=== PATIENT | male | born 1975 ===

== ENCOUNTER 2020-06-08 10:22 | Outpatient (REF) | payer BC, MEDICARE, MEDICAID, SELFPAY ==
[2020-06-08 11:29] LABS: MANUAL DIFF FLAG NO
[2020-06-08 11:38] LABS: Basophils Percent Auto 0.9 % (0-2); Eosinophils Absolute Auto 0.2 X10*3/uL (0.0-0.4); Eosinophils Percent Auto 3.5 % (0-4); Hematocrit 40.2 % (42-52); Hemoglobin 13.2 g/dl (14.0-18.0); Lymphocytes Absolute Auto 2.2 X10*3/uL (1.2-4.9); Lymphocytes Percent Auto 52.2 % (20-40); Mean Corpuscular HGB Conc 32.8 g/dl (31.0-36.0); Mean Corpuscular Hemoglobin 26.3 pg (27.0-33.0); Mean Corpuscular Volume 80.2 fL (80-98); Mean Platelet Volume 11.4 fL (9.4-12.4); Monocytes Absolute Auto 0.4 X10*3/uL (0.1-1.2); Monocytes Percent Auto 9.2 % (2-11); Neutrophils Absolute Auto 1.5 X10*3/uL (2.0-8.3); Neutrophils Percent Auto 34.2 % (45-73); Platelet Count 213 X10*3/uL (160-400); Red Blood Count 5.01 X10*6/uL (4.60-5.80); Red Cell Distribution Width 14.6 % (11.0-16.0); White Blood Count 4.3 X10*3/uL (4.8-10.8)
[2020-06-08 12:01] LABS: Alanine Aminotransferase 18 U/L (0-40); Albumin Level 4.4 g/dL (3.5-5.0); Alkaline Phosphatase 53 U/L (39-117); Anion Gap 12 (12-20); Aspartate Amino Transferase 18 U/L (5-37); Bilirubin Total 0.6 mg/dL (0.0-1.0); Blood Urea Nitrogen 15 mg/dL (9-16); Carbon Dioxide 30 mmol/L (22-29); Chloride 103 mmol/L (96-108); Cholesterol 184 mg/dL; Estimated Glomerular Filt Rate > 60; Glucose Fasting 74 mg/dL (60-99); HDL Cholesterol 61 mg/dL; LDL Cholesterol Calculated 109 mg/dl; Potassium 3.7 mmol/l (3.3-5.1); Sodium 141 mmol/L (135-145); Total Protein 7.7 g/dL (6.5-8.0); Triglycerides 72 mg/dL
[2020-06-08 12:24] LABS: Prostate Specific Antigen Scr 0.41 ng/mL (<0.05-4.0); TSH reflex Free T4 0.43 mIU/mL (0.32-4.0)
[2020-06-08 12:32] LABS: Creatinine Urine 290.07 mg/dL; Microalbum/Creatinine Ratio Ur 4.4 ug/mg cr
== END 2020-06-08 10:23 | disposition home or self-care (01) ==
LOC: HO.LAB 10:22
PROVIDERS: PCP Internal Medicine; Visit Provider Physician Assistant
DX: I10 Essential (primary) hypertension (principal); Z12.5 Encounter for screening for malignant neoplasm of prostate
CPT/HCPCS: 36415; 80053; 80061; 82043; 84153; 84443; 85025

== ENCOUNTER 2020-06-21 17:22 | Outpatient (REF) | payer BC, MEDICAID, SELFPAY | END 2020-06-21 17:23 | disposition home or self-care (01) | LOC: HO.LAB 17:22 | PROVIDERS: PCP Internal Medicine; Visit Provider Internal Medicine | DX: Z20.828 Contact with and (suspected) exposure to other viral communicable diseases (principal) | CPT/HCPCS: U0003 ==

== ENCOUNTER 2020-07-08 14:31 | Outpatient (REF) | payer BC, MEDICAID, SELFPAY | END 2020-07-08 14:32 | disposition home or self-care (01) | LOC: HO.LAB 14:31 | PROVIDERS: PCP Internal Medicine; Visit Provider Internal Medicine | DX: Z20.828 Contact with and (suspected) exposure to other viral communicable diseases (principal) | CPT/HCPCS: C9803; U0003 ==

== ENCOUNTER 2020-08-27 11:34 | Outpatient (REF) | payer BC, MEDICARE, MEDICAID, SELFPAY ==
[2020-08-27 13:34] LABS: MANUAL DIFF FLAG NO
[2020-08-27 13:48] LABS: Basophils Absolute Auto 0.1 X10*3/uL (0.0-0.2); Basophils Percent Auto 1.3 % (0-2); Eosinophils Absolute Auto 0.1 X10*3/uL (0.0-0.4); Eosinophils Percent Auto 3.6 % (0-4); Hematocrit 40.1 % (42-52); Hemoglobin 13.3 g/dl (14.0-18.0); Immature Retic Fraction 3.8 % (2.3-13.4); Lymphocytes Absolute Auto 2.1 X10*3/uL (1.2-4.9); Lymphocytes Percent Auto 54.6 % (20-40); Mean Corpuscular HGB Conc 33.2 g/dl (31.0-36.0); Mean Corpuscular Hemoglobin 26.8 pg (27.0-33.0); Mean Corpuscular Volume 80.7 fL (80-98); Mean Platelet Volume 12.3 fL (9.4-12.4); Monocytes Absolute Auto 0.4 X10*3/uL (0.1-1.2); Monocytes Percent Auto 9.9 % (2-11); Neutrophils Absolute Auto 1.2 X10*3/uL (2.0-8.3); Neutrophils Percent Auto 30.6 % (45-73); Platelet Count 197 X10*3/uL (160-400); Red Blood Count 4.97 X10*6/uL (4.60-5.80); Red Cell Distribution Width 14.5 % (11.0-16.0); Retic HGB Equivalent 31.5 pg (30.0-35.0); Reticulocyte Percent 0.9 % (0.5-1.8); Reticulocytes Absolute 0.042 X10*6/uL (0.026-0.095); White Blood Count 3.9 X10*3/uL (4.8-10.8)
[2020-08-27 14:07] LABS: Iron 147 mcg/dL (45-160); Percent Iron Saturation 50 % (15-50); Total Iron Binding Capacity 295 mcg/dL (228-428); Unsaturated Iron Binding 148 ug/dL
[2020-08-27 14:30] LABS: Ferritin 20 ng/mL (20-250)
[2020-08-27 14:44] LABS: Folate 18.6 ng/mL (> or = 4.0); Vitamin B12 972 pg/mL (200-900)
== END 2020-08-27 11:35 | disposition home or self-care (01) ==
LOC: HO.LAB 11:34
PROVIDERS: PCP Internal Medicine; Visit Provider Internal Medicine
DX: D64.9 Anemia, unspecified (principal)
CPT/HCPCS: 36415; 82607; 82728; 82746; 83540; 85025; 85045

== ENCOUNTER 2020-09-03 08:35 | Outpatient (REF) | payer BC, MEDICARE, MEDICAID, SELFPAY ==
--- NOTE | ~2020-09-03 | US_ITS ---
EXAMINATION: US ABDOMEN COMPLETE CLINICAL INFORMATION: Right upper quadrant pain. COMPARISON: Previous abdominal ultrasound August [address] of the abdomen and pelvis March 2019 TECHNIQUE: Real-time imaging of the abdominal viscera. FINDINGS: PANCREAS: Normal. ABDOMINAL AORTA: The proximal, mid, and distal segments are normal in caliber. INFERIOR VENA CAVA: Visualized portions are normal. LIVER: Normal. The liver is normal in size. The liver contour is normal. Parenchymal echogenicity is normal. No focal hepatic lesion. There is no intrahepatic biliary duct dilatation seen. GALLBLADDER: There are several small echogenic densities adjacent to the gallbladder wall. These do not move or shadow and probably represent small gallbladder wall polyps. The largest measures 3 mm. This is similar to August 2017 exam. COMMON BILE DUCT: Normal in caliber measuring 0.2 cm in diameter. RIGHT KIDNEY: There is a 1.1 x 1.1 x 1.3 cm cyst. No hydronephrosis. No renal calculi. The kidney measures 9.5 cm in maximum dimension. LEFT KIDNEY: There is a 1.8 x 1.5 x 1.6 cm cyst. No hydronephrosis. No renal calculi. The kidney measures 11.3 cm in maximum dimension. SPLEEN: Normal. The spleen measures 7.9 cm in maximum dimension. FREE FLUID: None. US/US abdomen complete IMPRESSION: Small gallbladder wall polyps. Small bilateral renal cysts.
== END 2020-09-03 08:36 | disposition home or self-care (01) ==
LOC: HO.HMGCX 08:35
PROVIDERS: PCP Internal Medicine; Visit Provider Internal Medicine
DX: R10.11 Right upper quadrant pain (principal)
CPT/HCPCS: 76700

== ENCOUNTER 2021-01-11 11:15 | Outpatient (REF) | payer BC, MEDICARE, MEDICAID, SELFPAY ==
[2021-01-11 12:02] LABS: Hematocrit 40.8 % (42-52); Hemoglobin 13.5 g/dl (14.0-18.0); Mean Corpuscular HGB Conc 33.1 g/dl (31.0-36.0); Mean Corpuscular Hemoglobin 26.4 pg (27.0-33.0); Mean Corpuscular Volume 79.7 fL (80-98); Mean Platelet Volume 11.1 fL (9.4-12.4); Platelet Count 180 X10*3/uL (160-400); Red Blood Count 5.12 X10*6/uL (4.60-5.80); Red Cell Distribution Width 14.3 % (11.0-16.0); White Blood Count 5.1 X10*3/uL (4.8-10.8)
[2021-01-11 12:37] LABS: Alanine Aminotransferase 18 U/L (0-40); Albumin Level 4.5 g/dL (3.5-5.0); Alkaline Phosphatase 59 U/L (39-117); Anion Gap 11 (12-20); Aspartate Amino Transferase 18 U/L (5-37); Bilirubin Total 0.7 mg/dL (0.0-1.0); Blood Urea Nitrogen 18 mg/dL (9-16); Calcium 9.5 mg/dL (8.4-10.2); Carbon Dioxide 30 mmol/L (22-29); Chloride 102 mmol/L (96-108); Cholesterol 171 mg/dL; Estimated Glomerular Filt Rate > 60; Glucose Fasting 84 mg/dL (60-99); HDL Cholesterol 61 mg/dL; LDL Cholesterol Calculated 96 mg/dl; Potassium 3.4 mmol/L (3.3-5.1); Prostate Specific Antigen Scr 0.36 ng/mL (<0.05-4.0); Sodium 140 mmol/L (135-145); TSH reflex Free T4 0.46 uIU/mL (0.32-4.0); Total Protein 7.7 g/dL (6.5-8.0); Triglycerides 71 mg/dL
== END 2021-01-11 11:16 | disposition home or self-care (01) ==
LOC: HO.LAB 11:15
PROVIDERS: PCP Internal Medicine; Visit Provider Physician Assistant
DX: Z12.5 Encounter for screening for malignant neoplasm of prostate (principal); I10 Essential (primary) hypertension
CPT/HCPCS: 36415; 80053; 80061; 84153; 84443; 85027

== ENCOUNTER 2021-01-19 18:00 | Outpatient (REF) | payer BC, MEDICARE, MEDICAID, SELFPAY ==
--- NOTE | ~2021-01-19 | MR_ITS ---
EXAMINATION: MR THORACIC SPINE WITHOUT CONTRAST MR LUMBAR SPINE WITHOUT CONTRAST CLINICAL INFORMATION: Scoliosis COMPARISON: Most recent thoracic and lumbar spine CT dated 12/25/2014. TECHNIQUE: Multisequence MR images of the thoracic and lumbar spine were obtained on a high-field strength scanner without contrast. FINDINGS: THORACIC SPINE: Prominent rotational dextroscoliosis of the thoracic spine is redemonstrated and appears centered at the T7 vertebral body. Alignment appears similar when compared to the CT dated 12/25/2014. There is artifact related to extensive posterior stabilization hardware extending from T4 inferiorly beyond the imaged field of view. Evaluation significantly limits the adjacent osseous structures. No evidence of acute fracture, however, if there is clinical concern, CT examination would better evaluate osseous structures. Simple bilateral renal cysts. Findings are not clinically significant and no follow-up imaging is recommended. Otherwise, the visualized paraspinal soft tissues are unremarkable. No significant disc bulge or neural foraminal stenosis within the upper thoracic spine. Evaluation for disc bulges and stenosis throughout the remaining thoracic spine is severely limited due to hardware artifact. LUMBAR SPINE: Levocurvature of the lumbar spine is redemonstrated centered at the L3 vertebral body. Prominent artifact from posterior stabilization hardware noted throughout the visualized lower thoracic spine extending to L3. Artifact limits the evaluation of the adjacent osseous structures. No evidence of acute fracture or subluxation. No loss of vertebral body height. No loss of intervertebral disc height. The paraspinal soft tissues are unremarkable. L1-L2: No significant disc bulge. No central canal or neural foraminal stenosis. L2-L3: No significant disc bulge. No central canal or neural foraminal stenosis. L3-L4: No significant disc bulge. No central canal or neural foraminal stenosis. L4-L5: No significant disc bulge. Bilateral facet arthropathy. No central canal or neural foraminal stenosis. L5-S1: No significant disc bulge. Bilateral facet arthropathy. No central canal or neural foraminal stenosis. MR/MR thoracic spine wo con IMPRESSION: 1. Prominent dextroscoliosis of the thoracic spine and associated levoscoliosis of the lumbar spine, unchanged in alignment when compared to the CT from 2015. Associated posterior stabilization hardware is redemonstrated with artifact significantly limiting evaluation of the adjacent osseous structures. 2. No definite evidence of acute osseous abnormality or hardware complication, however, if there is clinical concern, CT scan could help further evaluate for bony and hardware detail. 3. No significant disc bulge within the lower lumbar spine. Bilateral facet arthropathy at L4-L5 and L5-S1 without significant central canal or neural foraminal stenosis. Evaluation of the upper lumbar spine as well as the majority of the thoracic spine for disc bulges and stenosis is severely limited secondary to hardware artifact.
--- NOTE | ~2021-01-19 | MR_ITS ---
EXAMINATION: MR CERVICAL SPINE WITHOUT CONTRAST CLINICAL INFORMATION: Scoliosis. COMPARISON: Most recent cervical spine CT dated 04/29/2013 TECHNIQUE: MRI of the cervical spine was obtained using routine sequences without contrast. FINDINGS: VERTEBRAL BODIES AND PARASPINAL SOFT TISSUES: Straightening of the normal cervical lordosis, which may be positional or related to muscular spasm. No acute fracture or subluxation. No loss of vertebral body height. Loss of intervertebral disc height with disc desiccation at C5-C6 and C6-C7 where there are small endplate osteophytes. No marrow edema to suggest acute osseous injury. No abnormal signal within the visualized cord. The visualized paraspinal soft tissues are unremarkable. CERVICOMEDULLARY JUNCTION AND VISUALIZED POSTERIOR FOSSA: Unremarkable. SPINAL LEVELS: C2-C3: Small posterior central disc protrusion which partially effaces the ventral thecal sac. No significant neural foraminal stenosis. C3-C4: Shallow disc bulge which partially effaces the ventral thecal sac with left-sided uncinate spurring and mild left neural foraminal stenosis. C4-C5: Shallow broad-based disc bulge and posterior central disc protrusion which completely effaces the ventral thecal sac. Bilateral uncinate spurring with mild bilateral neural foraminal stenosis. C5-C6: Broad-based bulge with a shallow right paracentral disc protrusion which completely effaces the ventral thecal sac and minimally indents the adjacent cord. No significant neural foraminal stenosis. C6-C7: Shallow disc bulge and right-sided paracentral disc protrusion which completely effaces the ventral thecal sac. Bilateral uncinate spurring. No significant neural foraminal stenosis. C7-T1: No significant disc bulge. No central canal or neural foraminal stenosis. MR/MR cervical spine wo con IMPRESSION: 1. Mild degenerative disc disease at C4-C5 with a broad-based disc bulge and posterior central disc protrusion which effaces the ventral thecal sac and in combination with bilateral uncinate spurring causes mild bilateral neural foraminal stenosis. 2. Mild degenerative disc disease at C5-C6 with a broad-based disc bulge and shallow right paracentral disc protrusion which effaces the ventral thecal sac and minimally indents the adjacent cord. No neural foraminal stenosis. 3. Shallow disc bulge at C3-C4 with left-sided uncinate spurring and mild left neural foraminal stenosis. 4. Straightening of the normal cervical lordosis, which may be positional or related to muscular spasm.
== END 2021-01-19 18:01 | disposition home or self-care (01) ==
LOC: HO.MRI 18:00
PROVIDERS: PCP Internal Medicine; Visit Provider Internal Medicine
DX: M41.25 Other idiopathic scoliosis, thoracolumbar region (principal)
CPT/HCPCS: 72141; 72146; 72148

== ENCOUNTER 2021-02-03 09:11 | Emergency (ER) | payer BC, MEDICARE, MEDICAID, SELFPAY ==
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
[2021-02-03 09:13] VITALS: BP 171/126; PULSE 74; RESP 16; O2SAT 100; BMI 19.9
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
[2021-02-03] MEDS: Morphine Sulfate 4 MG/ML CARTRIDGE IVPUSH (09:40)
[2021-02-03 09:41] LABS: MANUAL DIFF FLAG NO
[2021-02-03] MEDS: 0.9 % Sodium Chloride 1,000 ML 999 ML IVCONT (09:41)
[2021-02-03 09:44] LABS: Basophils Absolute Auto 0.1 X10*3/uL (0.0-0.2); Basophils Percent Auto 1.2 % (0-2); Eosinophils Absolute Auto 0.2 X10*3/uL (0.0-0.4); Eosinophils Percent Auto 3.8 % (0-4); Hematocrit 38.2 % (42-52); Hemoglobin 12.8 g/dl (14.0-18.0); Imm Gran Abs Auto 0.01 X10*3/uL (0.00-0.03); Imm Gran Pct Auto 0.2 % (0.0-0.4); Lymphocytes Absolute Auto 2.1 X10*3/uL (1.2-4.9); Lymphocytes Percent Auto 49.1 % (20-40); Mean Corpuscular HGB Conc 33.5 g/dl (31.0-36.0); Mean Corpuscular Hemoglobin 26.9 pg (27.0-33.0); Mean Corpuscular Volume 80.4 fL (80-98); Mean Platelet Volume 11.3 fL (9.4-12.4); Monocytes Absolute Auto 0.4 X10*3/uL (0.1-1.2); Monocytes Percent Auto 9.7 % (2-11); Neutrophils Absolute Auto 1.5 X10*3/uL (2.0-8.3); Platelet Count 181 X10*3/uL (160-400); Red Blood Count 4.75 X10*6/uL (4.60-5.80); Red Cell Distribution Width 14.4 % (11.0-16.0); White Blood Count 4.2 X10*3/uL (4.8-10.8)
[2021-02-03] MEDS: ondansetron HCL 4 MG/2 ML VIAL IVPUSH (09:45)
[2021-02-03 10:00] VITALS: BP 159/103; PULSE 63; RESP 16; O2SAT 100
[2021-02-03 10:12] LABS: Alanine Aminotransferase 12 U/L (0-40); Albumin Level 3.1 g/dL (3.5-5.0); Alkaline Phosphatase 42 U/L (39-117); Aspartate Amino Transferase 11 U/L (5-37); Bilirubin Direct < 0.2 mg/dL (0.0-0.5); Bilirubin Total 0.4 mg/dL (0.0-1.0); Blood Urea Nitrogen 13 mg/dL (9-16); Carbon Dioxide 25 mmol/L (22-29); Estimated Glomerular Filt Rate > 60; Glucose Random 75 mg/dL (60-115); Sodium 143 mmol/L (135-145); Total Protein 5.3 g/dL (6.5-8.0)
[2021-02-03 10:19] LABS: Anion Gap 7 (12-20); Calcium 6.9 mg/dL (8.4-10.2); Chloride 114 mmol/L (96-108); Potassium 2.7 mmol/L (3.3-5.1)
[2021-02-03] MEDS: Potassium Chloride Packet 20 MEQ PACKET 40 MEQ PO (11:51)
[2021-02-03] MEDS: Acetaminophen 325 MG TABLET 650 MG PO (11:52)
[2021-02-03] MEDS: Cyclobenzaprine HCl 10 MG TABLET PO (11:52)
== END 2021-02-03 11:59 | disposition home or self-care (01) ==
PROVIDERS: Emergency Provider Emergency Medicine; PCP Internal Medicine
DX: T14.8XXA Other injury of unspecified body region, initial encounter (principal); E87.6 Hypokalemia; I10 Essential (primary) hypertension; Z79.899 Other long term (current) drug therapy; V89.2XXA Person injured in unspecified motor-vehicle accident, traffic, initial encounter; Y93.9 Activity, unspecified; Y92.410 Unspecified street and highway as the place of occurrence of the external cause; Y99.9 Unspecified external cause status
CPT/HCPCS: 36415; 70450; 71260; 72125; 74177; 80048; 80076; 85025; 96361; 96374; 96375; 99284; J2270; J2405

== ENCOUNTER 2021-04-19 11:30 | Outpatient (REF) | payer BC, MEDICAID, OTHER, SELFPAY ==
[2021-04-19 12:21] LABS: Anion Gap 12 (12-20); Carbon Dioxide 29 mmol/L (22-29); Chloride 103 mmol/L (96-108); Potassium 3.5 mmol/L (3.3-5.1); Sodium 140 mmol/L (135-145)
== END 2021-04-19 11:31 | disposition home or self-care (01) ==
LOC: HO.LAB 11:30
PROVIDERS: Visit Provider Physician Assistant
DX: E87.6 Hypokalemia (principal)
CPT/HCPCS: 36415; 80051

== ENCOUNTER 2021-05-18 09:48 | Outpatient (REF) | payer BC, MEDICAID, SELFPAY ==
--- NOTE | ~2021-05-18 | XR_ITS ---
EXAMINATION: XR SCOLIOSIS CLINICAL INFORMATION: Scoliosis status post spinal fusion. COMPARISON: Scoliosis study 12/08/2014. TECHNIQUE: PA and lateral views of the thoracolumbar spine are obtained. FINDINGS: Redemonstrated postsurgical changes of instrumented spinal fusion. The spinal hardware appears intact, without evidence of migration. There is residual spinal curvature as follows: Left convex cervicothoracic curvature of approximately 33 degrees, previously measuring 35 degrees. Right convex thoracic curvature of approximately 67 degrees, previously measuring 66 degrees. Left convex lumbar curvature of approximately 38 degrees, previously measuring 34 degrees. The lateral view again demonstrates mild straightening of the thoracic kyphosis and lumbar lordosis, similar compared to prior. There is mild iliac crest height discrepancy with the left side higher by approximately 1.5 cm. Risser 5. XR/XR scoliosis survey IMPRESSION: Stable postoperative appearance of the spine. No evidence of hardware complication. Residual spinal curvature is not substantially changed.
== END 2021-05-18 09:49 | disposition home or self-care (01) ==
LOC: HO.XRAY 09:48
PROVIDERS: PCP Internal Medicine; Visit Provider Physician Assistant Surgical
DX: T84.84XA Pain due to internal orthopedic prosthetic devices, implants and grafts, initial encounter (principal); M43.25 Fusion of spine, thoracolumbar region; M41.55 Other secondary scoliosis, thoracolumbar region
CPT/HCPCS: 72082

== ENCOUNTER 2021-06-17 12:56 | Outpatient (REF) | payer BC, MEDICARE, MEDICAID, SELFPAY ==
--- NOTE | ~2021-06-17 | CT_ITS ---
EXAMINATION: CT THORACIC SPINE WITHOUT CONTRAST CT LUMBAR SPINE WITHOUT CONTRAST CLINICAL INFORMATION: Scoliosis. Back pain. COMPARISON: MRI from 12/23/2020 TECHNIQUE: Multidetector helical imaging acquired in the axial plane with generation of reformatted acquisitions. This CT examination was performed using dose optimization techniques as appropriate, variously including the following: *Automated exposure control *Adjustment of mA and/or kV according to patient size (this includes techniques or standardized protocols for targeted exams where dose is matched to indication/reason for exam; i.e. extremities or head) *Use of iterative reconstruction technique DLP: 477, 482 mGy-cm. FINDINGS: There is a severe rightward scoliotic curvature of the thoracic spine with the apex of curvature at the T8 level a compensatory leftward curvature of the lumbar spine with the apex of curvature at the L2-L3 level. Aguirre rods in place with multilevel transpedicular screws spanning from the T4 through the L3 levels. No hardware fracture identified. At the T3 level, the left transpedicular screw courses across the level of the lateral recess and medial aspect of the pedicle, partially encroaching upon the central canal. Multilevel posterior osseous fusion changes are present from the T4 through the L3 levels. There are no compression fractures or subluxations. No periprosthetic lucencies identified. A disc-osteophyte complex is incompletely visualized with endplate sclerosis at the C6-C7 level. Moderate facet degeneration noted on the right side at the T2-T3 level with moderate right foraminal encroachment. No paraspinal soft tissue fluid collections are seen, though assessment is limited given presence of extensive hardware artifacts. The mid to lower lumbosacral canal is widely patent. Very mild annular bulges noted at the L4-L5 and L5-S1 levels. Bulging disc results in [id number] left foraminal encroachment at the L4-L5 level. There are nkpm-mj-iqowpvog degenerative changes and vacuum phenomenon in the sacroiliac joints bilaterally. Moderate amount of stool in the rectosigmoid colon. The paraspinal soft tissues are otherwise unremarkable. There is linear scarring versus atelectasis in the right lung base. No pleural effusions are seen. The visualized mediastinum is grossly unremarkable. CT/CT thoracic spine wo con IMPRESSION: Significant scoliotic curvature of the thoracolumbar spine with Aguirre rods in place. Posterior fusion hardware spanning from the T4 through the L3 levels. Left T3 transpedicular screw partially encroaches upon the central canal and left lateral recess. Multilevel posterolateral bony fusion changes. No hardware fracture visible. No periprosthetic lucencies identified.
--- NOTE | ~2021-06-17 | CT_ITS ---
EXAMINATION: CT THORACIC SPINE WITHOUT CONTRAST CT LUMBAR SPINE WITHOUT CONTRAST CLINICAL INFORMATION: Scoliosis. Back pain. COMPARISON: MRI from 12/23/2020 TECHNIQUE: Multidetector helical imaging acquired in the axial plane with generation of reformatted acquisitions. This CT examination was performed using dose optimization techniques as appropriate, variously including the following: *Automated exposure control *Adjustment of mA and/or kV according to patient size (this includes techniques or standardized protocols for targeted exams where dose is matched to indication/reason for exam; i.e. extremities or head) *Use of iterative reconstruction technique DLP: 477, 482 mGy-cm. FINDINGS: There is a severe rightward scoliotic curvature of the thoracic spine with the apex of curvature at the T8 level a compensatory leftward curvature of the lumbar spine with the apex of curvature at the L2-L3 level. Aguirre rods in place with multilevel transpedicular screws spanning from the T4 through the L3 levels. No hardware fracture identified. At the T3 level, the left transpedicular screw courses across the level of the lateral recess and medial aspect of the pedicle, partially encroaching upon the central canal. Multilevel posterior osseous fusion changes are present from the T4 through the L3 levels. There are no compression fractures or subluxations. No periprosthetic lucencies identified. A disc-osteophyte complex is incompletely visualized with endplate sclerosis at the C6-C7 level. Moderate facet degeneration noted on the right side at the T2-T3 level with moderate right foraminal encroachment. No paraspinal soft tissue fluid collections are seen, though assessment is limited given presence of extensive hardware artifacts. The mid to lower lumbosacral canal is widely patent. Very mild annular bulges noted at the L4-L5 and L5-S1 levels. Bulging disc results in hkoc-tu-htpnqwzn left foraminal encroachment at the L4-L5 level. There are qnfs-lx-jzasohzq degenerative changes and vacuum phenomenon in the sacroiliac joints bilaterally. Moderate amount of stool in the rectosigmoid colon. The paraspinal soft tissues are otherwise unremarkable. There is linear scarring versus atelectasis in the right lung base. No pleural effusions are seen. The visualized mediastinum is grossly unremarkable. CT/CT lumbar spine wo con IMPRESSION: Significant scoliotic curvature of the thoracolumbar spine with Aguirre rods in place. Posterior fusion hardware spanning from the T4 through the L3 levels. Left T3 transpedicular screw partially encroaches upon the central canal and left lateral recess. Multilevel posterolateral bony fusion changes. No hardware fracture visible. No periprosthetic lucencies identified.
== END 2021-06-17 12:57 | disposition home or self-care (01) ==
LOC: HO.CT 12:56
PROVIDERS: Visit Provider Orthopaedic Surgery
DX: T84.84XD Pain due to internal orthopedic prosthetic devices, implants and grafts, subsequent encounter (principal)
CPT/HCPCS: 72128; 72131

== ENCOUNTER 2021-07-25 08:50 | Outpatient (REF) | payer MEDICARE, MEDICAID, SELFPAY ==
[2021-07-25 09:08] LABS: MANUAL DIFF FLAG NO
[2021-07-25 09:24] LABS: Basophils Percent Auto 0.9 % (0-2); Eosinophils Absolute Auto 0.2 X10*3/uL (0.0-0.4); Eosinophils Percent Auto 3.5 % (0-4); Hematocrit 39.2 % (42.0-52.0); Hemoglobin 12.9 g/dl (14.0-18.0); Imm Gran Abs Auto 0.01 X10*3/uL (0.00-0.03); Imm Gran Pct Auto 0.2 % (0.0-0.4); Lymphocytes Absolute Auto 1.9 X10*3/uL (1.2-4.9); Lymphocytes Percent Auto 44.8 % (20-40); Mean Corpuscular HGB Conc 32.9 g/dl (31.0-36.0); Mean Corpuscular Hemoglobin 26.5 pg (27.0-33.0); Mean Corpuscular Volume 80.7 fL (80.0-98.0); Mean Platelet Volume 11.2 fL (9.4-12.4); Monocytes Absolute Auto 0.5 X10*3/uL (0.1-1.2); Monocytes Percent Auto 10.4 % (2-11); Neutrophils Absolute Auto 1.7 x10*3/uL (2.0-8.3); Neutrophils Percent Auto 40.2 % (45-73); Platelet Count 216 X10*3/uL (160-400); Red Blood Count 4.86 X10*6/uL (4.60-5.80); Red Cell Distribution Width 14.3 % (11.0-16.0); White Blood Count 4.3 X10*3/uL (4.8-10.8)
[2021-07-25 09:37] LABS: Estimated Average Glucose 111 mg/dL; Hemoglobin A1c % 5.5 %
[2021-07-25 09:48] LABS: Alanine Aminotransferase 22 U/L (0-40); Albumin Level 4.2 g/dL (3.5-5.0); Alkaline Phosphatase 57 U/L (39-117); Anion Gap 8 (12-20); Aspartate Amino Transferase 17 U/L (5-37); Bilirubin Total 0.6 mg/dL (0.0-1.0); Blood Urea Nitrogen 11 mg/dL (9-16); Calcium 9.5 mg/dL (8.4-10.2); Carbon Dioxide 32 mmol/L (22-29); Chloride 103 mmol/L (96-108); Cholesterol 158 mg/dL; Estimated Glomerular Filt Rate > 60; Glucose Fasting 83 mg/dL (60-99); HDL Cholesterol 39 mg/dL; LDL Cholesterol Calculated 95 mg/dl; Potassium 3.4 mmol/L (3.3-5.1); Sodium 140 mmol/L (135-145); Total Protein 7.3 g/dL (6.5-8.0); Triglycerides 122 mg/dL
== END 2021-07-25 08:51 | disposition home or self-care (01) ==
LOC: HO.LAB 08:50
PROVIDERS: PCP Internal Medicine; Visit Provider Nurse Practitioner Acute Care
DX: I10 Essential (primary) hypertension (principal)
CPT/HCPCS: 36415; 80053; 80061; 83036; 85025

== ENCOUNTER 2021-08-01 11:18 | Outpatient (REF) | payer BC, MEDICAID, SELFPAY ==
[2021-08-01 13:08] LABS: Binax Internal Control QC Valid; Binax Now Covid-19 Ag Positive (Negative)
== END 2021-08-01 11:19 | disposition home or self-care (01) ==
LOC: HO.LAB 11:18
PROVIDERS: Visit Provider Internal Medicine
DX: Z20.822 Contact with and (suspected) exposure to COVID-19 (principal)
CPT/HCPCS: 36415; C9803

== ENCOUNTER 2021-08-09 07:52 | Outpatient (REF) | payer BC, MEDICAID, SELFPAY ==
[2021-08-09 08:37] LABS: Binax Internal Control QC Valid; Binax Now Covid-19 Ag Negative (Negative)
== END 2021-08-09 07:53 | disposition home or self-care (01) ==
LOC: HO.LAB 07:52
PROVIDERS: Visit Provider Internal Medicine
DX: Z20.822 Contact with and (suspected) exposure to COVID-19 (principal)
CPT/HCPCS: C9803

== ENCOUNTER 2021-08-29 08:51 | Outpatient (REF) | payer BC, MEDICARE, SELFPAY ==
[2021-08-29 10:11] LABS: Anion Gap 11 (12-20); Blood Urea Nitrogen 12 mg/dL (9-16); Calcium 9.6 mg/dL (8.4-10.2); Carbon Dioxide 32 mmol/L (22-29); Chloride 102 mmol/L (96-108); Estimated Glomerular Filt Rate > 60; Glucose Random 86 mg/dL (60-115); Potassium 3.7 mmol/L (3.3-5.1); Sodium 141 mmol/L (135-145)
== END 2021-08-29 08:52 | disposition home or self-care (01) ==
LOC: HO.LAB 08:51
PROVIDERS: PCP Internal Medicine; Visit Provider Internal Medicine
DX: E87.6 Hypokalemia (principal)
CPT/HCPCS: 36415; 80048

== ENCOUNTER 2021-10-24 09:09 | Outpatient (REF) | payer BC, MEDICARE, MEDICAID, SELFPAY ==
[2021-10-24 09:33] LABS: MANUAL DIFF FLAG NO
[2021-10-24 10:04] LABS: Basophils Absolute Auto 0.1 X10*3/uL (0.0-0.2); Basophils Percent Auto 1.1 % (0-2); Eosinophils Absolute Auto 0.2 X10*3/uL (0.0-0.4); Eosinophils Percent Auto 2.6 % (0-4); Hematocrit 38.8 % (42.0-52.0); Hemoglobin 12.8 g/dl (14.0-18.0); Imm Gran Abs Auto 0.01 X10*3/uL (0.00-0.03); Imm Gran Pct Auto 0.2 % (0.0-0.4); Mean Corpuscular Hemoglobin 27.1 pg (27.0-33.0); Monocytes Absolute Auto 0.6 X10*3/uL (0.1-1.2); Monocytes Percent Auto 9.8 % (2-11); Neutrophils Absolute Auto 3.3 x10*3/uL (2.0-8.3); Neutrophils Percent Auto 53.3 % (45-73); Platelet Count 216 X10*3/uL (160-400); Red Blood Count 4.73 X10*6/uL (4.60-5.80); White Blood Count 6.2 X10*3/uL (4.8-10.8)
[2021-10-24 10:30] LABS: Alanine Aminotransferase 21 U/L (0-40); Albumin Level 4.4 g/dL (3.5-5.0); Alkaline Phosphatase 56 U/L (39-117); Anion Gap 10 (12-20); Aspartate Amino Transferase 17 U/L (5-37); Bilirubin Total 0.5 mg/dL (0.0-1.0); Blood Urea Nitrogen 13 mg/dL (9-16); Calcium 9.4 mg/dL (8.4-10.2); Carbon Dioxide 31 mmol/L (22-29); Chloride 102 mmol/L (96-108); Estimated Glomerular Filt Rate > 60; Glucose Random 82 mg/dL (60-115); Potassium 3.8 mmol/L (3.3-5.1); Sodium 139 mmol/L (135-145); Total Protein 7.5 g/dL (6.5-8.0)
== END 2021-10-24 09:10 | disposition home or self-care (01) ==
LOC: HO.LAB 09:09
PROVIDERS: PCP Internal Medicine; Visit Provider Orthopaedic Surgery
DX: T84.84XA Pain due to internal orthopedic prosthetic devices, implants and grafts, initial encounter (principal); M43.25 Fusion of spine, thoracolumbar region
CPT/HCPCS: 36415; 80053; 85025

== ENCOUNTER 2021-11-20 02:50 | Emergency (ER) | payer BC, MEDICARE, SELFPAY ==
--- NOTE | ~2021-11-20 | CT_ITS ---
EXAMINATION: CT ABDOMEN AND PELVIS WITH CONTRAST CLINICAL INFORMATION: Abdominal pain. Question constipation. Spinal surgery hardware removed 1 week ago. COMPARISON: CT thoracic and lumbar spine 06/17/2021. TECHNIQUE: Multidetector volumetric images were obtained from the superior aspect of the liver through the pubic symphysis following administration 85 mL of Omnipaque 350 intravenous contrast. Sagittal and coronal reformatted images were obtained on the technologist's workstation. Oral contrast: No This CT examination was performed using dose optimization techniques as appropriate, variously including the following: *Automated exposure control *Adjustment of mA and/or kV according to patient size (this includes techniques or standardized protocols for targeted exams where dose is matched to indication/reason for exam; i.e. extremities or head) *Use of iterative reconstruction technique DLP: 452 mGy-cm FINDINGS: LUNG BASES: The visualized lung bases are unremarkable. LIVER, GALLBLADDER, AND BILIARY TREE: The liver is normal in size, shape, and attenuation. No focal hepatic lesion or biliary ductal dilatation is present. The gallbladder is unremarkable with no evidence of radiopaque gallstones, gallbladder wall thickening, or obvious pericholecystic inflammatory changes. PANCREAS: Unremarkable. SPLEEN: Unremarkable. ADRENAL GLANDS: Unremarkable. KIDNEYS AND URETERS: Multiple bilateral rounded low density benign-appearing simple cyst requiring no additional imaging follow-up are noted. No hydronephrosis or renal calculi. BLADDER: Distended. GASTROINTESTINAL TRACT: Moderate quantity of stool within the colon. No colonic distention. The appendix measures 8 mm in diameter (series 7 image 36, series 8 image 64). No periappendiceal inflammatory changes are noted. Gas is noted within the base of the appendix. Fluid is present within the lumen of the fundus and distal body of the appendix. Normal terminal ileum. No free intraperitoneal fluid or gas collections. Normal stomach without gastric distention. No small bowel dilatation. ABDOMINAL WALL: No significant hernia is appreciated. LYMPH NODES: Normal. VASCULAR: Unremarkable. PELVIC VISCERA: Normal size prostate. OSSEOUS STRUCTURES: Marked thoracic scoliosis. Posterior paraspinous fluid and minimal punctate gas along the visualized thoracic spine and lumbar spine prominent thoracolumbar scoliosis convex rightward. Multiple transpedicular screw holes are noted related to previously visualized hardware. CT/CT abdomen pelvis w con IMPRESSION: *Borderline findings suspicious for appendicitis. The appendix measures 8 mm diameter, 2 mm above normal limits in size. No periappendiceal inflammatory changes. No free intraperitoneal fluid or gas collections. (Series 7 image 36, series 8 image 64, series 3 image 53). *Moderate colonic stool burden. No colonic dilatation. No small bowel dilatation. No dilatation of the stomach. *Partially visualized prominent thoracolumbar scoliosis and postoperative paraspinous fluid collection status post removal of spinal fixation hardware. This critical result was discussed with Svetlana Brooks MD by telephone at 11/20/2021 6:33 AM and it was ascertained that the content and urgency of the report was understood at the time of direct communication.
[2021-11-20 03:07] VITALS: BP 151/102; PULSE 97; RESP 16; O2SAT 97; BMI 26.6
[2021-11-20 03:16] VITALS: TEMP 37.5
[2021-11-20 04:09] VITALS: BP 151/93; PULSE 81; RESP 16; O2SAT 96
--- NOTE | 2021-11-20 04:52 | ED_ITS ---
HPI - General Adult General Chief complaint: Back Pain/Injury Stated complaint: back pain; surgery 1wk ago Time Seen by Provider: 11/20/21 04:37 Source: patient and family () Mode of arrival: ambulatory History of Present Illness HPI narrative: 46-year-old male who is postop day 4, status post spinal hardware removal and now presents with increasing constipation as well as lower back pain that patient describes is worse with trying to move from side to side. He denies any difficulties with urination, groin numbness, pain/weakness/numbness/tingling down either lower extremity, denies any fevers or chills but has been unable to have a bowel movement and patient states feeling chills. Related Data Home Medications Medication Instructions Recorded Confirmed gabapentin 300 mg 11/20/21 lidocaine 5 % topical patch 2 patch TOPICAL DAILY 11/20/21 11/20/21 oxycodone 10 mg tablet,crush tab PO 11/20/21 resistant,extended release 12 hr senna 17 mg 11/20/21 Previous Rx's Medication Instructions Recorded amlodipine 10 mg tablet 10 mg PO DAILY 90 Days #90 tab 07/12/21 lisinopril 40 mg tablet 40 mg PO DAILY #90 tab 07/12/21 ibuprofen 800 mg tablet 800 mg PO Q8H PRN #30 tab 07/19/21 CPAP (CPAP Machine/Device) #1 ea 08/23/21 quetiapine 50 mg tablet 50 mg PO BEDTIME 90 Days #90 tab 08/23/21 tramadol 50 mg tablet 50 mg PO BEDTIME PRN 30 Days #30 08/23/21 tab Allergies Allergy/AdvReac Type Severity Reaction Status Date / Time No Known Allergies Allergy Verified 08/23/21 09:26 Review of Systems Review of Systems: Pertinent positives and negatives as stated in HPI 10 point review of systems is otherwise negative. [facility] Past Medical History Source: nursing notes reviewed Medical History Allergic rhinitis Cervical myofascial strain Contusion of left chest wall Gallbladder polyp Hepatitis B core antibody positive Hydrocele Insomnia Left-sided headache Obstructive sleep apnea Vitamin D deficiency Surgical History History of hydrocelectomy History of surgery Thoracolumbar back pain Family History Family History Father Hypertension Mother Hypertension Maternal Aunt Past heart attack Sister Brain aneurysm Social History Social History Housing: House Alcohol intake: never Patient Tobacco Use Status: Never used Tobacco e-Cigarette/Vaping Use: Never Used Second Hand Smoke Exposure: Yes Advance Directives: No service: No Current occupational status: unemployed Physical Exam ED Vital Signs: Vital Signs - 24 hr 11/20/21 03:07 11/20/21 03:16 11/20/21 04:09 Temperature 99.5 F Pulse Rate 97 81 Respiratory Rate 16 16 Blood Pressure 151/102 H 151/93 H Pulse Oximetry 97 96 11/20/21 06:06 Temperature Pulse Rate 68 Respiratory Rate 18 Blood Pressure 144/91 H Pulse Oximetry 98 BMI result Body Mass Index 26.6 VITAL SIGNS: Reviewed. GENERAL: Well developed, well nourished, in no acute distress. HEAD: Normocephalic/atraumatic EYES: PERRLA, EOMI EARS: Ext canals without abnormality OROPHARYNX: no oral lesions noted, posterior pharynx clear LUNGS: Normal breath sounds. No adventitious sounds or accessory muscle use. SpO2<97> CARDIOVASCULAR: Regular rate and rhythm without noted murmurs ABDOMEN: Soft, diffuse abdominal discomfort without specific rebound, non- distended with bowel sounds. BACK: Midline well-approximated incision from mid scapular vertebral area down into approximate L3 without erythema, induration or drainage. MUSCULOSKELETAL: No tenderness, deformities, or effusions noted on gross inspection. EXTREMITIES: No cyanosis, clubbing or edema. SKIN: Inspection of the skin reveals no rashes NEUROLOGIC: Alert and oriented x 4. Strength and sensation to light touch were grossly intact x 4. Course Course Course Narrative: 46-year-old male with history and clinical presentation consistent with suspected constipation associated with pain medication for postsurgical pain control. No evidence to suggest spine final abscess or cauda equina, however will scan abdomen pelvis with IV contrast and obtain basic labs. Review of all investigations only significant for an appendix which measures 8 mm in diameter without periappendiceal inflammatory changes and other was no leukocytosis and no concerning findings of the spine. The results were discussed with the patient and his at bedside as well as discussing the CT findings with the on-call surgeon who does not feel that intervention is required at this time. These recommendations were discussed with patient and his and patient was discharged home in stable condition with strict instructions to return should he began developing fevers, vomiting and/or worsening abdominal pain. Medical Decision Making Lab Data Result diagrams: 11/20/21 05:05 11/20/21 05:05 Labs: Lab Results 11/20/21 11/20/21 11/20/21 Range/Units 05:05 05:05 06:02 WBC 7.6 (4.8-10.8) X10*3/uL RBC 3.74 L D (4.60-5.80) X10*6/uL Hgb 9.8 L D (14.0-18.0) g/dl Hct 29.3 L D (42.0-52.0) % MCV 78.3 L (80.0-98.0) fL MCH 26.2 L (27.0-33.0) pg MCHC 33.4 (31.0-36.0) g/dl RDW 14.3 (11.0-16.0) % Plt Count 342 D (160-400) X10*3/uL MPV 9.3 L (9.4-12.4) fL Immature Gran % (Auto) 0.5 H (0.0-0.4) % Neut % (Auto) 64.8 (45-73) % Lymph % (Auto) 20.7 (20-40) % [place] % (Auto) 9.3 (2-11) % Eos % (Auto) 4.2 H (0-4) % Baso % (Auto) 0.5 (0-2) % Lymph # (Auto) 1.6 (1.2-4.9) X10*3/uL [place] # (Auto) 0.7 (0.1-1.2) X10*3/uL Eos # (Auto) 0.3 (0.0-0.4) X10*3/uL Baso # (Auto) 0.0 (0.0-0.2) X10*3/uL Abs Immat Gran (auto) 0.04 H (0.00-0.03) X10*3/uL Absolute Neuts (auto) 4.9 (2.0-8.3) x10*3/uL Absolute Nucleated RBC 0.000 (0.0-0.012) X10*3/uL Nucleated RBC % (auto) 0.0 (0.0-0.2) /100WBC Sodium 138 (135-145) mmol/L Potassium 3.6 (3.3-5.1) mmol/L Chloride 101 (96-108) mmol/L Carbon Dioxide 28 (22-29) mmol/L Anion Gap 13 (12-20) BUN 13 (9-16) mg/dL Creatinine 0.90 (0.5-1.4) mg/dL Estim Creat Clear Calc 93.8 Estimated GFR > 60 Random Glucose 109 (60-115) mg/dL Calcium 9.3 (8.4-10.2) mg/dL Total Bilirubin 0.4 (0.0-1.0) mg/dL AST 18 (5-37) U/L ALT 24 (0-40) U/L Alkaline Phosphatase 67 (39-117) U/L Total Protein 6.4 L (6.5-8.0) g/dL Albumin 3.5 D (3.5-5.0) g/dL Urine Color YELLOW Urine Appearance HAZY Urine pH 7.0 (5.0-8.0) Ur Specific [place] 1.010 (1.005-1.025) Urine Protein NEG (NEG-TRACE) MG/DL Urine Glucose (UA) NEG (NEG) MG/DL Urine Ketones NEG (NEG) MG/DL Urine Blood NEG (NEG) Urine Nitrite NEG (NEG) Ur Leukocyte Esterase NEG (NEG) Discharge Plan Discharge Clinical Impression: Abdominal discomfort, Constipation, Back pain Patient Disposition: Home, Self-Care Instructions: Acute Abdominal Pain (ED), Back Pain (ED), Constipation (ED), Fleet Enema (ED), High Fiber Diet (ED) Additional Instructions: 1. Increase fluid hydration, especially with water. Recommend taking MiraLax twice a day. Do not repeat magnesium citrate at this time. 2. Resume all home medications as prescribed. 3. Follow-up with your primary care provider Sunday morning as scheduled. Do not hesitate to return to the emergency room should you develop increasing abdominal pain, vomiting, fevers. Prescriptions: No Action lidocaine 5 % adhesive patch,medicated 2 patch topical DAILY 0RF oxycodone 10 mg tablet,oral only,ext.rel.12 hr PO 0RF senna 17 mg 0RF gabapentin 300 mg 0RF quetiapine 50 mg tablet 50 mg PO BEDTIME 90 Days Qty: 90 0RF (DME) CPAP Machine/Device Device See Rx Instructions .Route Qty: 1 0RF Rx Instructions: As directed auto PAP 4-16 cm H20 himidified air tramadol 50 mg tablet 50 mg PO BEDTIME PRN (Reason: pain) 30 Days Qty: 30 1RF lisinopril 40 mg tablet 40 mg PO DAILY Qty: 90 1RF amlodipine 10 mg tablet 10 mg PO DAILY 90 Days Qty: 90 1RF ibuprofen 800 mg tablet 800 mg PO Q8H PRN (Reason: pain (scale score 7-10)) Qty: 30 0RF Referrals: Po,Lily Ponce MD [Primary Care Provider] -
[2021-11-20] MEDS: Ketorolac Tromethamine 15 MG/ML VIAL IM (04:58)
[2021-11-20] MEDS: 0.9 % Sodium Chloride 1,000 ML 999 ML IV (05:09)
[2021-11-20 05:11] LABS: MANUAL DIFF FLAG NO
[2021-11-20 05:12] LABS: Basophils Percent Auto 0.5 % (0-2); Eosinophils Absolute Auto 0.3 X10*3/uL (0.0-0.4); Eosinophils Percent Auto 4.2 % (0-4); Hematocrit 29.3 % (42.0-52.0); Hemoglobin 9.8 g/dl (14.0-18.0); Imm Gran Abs Auto 0.04 X10*3/uL (0.00-0.03); Imm Gran Pct Auto 0.5 % (0.0-0.4); Lymphocytes Absolute Auto 1.6 X10*3/uL (1.2-4.9); Lymphocytes Percent Auto 20.7 % (20-40); Mean Corpuscular HGB Conc 33.4 g/dl (31.0-36.0); Mean Corpuscular Hemoglobin 26.2 pg (27.0-33.0); Mean Corpuscular Volume 78.3 fL (80.0-98.0); Mean Platelet Volume 9.3 fL (9.4-12.4); Monocytes Absolute Auto 0.7 X10*3/uL (0.1-1.2); Monocytes Percent Auto 9.3 % (2-11); Neutrophils Absolute Auto 4.9 x10*3/uL (2.0-8.3); Neutrophils Percent Auto 64.8 % (45-73); Platelet Count 342 X10*3/uL (160-400); Red Blood Count 3.74 X10*6/uL (4.60-5.80); Red Cell Distribution Width 14.3 % (11.0-16.0); White Blood Count 7.6 X10*3/uL (4.8-10.8)
[2021-11-20 05:28] LABS: Alanine Aminotransferase 24 U/L (0-40); Albumin Level 3.5 g/dL (3.5-5.0); Alkaline Phosphatase 67 U/L (39-117); Anion Gap 13 (12-20); Aspartate Amino Transferase 18 U/L (5-37); Bilirubin Total 0.4 mg/dL (0.0-1.0); Blood Urea Nitrogen 13 mg/dL (9-16); Calcium 9.3 mg/dL (8.4-10.2); Carbon Dioxide 28 mmol/L (22-29); Chloride 101 mmol/L (96-108); Creatinine Clr Calc Pharmacy 93.8; Estimated Glomerular Filt Rate > 60; Glucose Random 109 mg/dL (60-115); Potassium 3.6 mmol/L (3.3-5.1); Sodium 138 mmol/L (135-145); Total Protein 6.4 g/dL (6.5-8.0)
[2021-11-20] MEDS: iohexoL 350 MG/ML 100 ML INFUS..BTL 85 ML IV (05:58)
[2021-11-20 06:06] VITALS: BP 144/91; PULSE 68; RESP 18; O2SAT 98
[2021-11-20 06:08] LABS: Appearance Urine HAZY; Color Urine YELLOW; Glucose Urine UA NEG (NEG); Leukocyte Esterase Urine NEG (NEG); Nitrite Urine NEG (NEG); Urine Blood NEG (NEG); Urine Ketones NEG (NEG); Urine Protein NEG (NEG-TRACE)
== END 2021-11-20 07:28 | disposition home or self-care (01) ==
PROVIDERS: Emergency Provider Student in an Organized Health Care Education/Training Program; PCP Internal Medicine
DX: M54.9 Dorsalgia, unspecified (principal); K59.00 Constipation, unspecified; R10.9 Unspecified abdominal pain; Z98.890 Other specified postprocedural states
CPT/HCPCS: 36415; 74177; 80053; 81003; 85025; 96360; 96372; 99284; 99285; J1885; Q9967

== ENCOUNTER 2021-11-21 19:27 | Emergency (ER) | payer BC, MEDICARE, SELFPAY ==
--- NOTE | ~2021-11-21 | MR_ITS ---
EXAMINATION: MRI THORACIC SPINE WITHOUT AND WITH CONTRAST MRI LUMBAR SPINE WITHOUT AND WITH CONTRAST CLINICAL INFORMATION: Thoracic and lumbar spine pain. COMPARISON: CT scan of the thoracic and lumbar spine 06/17/2021. MRI of thoracic and lumbar spine 01/19/2021. TECHNIQUE: Multiplanar MR imaging of the thoracic and lumbar spine was performed without and with contrast. A total of 7.5 mL Gadavist was utilized for this examination. FINDINGS: Thoracic spine: There is spinal scoliosis with a pronounced rightward convex curvature of the thoracic spine best depicted on coronal managing member image 25 of 31 series 2. Alignment is otherwise normal in the sagittal dimension. Vertebral body heights are preserved. There are chronic postsurgical changes related to an old spinal fusion within the thoracic spine. Much of the hardware has been since removed. There is a paraspinal fluid collection that extends in a vertical orientation along the dorsal spine from T3 into the lumbar region. There is no canal or neuroforaminal compromise. No cord compression or abnormal intramedullary signal changes. Postcontrast images reveal no abnormal intradural enhancement. Lumbar spine: There is spinal scoliosis with a pronounced leftward convex curvature of the lumbar spine. There are chronic postoperative changes of a spinal fusion. Much of the hardware has been since removed however there is a residual paraspinal fluid collection extends down to the level of L3. Again there is spinal scoliosis with a pronounced leftward convex curvature of the lumbar spine. Alignment is otherwise normal in the sagittal dimension. Vertebral heights are preserved. No acute bone marrow signal changes. Intervertebral disc height and signal intensity is maintained at all levels. The tip of the conus medullaris is located at L1. No mass effect on the conus. Visualized distal cord signal intensity is normal. Annular contours are normal at all levels and there is no canal or neuroforaminal compromise. No mass effect on the traversing or foraminal nerve roots within the lumbar spine. Limited visualization of the retroperitoneal anatomy reveals a few small well marginated benign-appearing cystic lesions within both kidneys. Psoas and paraspinal muscle groups are symmetric. MR/MR thoracic spine wo/w con IMPRESSION: There are expected postoperative changes related to the removal of spinal fusion hardware. There is a residual fluid collection most likely representing a seroma that extends along the posterior spine from level of T3-L3. There is spinal scoliosis with a pronounced rightward convex curvature of the thoracic spine and a leftward convex curvature of the lumbar spine. Otherwise unremarkable examination in that there is no canal or neuroforaminal compromise. No cord compression or abnormal intramedullary signal changes.
--- NOTE | ~2021-11-21 | MR_ITS ---
EXAMINATION: MRI THORACIC SPINE WITHOUT AND WITH CONTRAST MRI LUMBAR SPINE WITHOUT AND WITH CONTRAST CLINICAL INFORMATION: Thoracic and lumbar spine pain. COMPARISON: CT scan of the thoracic and lumbar spine 06/17/2021. MRI of thoracic and lumbar spine 01/19/2021. TECHNIQUE: Multiplanar MR imaging of the thoracic and lumbar spine was performed without and with contrast. A total of 7.5 mL Gadavist was utilized for this examination. FINDINGS: Thoracic spine: There is spinal scoliosis with a pronounced rightward convex curvature of the thoracic spine best depicted on coronal manufacturing helper image 25 of 31 series 2. Alignment is otherwise normal in the sagittal dimension. Vertebral body heights are preserved. There are chronic postsurgical changes related to an old spinal fusion within the thoracic spine. Much of the hardware has been since removed. There is a paraspinal fluid collection that extends in a vertical orientation along the dorsal spine from T3 into the lumbar region. There is no canal or neuroforaminal compromise. No cord compression or abnormal intramedullary signal changes. Postcontrast images reveal no abnormal intradural enhancement. Lumbar spine: There is spinal scoliosis with a pronounced leftward convex curvature of the lumbar spine. There are chronic postoperative changes of a spinal fusion. Much of the hardware has been since removed however there is a residual paraspinal fluid collection extends down to the level of L3. Again there is spinal scoliosis with a pronounced leftward convex curvature of the lumbar spine. Alignment is otherwise normal in the sagittal dimension. Vertebral heights are preserved. No acute bone marrow signal changes. Intervertebral disc height and signal intensity is maintained at all levels. The tip of the conus medullaris is located at L1. No mass effect on the conus. Visualized distal cord signal intensity is normal. Annular contours are normal at all levels and there is no canal or neuroforaminal compromise. No mass effect on the traversing or foraminal nerve roots within the lumbar spine. Limited visualization of the retroperitoneal anatomy reveals a few small well marginated benign-appearing cystic lesions within both kidneys. Psoas and paraspinal muscle groups are symmetric. MR/MR lumbar spine wo/w con IMPRESSION: There are expected postoperative changes related to the removal of spinal fusion hardware. There is a residual fluid collection most likely representing a seroma that extends along the posterior spine from level of T3-L3. There is spinal scoliosis with a pronounced rightward convex curvature of the thoracic spine and a leftward convex curvature of the lumbar spine. Otherwise unremarkable examination in that there is no canal or neuroforaminal compromise. No cord compression or abnormal intramedullary signal changes.
--- NOTE | ~2021-11-21 | CT_ITS ---
EXAMINATION: CT ABDOMEN AND PELVIS WITH CONTRAST CLINICAL INFORMATION: Low back pain. Right lower quadrant pain. COMPARISON: None TECHNIQUE: Multidetector volumetric images were obtained from the superior aspect of the liver through the pubic symphysis following administration 85 mL of Omnipaque 350 intravenous contrast. Sagittal and coronal reformatted images were obtained on the technologist's workstation. Oral contrast: No This CT examination was performed using dose optimization techniques as appropriate, variously including the following: *Automated exposure control *Adjustment of mA and/or kV according to patient size (this includes techniques or standardized protocols for targeted exams where dose is matched to indication/reason for exam; i.e. extremities or head) *Use of iterative reconstruction technique DLP: 405 mGy-cm FINDINGS: LUNG BASES: The lung bases are clear. The heart size normal. LIVER, GALLBLADDER, AND BILIARY TREE: The liver is normal size, contour and density. No focal lesion or intrahepatic ductal dilatation seen. The gallbladder is unremarkable with no evidence of radiopaque gallstones, gallbladder wall thickening, or obvious pericholecystic inflammatory changes. PANCREAS: Unremarkable. SPLEEN: Unremarkable. ADRENAL GLANDS: Unremarkable. KIDNEYS AND URETERS: The kidneys are normal in size, shape, and attenuation. No hydronephrosis, hydroureter, or calculi seen. No perinephric stranding. There are nonenhancing bilateral parapelvic right renal cysts and a midpole left cortical cysts. BLADDER: Unremarkable. GASTROINTESTINAL TRACT: There is scattered stool and gas seen throughout the colon without distention. There is mild prominence of the small bowel loops in the distal ileal segment but no obstructive etiology seen. The appendix is visualized and appears normal caliber.. ABDOMINAL WALL: No significant hernia is appreciated. LYMPH NODES: No abnormal size pelvic, retroperitoneal or inguinal lymph nodes seen. VASCULAR: Unremarkable. PELVIC VISCERA: The prostate gland is mildly enlarged. No free fluid or free air seen. OSSEOUS STRUCTURES: There is mild levoscoliosis of lumbar spine no aggressive lytic or sclerotic process seen. CT/CT abdomen pelvis w con IMPRESSION: Mild to moderate constipation most prominent descending colon and cecum region. The appendix is normal caliber. No signs of obstruction, free free air or free fluid. Moderate rotatory levoscoliosis of lumbar spine. No lytic or sclerotic process seen. Fleischner guidelines were followed.
--- NOTE | 2021-11-21 19:39 | ED.ABDPAIN ---
HPI - Abdominal Pain General Chief Complaint: Back Pain/Injury Stated Complaint: LOW ABD PAIN RAD TO BACK X'S 2 DAYS Time Seen by Provider: 11/21/21 19:37 Source: patient Mode of arrival: ambulatory Limitations: no limitations History of Present Illness HPI narrative: This is a 46-year-old male past medical history significant for chronic back pain, anxiety, hypertension presenting to the emergency department with complaints of back pain cervical and thoracic, Right lower quadrant pain and lower back pain times 2 days. Patient tells me that he is having 10/10 lower back pain, he tells me I am having all different types of pain and he has a hard time describing with the pain feels like. He tells me that the pain in his back pain radiating to the right lower quadrant. He tells me he recently got surgery 2 weeks ago in [place] in [place]. He tells me the surgery is for herniated discs and removal of hardwar for scoliosis. He tells me that the pain in his back is worse with movement better at rest he also reports that the pain is worse with movement of his right leg. patient reports constipation as well. He reports that he is taking stool softeners with little to no relief. Patient tells me that his pain is so bad sometimes he cannot get to the bathroom however he does feel as though he needs to go but because of the pain he does not make it to the bathroom. He denies fevers, chills, history of IV drug abuse, nausea, vomiting, chest pain, shortness of breath. MD elicited complaint: abdominal pain Pertinent past history: none Location: none Radiation: none Migration to: no migration Exacerbating factors: nothing Relieving factors: nothing Related Data Home Medications Medication Instructions Recorded Confirmed gabapentin 300 mg 11/20/21 11/21/21 lidocaine 5 % topical patch 2 patch TOPICAL DAILY 11/20/21 11/21/21 oxycodone 10 mg tablet,crush tab PO 11/20/21 11/21/21 resistant,extended release 12 hr senna 17 mg 11/20/21 11/21/21 Previous Rx's Medication Instructions Recorded amlodipine 10 mg tablet 10 mg PO DAILY 90 Days #90 tab 07/12/21 lisinopril 40 mg tablet 40 mg PO DAILY #90 tab 07/12/21 ibuprofen 800 mg tablet 800 mg PO Q8H PRN #30 tab 07/19/21 CPAP (CPAP Machine/Device) #1 ea 08/23/21 quetiapine 50 mg tablet 50 mg PO BEDTIME 90 Days #90 tab 08/23/21 cyclobenzaprine 5 mg tablet 5 mg PO BEDTIME #15 tab 11/21/21 gabapentin 300 mg capsule 300 mg PO BEDTIME #15 cap 11/21/21 oxycodone 5 mg tablet 5 mg PO TID PRN #21 tab 11/21/21 Allergies Allergy/AdvReac Type Severity Reaction Status Date / Time No Known Allergies Allergy Verified 08/23/21 09:26 Review of Systems Review of Systems Constitutional : No Weight loss, No Fever, No Chills, No Fatigue, No Malaise ENT/Mouth : No sore throat, No Rhinorrhea Eyes: No Eye Pain, No Swelling, No Redness Cardiovascular : No Chest Pain, No SOB, No Dyspnea on Exertion, No Orthopnea, No Edema, No Palpitations Respiratory : No Cough, No Sputum, No Wheezing Gastrointestinal : No Nausea, No Vomiting, No Diarrhea, No Constipation, + abdominal Pain, No Hematochezia, No Melena Genitourinary : No Dysuria, No Urinary Frequency, No Hematuria, Musculoskeletal : + joint pain, No Myalgias, No Joint Swelling Skin : No Skin Lesions, No rash Neuro : No Weakness, No Numbness, No Dizziness, No Headache Psych : No Anxiety/Panic, No Depression All other systems reviewed and are negative Yes all other systems are reviewed and are negative [facility] Past Medical History Attestation statement: The following information was validated with the patient. Source: old records reviewed and nursing notes reviewed Medical History Allergic rhinitis Cervical myofascial strain Contusion of left chest wall Gallbladder polyp Hepatitis B core antibody positive Hydrocele Insomnia Left-sided headache Obstructive sleep apnea Vitamin D deficiency Surgical History History of hydrocelectomy History of surgery Thoracolumbar back pain Family History Family History Father Hypertension Mother Hypertension Maternal Aunt Past heart attack Sister Brain aneurysm Social History Social History Housing: House Alcohol intake: never Patient Tobacco Use Status: Never used Tobacco e-Cigarette/Vaping Use: Never Used Second Hand Smoke Exposure: Yes Advance Directives: No service: No Current occupational status: unemployed Cognitive needs: No Hearing needs: No Vision needs: No Physical Exam ED Vital Signs: Vital Signs - 24 hr 11/21/21 19:42 11/21/21 23:32 11/22/21 01:31 Temperature 99.1 F 98.2 F 99.9 F Pulse Rate 20 L 87 86 Respiratory Rate 18 19 18 Blood Pressure 147/88 H 155/103 H 152/107 H Pulse Oximetry 98 99 99 BMI result Body Mass Index 26.4 Vital signs stable Appearance: Alert.? Oriented X3.? No acute distress.? Head: Normocephalic, atraumatic, no step-offs or deformities Eyes: Pupils equal, round and reactive to light.? ENT: Pharynx normal.? Neck: Normal inspection.? Neck supple.? CVS: Normal heart rate and rhythm.? Pulses normal.? Respiratory: No respiratory distress.? Breath sounds normal.? Abdomen: Soft and nontender.? Skin: Skin warm and dry.? Normal skin color.? Normal skin turgor.? Extremities: No lower extremity edema.? No calf ttp. 5/5 strength to bilateral upper and lower extremities Back: + midline tenderness to cervical, thoracic and lumbar region, no C-spine tenderness, full range of motion, no CVA tenderness bilaterally + large cervical scar from this cervical to thoracic region. No evidence signs of overlying infection. Rectal exam: normal sphincter tone and anal wink. Neuro: Oriented X 3.? No motor deficit.? No sensory deficit. CN 2-12 intact Upper and lower extremities with 2+ reflexes equal bilateral, no saddle paresthesias, neuro exam nonfocal Course Reevaluation(s) Reevaluation #1: Will give patient a Fleet enema for constipation. No saddle paresthesias 2+ patellar reflexes equal bilateral , normal sphincter tone (checked with male RN at bedside.) unlikely that this is cauda equina. Patient likely constipated secondary to narcotic use. Patient's CBC appears to be at his baseline. Chemistry with no acute electrolyte abnormalities. Lipase within normal limits. Urine clear . COVID negative. Time: 00:07 Reevaluation #2: I spoke to the hospitalist about admitting this patient, will wait for MR of the cervical, thoracic and lumbar spine to admit this patient as patient may need neuro surgery of any of these are abnormal which would require transfer to a tertiary center. I have ordered the MRIs for the morning. Will focus on pain control at this time. Time: 01:29 Reevaluation #3: Sign out given to . Time: 02:17 MDM - Abdominal Pain MDM Narrative Medical decision making narrative: 193 This is a 46-year-old male presenting to the emergency department for the 2nd in a row for evaluation of severe back pain, and lower back pain radiating to the right lower quadrant x2 days. Patient describes this pain is intolerable. Upon physical examination patient has a large surgical scar from the cervical to the thoracic region, pain with palpation to midline from cervical to lumbar area. No overlying skin changes concerning for infection. He does have surgical talha in place. No drainable abscess or evidence signs of infection. No saddle paresthesias, normal reflexes upper and lower extremities. No focal neuro deficits. Patient has normal rectal tone. Based off patient history and physical examination should rule out postoperative complications, infection, epidural abscess. History and physical examination not consistent with cauda equina. Plan at this time is labs, imaging, CT of the abdomen pelvis to look at the lower back. I will order MRIs for the morning. Patient will receive pain medication as he is reporting 10/10 pain. I did not order inflammatory markers on this patient as he is postop and these will likely be elevated due to postoperative state. Medical Records Attestation: I reviewed the patient's medical records. Lab Data Attestation: I reviewed the patient's lab results. Result diagrams: 11/21/21 20:05 11/21/21 20:05 Labs: Lab Results 11/21/21 11/21/21 11/21/21 Range/Units 20:05 20:05 20:05 WBC 8.3 (4.8-10.8) X10*3/uL RBC 4.16 L (4.60-5.80) X10*6/uL Hgb 10.8 L (14.0-18.0) g/dl Hct 33.5 L (42.0-52.0) % MCV 80.5 (80.0-98.0) fL MCH 26.0 L (27.0-33.0) pg MCHC 32.2 (31.0-36.0) g/dl RDW 14.3 (11.0-16.0) % Plt Count 395 (160-400) X10*3/uL MPV 9.8 (9.4-12.4) fL Immature Gran % (Auto) 0.5 H (0.0-0.4) % Neut % (Auto) 69.4 (45-73) % Lymph % (Auto) 18.6 L (20-40) % [place] % (Auto) 8.6 (2-11) % Eos % (Auto) 2.3 (0-4) % Baso % (Auto) 0.6 (0-2) % Lymph # (Auto) 1.5 (1.2-4.9) X10*3/uL [place] # (Auto) 0.7 (0.1-1.2) X10*3/uL Eos # (Auto) 0.2 (0.0-0.4) X10*3/uL Baso # (Auto) 0.1 (0.0-0.2) X10*3/uL Abs Immat Gran (auto) 0.04 H (0.00-0.03) X10*3/uL Absolute Neuts (auto) 5.8 (2.0-8.3) x10*3/uL Absolute Nucleated RBC 0.000 (0.0-0.012) X10*3/uL Nucleated RBC % (auto) 0.0 (0.0-0.2) /100WBC Sodium 138 (135-145) mmol/L Potassium 3.9 (3.3-5.1) mmol/L Chloride 98 (96-108) mmol/L Carbon Dioxide 30 H (22-29) mmol/L Anion Gap 14 (12-20) BUN 10 (9-16) mg/dL Creatinine 0.92 (0.5-1.4) mg/dL Estim Creat Clear Calc 91.8 Estimated GFR > 60 Random Glucose 94 (60-115) mg/dL Calcium 9.7 (8.4-10.2) mg/dL Magnesium 2.1 (1.6-2.6) mg/dL Total Bilirubin 0.5 (0.0-1.0) mg/dL AST 22 (5-37) U/L ALT 23 (0-40) U/L Alkaline Phosphatase 77 (39-117) U/L Total Protein 8.0 D (6.5-8.0) g/dL Albumin 4.1 (3.5-5.0) g/dL Lipase 13 (8-78) U/L Urine Color Urine Appearance Urine pH (5.0-8.0) Ur Specific [place] (1.005-1.025) Urine Protein (NEG-TRACE) MG/DL Urine Glucose (UA) (NEG) MG/DL Urine Ketones (NEG) MG/DL Urine Blood (NEG) Urine Nitrite (NEG) Ur Leukocyte Esterase (NEG) COVID-19 (OSIRIS) Negative (Negative) COVID-19 Clin Com See Note Influenza Type A (GILBERT) (Negative) Influenza Type B (GILBERT) (Negative) Influenza A & B Note 11/21/21 11/21/21 Range/Units 20:15 23:39 WBC (4.8-10.8) X10*3/uL RBC (4.60-5.80) X10*6/uL Hgb (14.0-18.0) g/dl Hct (42.0-52.0) % MCV (80.0-98.0) fL MCH (27.0-33.0) pg MCHC (31.0-36.0) g/dl RDW (11.0-16.0) % Plt Count (160-400) X10*3/uL MPV (9.4-12.4) fL Immature Gran % (Auto) (0.0-0.4) % Neut % (Auto) (45-73) % Lymph % (Auto) (20-40) % [place] % (Auto) (2-11) % Eos % (Auto) (0-4) % Baso % (Auto) (0-2) % Lymph # (Auto) (1.2-4.9) X10*3/uL [place] # (Auto) (0.1-1.2) X10*3/uL Eos # (Auto) (0.0-0.4) X10*3/uL Baso # (Auto) (0.0-0.2) X10*3/uL Abs Immat Gran (auto) (0.00-0.03) X10*3/uL Absolute Neuts (auto) (2.0-8.3) x10*3/uL Absolute Nucleated RBC (0.0-0.012) X10*3/uL Nucleated RBC % (auto) (0.0-0.2) /100WBC Sodium (135-145) mmol/L Potassium (3.3-5.1) mmol/L Chloride (96-108) mmol/L Carbon Dioxide (22-29) mmol/L Anion Gap (12-20) BUN (9-16) mg/dL Creatinine (0.5-1.4) mg/dL Estim Creat Clear Calc Estimated GFR Random Glucose (60-115) mg/dL Calcium (8.4-10.2) mg/dL Magnesium (1.6-2.6) mg/dL Total Bilirubin (0.0-1.0) mg/dL AST (5-37) U/L ALT (0-40) U/L Alkaline Phosphatase (39-117) U/L Total Protein (6.5-8.0) g/dL Albumin (3.5-5.0) g/dL Lipase (8-78) U/L Urine Color STRAW Urine Appearance CLEAR Urine pH 6.5 (5.0-8.0) Ur Specific [place] <= 1.005 (1.005-1.025) Urine Protein NEG (NEG-TRACE) MG/DL Urine Glucose (UA) NEG (NEG) MG/DL Urine Ketones NEG (NEG) MG/DL Urine Blood NEG (NEG) Urine Nitrite NEG (NEG) Ur Leukocyte Esterase NEG (NEG) COVID-19 (OSIRIS) (Negative) COVID-19 Clin Com Influenza Type A (GILBERT) Negative (Negative) Influenza Type B (GILBERT) Negative (Negative) Influenza A & B Note See Note Critical Care Time Critical Care Time Critical Care Time: No Discharge Plan Discharge Clinical Impression: Cervical spine pain, Thoracic spine pain, Lumbar spine pain, Abdominal pain Patient Disposition: Still a Patient Prescriptions: No Action lidocaine 5 % adhesive patch,medicated 2 patch topical DAILY 0RF oxycodone 10 mg tablet,oral only,ext.rel.12 hr PO 0RF senna 17 mg 0RF gabapentin 300 mg 0RF quetiapine 50 mg tablet 50 mg PO BEDTIME 90 Days Qty: 90 0RF (DME) CPAP Machine/Device Device See Rx Instructions .Route Qty: 1 0RF Rx Instructions: As directed auto PAP 4-16 cm H20 himidified air lisinopril 40 mg tablet 40 mg PO DAILY Qty: 90 1RF amlodipine 10 mg tablet 10 mg PO DAILY 90 Days Qty: 90 1RF ibuprofen 800 mg tablet 800 mg PO Q8H PRN (Reason: pain (scale score 7-10)) Qty: 30 0RF oxycodone 5 mg tablet 5 mg PO TID PRN (Reason: pain) Qty: 21 0RF gabapentin 300 mg capsule 300 mg PO BEDTIME Qty: 15 0RF cyclobenzaprine 5 mg tablet 5 mg PO BEDTIME Qty: 15 0RF
[2021-11-21 19:40] VITALS: BP 130/92; PULSE 106; O2SAT 95
[2021-11-21 19:42] VITALS: BP 147/88; PULSE 20; RESP 18; TEMP 37.3; O2SAT 98; BMI 26.4
[2021-11-21 20:21] LABS: MANUAL DIFF FLAG NO
[2021-11-21 20:22] LABS: Appearance Urine CLEAR; Color Urine STRAW; Glucose Urine UA NEG (NEG); Leukocyte Esterase Urine NEG (NEG); Nitrite Urine NEG (NEG); PH 6.5 (5.0-8.0); Specific Gravity - Urine <= 1.005 (1.005-1.025); Urine Blood NEG (NEG); Urine Ketones NEG (NEG); Urine Protein NEG (NEG-TRACE)
[2021-11-21 20:22] LABS: Basophils Absolute Auto 0.1 X10*3/uL (0.0-0.2); Basophils Percent Auto 0.6 % (0-2); Eosinophils Absolute Auto 0.2 X10*3/uL (0.0-0.4); Eosinophils Percent Auto 2.3 % (0-4); Hematocrit 33.5 % (42.0-52.0); Hemoglobin 10.8 g/dl (14.0-18.0); Imm Gran Abs Auto 0.04 X10*3/uL (0.00-0.03); Imm Gran Pct Auto 0.5 % (0.0-0.4); Lymphocytes Absolute Auto 1.5 X10*3/uL (1.2-4.9); Lymphocytes Percent Auto 18.6 % (20-40); Mean Corpuscular HGB Conc 32.2 g/dl (31.0-36.0); Mean Corpuscular Volume 80.5 fL (80.0-98.0); Mean Platelet Volume 9.8 fL (9.4-12.4); Monocytes Absolute Auto 0.7 X10*3/uL (0.1-1.2); Monocytes Percent Auto 8.6 % (2-11); Neutrophils Absolute Auto 5.8 x10*3/uL (2.0-8.3); Neutrophils Percent Auto 69.4 % (45-73); Platelet Count 395 X10*3/uL (160-400); Red Blood Count 4.16 X10*6/uL (4.60-5.80); Red Cell Distribution Width 14.3 % (11.0-16.0); White Blood Count 8.3 X10*3/uL (4.8-10.8)
[2021-11-21] MEDS: Morphine Sulfate 4 MG/ML CARTRIDGE IVPUSH (20:32)
[2021-11-21 20:36] LABS: COVID-19 Test Negative (Negative); IDNOW Serial# 55D5AD1C
[2021-11-21 20:40] LABS: Alanine Aminotransferase 23 U/L (0-40); Albumin Level 4.1 g/dL (3.5-5.0); Alkaline Phosphatase 77 U/L (39-117); Anion Gap 14 (12-20); Aspartate Amino Transferase 22 U/L (5-37); Bilirubin Total 0.5 mg/dL (0.0-1.0); Blood Urea Nitrogen 10 mg/dL (9-16); Calcium 9.7 mg/dL (8.4-10.2); Carbon Dioxide 30 mmol/L (22-29); Chloride 98 mmol/L (96-108); Creatinine Clr Calc Pharmacy 91.8; Estimated Glomerular Filt Rate > 60; Glucose Random 94 mg/dL (60-115); Lipase 13 U/L (8-78); Magnesium 2.1 mg/dL (1.6-2.6); Potassium 3.9 mmol/L (3.3-5.1); Sodium 138 mmol/L (135-145)
[2021-11-21] MEDS: iohexoL 350 MG/ML 100 ML INFUS..BTL IV (21:28)
[2021-11-21 23:32] VITALS: BP 155/103; PULSE 87; RESP 19; TEMP 36.8; O2SAT 99
[2021-11-22 00:05] LABS: IDNOW Serial# 08D9AD1C; Influenza A Negative (Negative); Influenza B2 Negative (Negative)
[2021-11-22] MEDS: Morphine Sulfate 4 MG/ML CARTRIDGE IVPUSH (00:11)
[2021-11-22 01:31] VITALS: BP 152/107; PULSE 86; RESP 18; TEMP 37.7; O2SAT 99
[2021-11-22] MEDS: HYDROmorphone HCl 1 MG/ML SYRINGE IVPUSH ×2 (01:32→12:35)
[2021-11-22 05:23] VITALS: BP 150/107; PULSE 92; RESP 15; O2SAT 97
--- NOTE | 2021-11-22 07:15 | PC.NURSE ---
Pt A&Ox4, LCA, pain to back 01/29 at this time, urinated 300cc clear yellow urine, asking if he can eat as he hasn't eaten since yesterday morning, would like something for pain, but also concerned about his constipation. Call espitia within reach. Will continue to monitor.
[2021-11-22 08:00] VITALS: BP 131/88; PULSE 90; RESP 17; O2SAT 96
--- NOTE | 2021-11-22 13:03 | PC.NURSE ---
Per , pt t o have talha removed, here spoke to Surgeon in [place] yesterday. Dr Copeland made aware, pt to CT scan at tis time.
--- NOTE | 2021-11-22 18:40 | PC.NURSE ---
Pt and updated with POC regarding pt remaining for rehab placement, both in agreement at this time. Call espitia within reach. Will continue to monitor.
[2021-11-22 19:22] VITALS: BP 152/100; PULSE 102; RESP 16; TEMP 37.1; O2SAT 100
--- NOTE | 2021-11-22 20:35 | MHC.CM.ED ---
CM met with patient at the request of Awais DIMAS. Pt had back surgery in [place] on 11/09/21, to remove hardware placed for scolosis. Pt states he left there with instructions to F/U with his primary care. Pt has talha in. states she asked about physical therapy in [place] and she was told he did not need PT. Pt came to the ED with severe pain. Was seen at primary care and was told to come to the ED. Pt and are hesitant to have PT. wants tahla removed. CM spoke with JUDIE regarding conversation with pt and . Pt will be encouraged to f/u with PCP. Pt is able to ambulate to bathroom, slowly, with steady gait. Pt c/o pain with movement. states surgeon in [place] told her he had to walk. CM expects provider will d/c patient home with instructions to F/U with primary care.
--- NOTE | 2021-11-22 21:02 | MHC.CM.ED ---
Awais DIMAS spoke with patient and his . Options included pt evaluation with possible rehab or d/c home with follow up with pcp. Pt and are considering options. CM to follow for d/c needs.
--- NOTE | 2021-11-22 21:20 | PHA.MEDREC ---
Pharmacy Consult ? Medication Reconciliation Pharmacy has completed the medication reconciliation. Pt states that he does not take seroquel or flexeril, was also unsure if he was taking toprol but confirmed taking norvasc and lisinopril
--- NOTE | 2021-11-22 22:41 | MHC.CM.ED ---
Pt is agreeable to board overnight, with PT evaluation in the morning. Pt tells CM that he does not want to stay at rehab. Explained that [facility]/Acute rehab are in facilities and that most people stay for 1-2 weeks. Pt states he wants to come and go. States he can get a ride. No referrals placed at this time, as pt is unsure if he will accept a rehab bed if offered. CM to follow for d/c needs.
[2021-11-22 23:16] VITALS: BP 150/108; PULSE 92; RESP 16; O2SAT 98
[2021-11-22] MEDS: amLODIPine Besylate 10 MG TABLET PO (23:45)
== END 2021-11-23 00:02 | disposition home or self-care (01) ==
PROVIDERS: Physician Assistant; Emergency Provider Internal Medicine
DX: M54.50 Low back pain, unspecified (principal); M54.2 Cervicalgia; M54.6 Pain in thoracic spine; R10.31 Right lower quadrant pain; F41.9 Anxiety disorder, unspecified; I10 Essential (primary) hypertension; Z20.822 Contact with and (suspected) exposure to COVID-19; Z79.899 Other long term (current) drug therapy
CPT/HCPCS: 36415; 72157; 72158; 74177; 80053; 81003; 83690; 83735; 85025; 87502; 87635; 96374; 96375; 96376; 99284; 99285; A9585; J1170; J2270; Q9967

== ENCOUNTER → 2021-12-14 12:49 | Outpatient (REF) | payer BC, MEDICARE, SELFPAY | LOC: HO.SL 12:49 | PROVIDERS: PCP Internal Medicine; Visit Provider Internal Medicine | DX: G47.33 Obstructive sleep apnea (adult) (pediatric) (principal) | CPT/HCPCS: 95806 ==

== ENCOUNTER 2022-01-11 19:46 | Emergency (ER) | payer BC, MEDICARE, SELFPAY ==
--- NOTE | ~2022-01-11 | XR_ITS ---
Examination: XR lumbar spine 2-3V, XR thoracic spine 2V Indication: surgery in october, back pain Comparison: Prior studies including the 05/18/2021 exam Technique: Frontal and lateral views of the thoracic spine and frontal and lateral views of the lumbar spine were obtained with patient standing. Findings: There is a significant convex right thoracic scoliotic curve noted with a associated convex left lumbar curve. I do not appreciate any acute fracture or spondylolisthesis in this setting. No acute bony destructive lesions. Paraspinal soft tissues unremarkable. Associated rib deformities with the degree of scoliosis. XR/XR thoracic spine 2V Impression: Scoliotic curve of the spine again identified. The previously seen thoracolumbar spinal hardware has been removed since the 2020 study.
--- NOTE | ~2022-01-11 | XR_ITS ---
Examination: XR lumbar spine 2-3V, XR thoracic spine 2V Indication: surgery in october, back pain Comparison: Prior studies including the 05/18/2021 exam Technique: Frontal and lateral views of the thoracic spine and frontal and lateral views of the lumbar spine were obtained with patient standing. Findings: There is a significant convex right thoracic scoliotic curve noted with a associated convex left lumbar curve. I do not appreciate any acute fracture or spondylolisthesis in this setting. No acute bony destructive lesions. Paraspinal soft tissues unremarkable. Associated rib deformities with the degree of scoliosis. XR/XR lumbar spine 2-3V Impression: Scoliotic curve of the spine again identified. The previously seen thoracolumbar spinal hardware has been removed since the 2020 study.
[2022-01-11 19:48] VITALS: BP 136/81; PULSE 80; RESP 20; TEMP 36.7; O2SAT 97; BMI 24.5
[2022-01-11 20:23] LABS: MANUAL DIFF FLAG NO
[2022-01-11 20:25] LABS: Basophils Absolute Auto 0.1 X10*3/uL (0.0-0.2); Basophils Percent Auto 1.1 % (0-2); Eosinophils Absolute Auto 0.2 X10*3/uL (0.0-0.4); Eosinophils Percent Auto 3.5 % (0-4); Hemoglobin 11.9 g/dl (14.0-18.0); Imm Gran Abs Auto 0.01 X10*3/uL (0.00-0.03); Imm Gran Pct Auto 0.2 % (0.0-0.4); Lymphocytes Absolute Auto 1.9 X10*3/uL (1.2-4.9); Lymphocytes Percent Auto 33.7 % (20-40); Mean Corpuscular HGB Conc 33.1 g/dl (31.0-36.0); Mean Corpuscular Hemoglobin 25.6 pg (27.0-33.0); Mean Corpuscular Volume 77.6 fL (80.0-98.0); Mean Platelet Volume 11.1 fL (9.4-12.4); Monocytes Absolute Auto 0.6 X10*3/uL (0.1-1.2); Neutrophils Absolute Auto 2.9 x10*3/uL (2.0-8.3); Neutrophils Percent Auto 50.5 % (45-73); Platelet Count 271 X10*3/uL (160-400); Red Blood Count 4.64 X10*6/uL (4.60-5.80); Red Cell Distribution Width 14.6 % (11.0-16.0); White Blood Count 5.6 X10*3/uL (4.8-10.8)
[2022-01-11 20:37] LABS: Anion Gap 14 (12-20); Blood Urea Nitrogen 15 mg/dL (9-16); Calcium 9.6 mg/dL (8.4-10.2); Carbon Dioxide 27 mmol/L (22-29); Chloride 103 mmol/L (96-108); Estimated Glomerular Filt Rate > 60; Glucose Random 96 mg/dL (60-115); Potassium 3.5 mmol/L (3.3-5.1); Sodium 140 mmol/L (135-145)
--- NOTE | 2022-01-12 00:13 | ED.GENADULT ---
HPI - General Adult General Chief complaint: General Medical Stated complaint: s/p back surgery 11/09 reddness around incision Time Seen by Provider: 01/12/22 00:13 Source: patient and family ( white) Mode of arrival: ambulatory Limitations: no limitations History of Present Illness HPI narrative: 46-year-old male who presents emergency department for evaluation back pain and dehiscence of his surgical wound. The patient has a history of scoliosis. The patient had the rods removed from his spine on 11/09/2021. He states this surgery was performed since he was continuing to have back pain and the concern was that maybe the rods were contributing to the pain. He states that since the surgery he has had pain along the incision site which has improved. Approximately 1 month postoperatively however the pain got worse and he did have an MRI with and without contrast of his thoracic and lumbar sacral spine which was unremarkable was consistent with postsurgical changes. He states that over the past week his pain along the incision site has gotten progressively worse. He describes the pain is a constant, stabbing, burning pain which is 7/10 at its worst. He has been taking Aleve with no relief his pain. He states that his looked at the wound and noted that the top part of the wound head, part and there was blood draining from the wound. He went to an urgent care clinic today, was evaluated and referred to the emergency department for evaluation. The patient denies numbness or weakness of his extremities. He denies loss of bowel or bladder control. He denied fever chills but he states that he has developed rhinorrhea over the past several days. He denied chest pain, shortness of breath, dyspnea on exertion, nausea, vomiting or diarrhea. MD complaint: Back pain Onset (ago): week(s) (1) Location: back ( along the posterior vertebral surgical wound which extends from the thorax to the lumbar spine.) Radiation: non-radiation Severity: severe Severity scale (1-10): 7 Quality: burning and stabbing Pain Consistency: constant Relieving factors: none Exacerbating factors: none Associated symptoms: other ( Rhinorrhea) Treatments prior to arrival: NSAID ( Aleve without relief) Related Data Home Medications Medication Instructions Recorded Confirmed lidocaine 5 % topical patch 2 patch topical DAILY 11/20/21 11/28/21 sennosides 8.6 mg-docusate sodium 2 tab-cap PO BEDTIME 11/22/21 11/28/21 50 mg tablet (Senna Plus) Previous Rx's Medication Instructions Recorded gabapentin 300 mg capsule 300 mg PO BEDTIME #15 caps 11/21/21 amlodipine 10 mg tablet 10 mg PO DAILY 90 days #90 tabs 11/28/21 lisinopril 40 mg tablet 40 mg PO DAILY #90 tabs 11/28/21 celecoxib 200 mg capsule (Celebrex) 200 mg PO DAILY #30 caps 12/07/21 tizanidine 4 mg capsule 4 mg PO TID PRN muscle spasticity 12/22/21 #30 caps tramadol 50 mg tablet 50 mg PO DAILY #30 tabs 12/22/21 CPAP (CPAP Machine/Device) #1 ea 12/27/21 Allergies Allergy/AdvReac Type Severity Reaction Status Date / Time No Known Allergies Allergy Verified 01/11/22 19:58 Review of Systems Review of Systems: Yes all other systems are reviewed and are negative [facility] Past Medical History [facility] Narrative: past medical history: Hypertension, obstructive sleep apnea, anxiety, hypokalemia, reviewed below. Past surgical history: 11/09/2021 the patient had scoliosis rods removed. Social history: He denies tobacco, alcohol and drug use. Medical History Allergic rhinitis Gallbladder polyp Hepatitis B core antibody positive Hydrocele Vitamin D deficiency Surgical History History of hydrocelectomy History of surgery Family History Family History Father Hypertension Mother Hypertension Maternal Aunt Past heart attack Sister Brain aneurysm Social History Social History Housing: House Alcohol intake: never Patient Tobacco Use Status: Never used Tobacco e-Cigarette/Vaping Use: Never Used Second Hand Smoke Exposure: Yes Advance Directives: No Advance Directives Information Provided: No service: No Current occupational status: unemployed Cognitive needs: No Hearing needs: No Vision needs: No Physical Exam ED Vital Signs: Vital Signs - 24 hr 01/11/22 19:48 01/12/22 00:23 01/12/22 02:44 Temperature 98.1 F 98.7 F 98 F Pulse Rate 80 67 59 Respiratory Rate 20 15 15 Blood Pressure 136/81 137/88 128/94 H Pulse Oximetry 97 99 97 Oxygen Delivery Method Room Air Room Air Room Air 01/12/22 06:28 01/12/22 07:41 Temperature 99 F Pulse Rate 72 63 Respiratory Rate 12 13 Blood Pressure 129/88 145/100 H Pulse Oximetry 98 97 Oxygen Delivery Method Room Air Room Air BMI result Body Mass Index 24.5 Const Other: Awake, alert, male patient, very pleasant and cooperative, answers all questions appropriately. The patient has limited ability to move secondary to his back pain, was unable to turn on his side without assistance secondary to his pain. [facility] Head: Yes normal to inspection, Yes normocephalic and Yes atraumatic Ears: external ears normal General nose exam: Normal external nose present Face and sinus: Yes normal facial exam Mouth: Normal oral and palatal mucosa present Throat: Yes posterior oropharynx normal Eyes General: appearance normal, both eyes and all related structures Pupils: Equal, round and reactive pupils present Neck Neck: Yes normal visual inspection, Yes no lymphadenopathy, Yes trachea midline and Yes supple Chest Chest palpation & inspection: normal inspection of the chest and normal palpation of entire chest wall Resp Effort & Inspection: normal respiratory effort and able to speak in complete sentences Auscultation: clear to auscultation bilaterally Cardio Rate: regular rate Rhythm: regular rhythm Heart sounds: S1 normal heart sound present, S2 normal heart sound present and no murmurs GI Inspection: Yes normal to inspection Palpation (GI): Soft to palpation, nontender and no guarding Auscultation: normal bowel sounds Back/Spine/Pelvis Other: The patient has a surgical wound from his thoracic to lumbar spine along the vertebrae, the anterior portion of the surgical wound has a very small area the his since less than 1 cm, the wound was probed with a culture swab and it appears to be superficial, there was only blood on the swab with no purulent-appearing material. There is no significant erythema or increased warmth around the area of dehiscence or along the surgical scar. The patient does have significant with palpation of his vertebral spine from the thoracic to lumbar region along the surgical wound as well as along the paraspinal muscles these areas. The patient has negative straight leg raise bilaterally. Skin General skin exam: no rashes or lesions noted Neuro Other: Patient is able to move both his upper and lower extremities symmetrically however he does have weakness of his upper extremities compared to his lower extremity. Cranial nerves: Yes CN's II-XII intact bilaterally and Yes Equal, round and reactive pupils present Cognition (Neuro): normal cognition Extrem General: Yes normal to inspection Psych Appearance: grossly normal Speech and movement: Normal speech and movement present Affect: normal affect Attitude: cooperative Thought process: Normal thought process present Thought content: Normal thought content present Course Course Course Narrative: 46-year-old male with a history of scoliosis who had a surgical procedure on 11/09/2021 to remove the scoliosis rods to see if it improves pain. The patient states these had constant pain along the surgical wound since the surgery, it got worse 1 month after the surgery and had a negative MRI of the thoracic and lumbar spine. He states that the pain is gotten worse again over the past week and yesterday he noticed dehiscence along the anterior aspect of the surgical wound. The patient has been taking Aleve with no relief his pain. He has not noticed any weakness in his upper lower extremities, loss of bowel or bladder control. Vital signs were normal. Physical examination did reveal tenderness along the entire length of the surgical scar from the thoracic to lumbar spine as well as the paraspinal muscles in these areas. He does have dehiscence of the anterior aspect of the surgical wound which I probed with a culture swab, the wound appears to be superficial and there was only blood on the swab with no purulent material. He does have upper extremity weakness compared to the lower extremities on Neurologic examination otherwise exam is unremarkable. I am concerned that the patient may have a paraspinal abscess or postoperative hematoma as the cause of his pain. The wound to his since appears to be superficial in a effective this time. Laboratory evaluation including CBC, CMP, ESR, CRP and blood cultures will be obtained. Patient will be treated with morphine 4 mg IV and Zofran 4 mg IV. I ordered normal saline at 125 cc an hour. Patient will also receive ceftriaxone 1 g IV. The patient will be kept in the emergency department on physician observation for pain management until we can obtain an MRI with and without contrast of his thoracic and cervical spine when MRIs available later this morning. 0113: Start physician observation: The patient was placed on physician observation for pain management until we can obtain an MRI later this morning. The patient's examination is unchanged from his baseline above. 0808: Physician observation continued: The patient is still waiting for his MRI of his thoracic and lumbar spine. Patient states his pain is coming back. He did get relief initially with morphine. The patient was ordered to get a 2nd dose of morphine 4 mg IV. The patient's examination is unchanged. At the end of my shift, the patient's care was turned over to my colleague, Dr. Svetlana Brooks. 0853: At this time, we cannot perform an MRI on the patient and I did discuss this with the radiologist. He recommended that the patient get a CT scan of the thoracic spine with and without contrast. I did discuss this with the patient. The patient states that he does not want any imaging study any just wants to go home. He states that he will follow up with his primary care doctor. Given the fact that the patient's inflammatory markers (WBC, CRP and ESR) are normal, I think that a paraspinal abscess is less likely therefore the patient will be discharged home. He was advised return emergency department however he developed worsening pain or any symptoms that were concerning to him. Medical Decision Making Lab Data Result diagrams: 01/11/22 20:02 01/11/22 20:02 Labs: Lab Results 01/11/22 01/11/22 01/12/22 Range/Units 20:02 20:02 01:23 WBC 5.6 (4.8-10.8) X10*3/uL RBC 4.64 (4.60-5.80) X10*6/uL Hgb 11.9 L (14.0-18.0) g/dl Hct 36.0 L (42.0-52.0) % MCV 77.6 L (80.0-98.0) fL MCH 25.6 L (27.0-33.0) pg MCHC 33.1 (31.0-36.0) g/dl RDW 14.6 (11.0-16.0) % Plt Count 271 D (160-400) X10*3/uL MPV 11.1 (9.4-12.4) fL Immature Gran % (Auto) 0.2 (0.0-0.4) % Neut % (Auto) 50.5 (45-73) % Lymph % (Auto) 33.7 (20-40) % Mercer % (Auto) 11.0 (2-11) % Eos % (Auto) 3.5 (0-4) % Baso % (Auto) 1.1 (0-2) % Lymph # (Auto) 1.9 (1.2-4.9) X10*3/uL Mercer # (Auto) 0.6 (0.1-1.2) X10*3/uL Eos # (Auto) 0.2 (0.0-0.4) X10*3/uL Baso # (Auto) 0.1 (0.0-0.2) X10*3/uL Abs Immat Gran (auto) 0.01 (0.00-0.03) X10*3/uL Absolute Neuts (auto) 2.9 (2.0-8.3) x10*3/uL Absolute Nucleated RBC 0.000 (0.0-0.012) X10*3/uL Nucleated RBC % (auto) 0.0 (0.0-0.2) /100WBC ESR 6 (0-15) MM/HR Sodium 140 (135-145) mmol/L Potassium 3.5 (3.3-5.1) mmol/L Chloride 103 (96-108) mmol/L Carbon Dioxide 27 (22-29) mmol/L Anion Gap 14 (12-20) BUN 15 (9-16) mg/dL Creatinine 1.04 (0.5-1.4) mg/dL Estim Creat Clear Calc 84.0 Estimated GFR > 60 Random Glucose 96 (60-115) mg/dL Calcium 9.6 (8.4-10.2) mg/dL C-Reactive Protein (< or = 0.50) mg/dL 01/12/ Range/Units 01:23 WBC (4.8-10.8) X10*3/uL RBC (4.60-5.80) X10*6/uL Hgb (14.0-18.0) g/dl Hct (42.0-52.0) % MCV (80.0-98.0) fL MCH (27.0-33.0) pg MCHC (31.0-36.0) g/dl RDW (11.0-16.0) % Plt Count (160-400) X10*3/uL MPV (9.4-12.4) fL Immature Gran % (Auto) (0.0-0.4) % Neut % (Auto) (45-73) % Lymph % (Auto) (20-40) % Mercer % (Auto) (2-11) % Eos % (Auto) (0-4) % Baso % (Auto) (0-2) % Lymph # (Auto) (1.2-4.9) X10*3/uL Mercer # (Auto) (0.1-1.2) X10*3/uL Eos # (Auto) (0.0-0.4) X10*3/uL Baso # (Auto) (0.0-0.2) X10*3/uL Abs Immat Gran (auto) (0.00-0.03) X10*3/uL Absolute Neuts (auto) (2.0-8.3) x10*3/uL Absolute Nucleated RBC (0.0-0.012) X10*3/uL Nucleated RBC % (auto) (0.0-0.2) /100WBC ESR (0-15) MM/HR Sodium (135-145) mmol/L Potassium (3.3-5.1) mmol/L Chloride (96-108) mmol/L Carbon Dioxide (22-29) mmol/L Anion Gap (12-20) BUN (9-16) mg/dL Creatinine (0.5-1.4) mg/dL Estim Creat Clear Calc Estimated GFR Random Glucose (60-115) mg/dL Calcium (8.4-10.2) mg/dL C-Reactive Protein 0.66 H (< or = 0.50) mg/dL Discharge Plan Discharge Clinical Impression: Acute thoracic back pain, Acute lumbar back pain Patient Disposition: Home, Self-Care Additional Instructions: Your blood work was normal. Your markers of inflammation/infection were all normal (white blood cell count, sedimentation rate and C reactive protein) which is reassuring. We were not able to get an MRI on you today, but we could get a CT scan of your thoracic spine with and without contrast to look for possible infection is the cause of your pain. However, you do not want to stay for this test you for requested to go home which I think is okay at this point. If your pain gets worse, if you developed numbness or weakness, if you developed cross of bowel or bladder control, if you developed fever, chills or any other symptoms that are concerning to then I want you to return to emergency department for re-evaluation. Take ibuprofen 200 mg pills, 2 pills every 6 hours as needed for pain. Take Tylenol (acetaminophen) 500 mg pills, 2 pills every 4 to 6 hours as needed for pain. Follow-up with your doctor in 2 days. Please return to the emergency department if your symptoms get worse or if you develop any symptoms that are concerning to you. Prescriptions: No Action celecoxib [Celebrex] 200 mg capsule 200 mg PO DAILY Qty: 30 0RF tramadol 50 mg tablet 50 mg PO DAILY Qty: 30 0RF tizanidine 4 mg capsule 4 mg PO TID PRN (Reason: muscle spasticity) Qty: 30 0RF (DME) CPAP Machine/Device Device See Rx Instructions .Route Qty: 1 0RF Rx Instructions: As directed auto PAP 6-16 cm H20 himidified air lidocaine 5 % adhesive patch,medicated 2 patch topical DAILY sennosides-docusate sodium [Senna Plus] 8.6-50 mg Tablet 2 tab-cap PO BEDTIME lisinopril 40 mg tablet 40 mg PO DAILY Qty: 90 1RF amlodipine 10 mg tablet 10 mg PO DAILY 90 Days Qty: 90 1RF gabapentin 300 mg capsule 300 mg PO BEDTIME Qty: 15 0RF
[2022-01-12 00:23] VITALS: BP 137/88; PULSE 67; RESP 15; TEMP 37.1; O2SAT 99
[2022-01-12] MEDS: 0.9 % Sodium Chloride 1,000 ML 125 ML IVCONT (01:33)
[2022-01-12] MEDS: Bacitracin Oint 0.9 GM PACKET 1 APPL TOPICAL (01:34)
[2022-01-12] MEDS: cefTRIAXone sodium 1 GM in 0.9 % Sodium Chloride 50 ML IV (01:34)
[2022-01-12] MEDS: ondansetron HCL 4 MG/2 ML VIAL IVPUSH (01:36)
[2022-01-12] MEDS: Morphine Sulfate 4 MG/ML CARTRIDGE IVPUSH (01:36)
[2022-01-12 01:47] LABS: C Reactive Protein 0.66 mg/dL (< or = 0.50)
[2022-01-12 02:11] LABS: Erythrocyte Sedimentation Rate 6 MM/HR (0-15)
[2022-01-12 02:44] VITALS: BP 128/94; PULSE 59; RESP 15; TEMP 36.6; O2SAT 97
[2022-01-12 06:28] VITALS: BP 129/88; PULSE 72; RESP 12; TEMP 37.2; O2SAT 98
--- NOTE | 2022-01-12 07:07 | PC.NURSE ---
Report given to JAMES Brown
[2022-01-12 07:41] VITALS: BP 145/100; PULSE 63; RESP 13; O2SAT 97
[2022-01-12 09:44] VITALS: BP 143/97; PULSE 70; RESP 18; O2SAT 98
--- NOTE | 2022-01-12 10:05 | PC.NURSE ---
pt alert and oriented, pt reports that he changed his mind and he would like to stay for further testing on his back pt had a back surgery done in [place] two months ago, reports that the incision is starting to open up, this rn does not visualize any opening in the incision at this time, incisions appears to be healing well, no visible redness/swelling/draining
[2022-01-12 11:05] VITALS: BP 149/96; PULSE 84; RESP 20; O2SAT 99
== END 2022-01-12 12:41 | disposition home or self-care (01) ==
PROVIDERS: Emergency Provider Emergency Medicine Emergency Medical Services; PCP Internal Medicine
DX: M54.50 Low back pain, unspecified (principal); M54.6 Pain in thoracic spine; G89.29 Other chronic pain; Z79.899 Other long term (current) drug therapy
CPT/HCPCS: 36415; 72070; 72100; 80048; 85025; 85652; 86140; 87040; 87071; 87205; 96361; 96374; 96375; 99284; J0696; J2270; J2405

== ENCOUNTER 2022-03-10 08:30 | Outpatient (REF) | payer BC, MEDICARE, SELFPAY ==
--- NOTE | ~2022-03-10 | XR_ITS ---
EXAMINATION: XR CHEST CLINICAL INFORMATION: Low back pain. COMPARISON: Chest radiograph 09/17/2019. TECHNIQUE: 2 views of the chest were obtained. FINDINGS: Thoracolumbar scoliosis again noted. Stable appearance of the cardiomediastinal silhouette. No focal airspace opacity, pleural effusion or pneumothorax. No acute osseous abnormalities. The visualized upper abdomen is within normal limits. XR/XR chest 2V IMPRESSION: No acute cardiopulmonary findings. In the setting of back pain, correlation with radiographic or cross-sectional images of the spine is recommended if clinically deemed appropriate.
== END 2022-03-10 08:31 | disposition home or self-care (01) ==
LOC: HO.XRAY 08:30
PROVIDERS: PCP Internal Medicine; Visit Provider Internal Medicine
DX: M54.50 Low back pain, unspecified (principal); M54.6 Pain in thoracic spine
CPT/HCPCS: 71046

== ENCOUNTER 2022-03-24 09:51 | Emergency (ER) | payer MEDICARE, MEDICAID, SELFPAY ==
--- NOTE | ~2022-03-24 | CT_ITS ---
EXAMINATION: CT ABDOMEN AND PELVIS WITHOUT CONTRAST CLINICAL INFORMATION: Constipation, obstipation, abdominal pain. COMPARISON: CT scans dating between November 21, 2021 and March 11, 2010. TECHNIQUE: Multidetector volumetric imaging was performed from the superior aspect of the liver through the pubic symphysis. Sagittal and coronal reformatted images were obtained on the technologist's workstation. This CT examination was performed using dose optimization techniques as appropriate, variously including the following: *Automated exposure control *Adjustment of mA and/or kV according to patient size (this includes techniques or standardized protocols for targeted exams where dose is matched to indication/reason for exam; i.e. extremities or head) *Use of iterative reconstruction technique DLP: 428 mGy-cm FINDINGS: LUNG BASES: The lung bases appear clear, with no evidence of inflammation or nodules. LIVER, GALLBLADDER, AND BILIARY TREE: The liver appears unremarkable in size, shape, and attenuation. No focal hepatic lesion or biliary ductal dilatation is appreciated. Unremarkable appearance of the gallbladder. PANCREAS: Unremarkable SPLEEN: Unremarkable ADRENAL GLANDS: Unremarkable KIDNEYS AND URETERS: Less than 2 cm benign bilateral simple renal cysts for which no further dedicated imaging is indicated. The kidneys otherwise appear unremarkable in size, shape, and attenuation. No hydronephrosis, hydroureter, or calculi seen. BLADDER: Unremarkable GASTROINTESTINAL TRACT: The small and large bowel appear unremarkable. No diverticulosis. Normal-appearing distal ileum and vermiform appendix. Unremarkable stool burden. ABDOMINAL WALL: No significant hernia is appreciated. LYMPH NODES: No evidence of adenopathy by size criteria. VASCULAR: Unremarkable PELVIC VISCERA: Unremarkable OSSEOUS STRUCTURES: S-shaped scoliosis, convex to the left in the lumbar region. CT/CT abdomen pelvis wo IV con IMPRESSION: No acute finding.
[2022-03-24 09:54] VITALS: BP 142/100; PULSE 76; RESP 18; TEMP 36.8; O2SAT 99; BMI 26.6
--- NOTE | 2022-03-24 12:06 | ED.GENADULT ---
HPI - General Adult General Chief complaint: Abdominal Pain Stated complaint: constipated Time Seen by Provider: 03/24/22 09:58 Source: patient and old records reviewed Mode of arrival: ambulatory History of Present Illness HPI narrative: Patient is a 46-year-old male presenting today with complaint of constipation for 2 weeks. Reports long history of constipation that has been worsening in the past few weeks. States he has not passed gas or had a bowel movement in past 2 weeks. Reports still eating his typical diet, denies any nausea or vomiting, denies belching. Reports abdominal pain that has increased in the past week. Was evaluated outpatient by PCP and has tried multiple [id number] bowel regimens including MiraLax, lactulose, suppository, and magnesium citrate with no relief. Does report complicated scoliosis with surgery in December, however states he has not used any pain medications in the past few weeks. Denies fevers, recent weight loss, chest pain, shortness of breath, cough, blood per rectum. Denies any history of abdominal surgeries. Onset (ago): week(s) Location: abdomen Radiation: non-radiation Severity: moderate Pain Consistency: intermittent Relieving factors: none Exacerbating factors: none Associated symptoms: denies other symptoms Treatments prior to arrival: none Related Data Home Medications Medication Instructions Recorded Confirmed lidocaine 5 % topical patch 2 patch topical DAILY 11/20/21 02/23/22 sennosides 8.6 mg-docusate sodium 2 tab-cap PO BEDTIME 11/22/21 02/23/22 50 mg tablet (Senna Plus) Previous Rx's Medication Instructions Recorded gabapentin 300 mg capsule 300 mg PO BEDTIME #15 caps 11/21/21 amlodipine 10 mg tablet 10 mg PO DAILY 90 days #90 tabs 11/28/21 lisinopril 40 mg tablet 40 mg PO DAILY #90 tabs 11/28/21 tizanidine 4 mg capsule 4 mg PO TID PRN muscle spasticity 12/22/21 #30 caps tramadol 50 mg tablet 50 mg PO DAILY #30 tabs 12/22/21 CPAP (CPAP Machine/Device) #1 ea 01/18/22 bacitracin 500 unit/gram topical 1 appl topical Q8H 7 days #14 grams 01/18/22 ointment celecoxib 200 mg capsule (Celebrex) 200 mg PO DAILY #30 caps 02/11/22 fluticasone propionate 50 2 spray intranasal DAILY #16 grams 02/23/22 mcg/actuation nasal spray,suspension (Flonase Allergy Relief) lactulose 20 gram/30 mL oral 20 g (30 mL) PO TID #1,500 mL 02/23/22 solution zolpidem 5 mg tablet (Ambien) 5 mg PO BEDTIME PRN sleep #14 tabs 02/23/22 peg 3350-electrolytes 236 240 ml PO Q10M #4,000 mL 03/24/22 gram-22.74 gram-6.74 gram-5.86 gram solution (Golytely) Allergies Allergy/AdvReac Type Severity Reaction Status Date / Time No Known Allergies Allergy Verified 02/23/22 11:44 Review of Systems Review of Systems: Constitutional: No Fever, No Chills ENT/Mouth: No sore throat, No Rhinorrhea, No Swallowing Difficulty Cardiovascular: No Chest Pain, No SOB, No Orthopnea, No Edema Respiratory: No Cough, No Sputum, No Wheezing, No dyspnea Gastrointestinal: + constipation, +abdominal pain, No Nausea, No Vomiting, No Hematochezia, No Melena Genitourinary: No Dysuria, No Urinary Frequency, No Hematuria Musculoskeletal: No joint pain, No Myalgias Skin: No Skin Lesions, No rash Neuro: No Weakness, No Numbness, No Dizziness, No Headache Psych: No Anxiety/Panic, No Depression Heme/Lymph: No Bruising, No Lymphadenopathy Endocrine: No Polyuria, No Polydipsia PMFSH Past Medical History Medical History Allergic rhinitis Gallbladder polyp Hepatitis B core antibody positive Hydrocele Vitamin D deficiency Surgical History History of hydrocelectomy History of surgery Family History Family History Father Hypertension Mother Hypertension Maternal Aunt Past heart attack Sister Brain aneurysm Social History Social History Housing: House Alcohol intake: never Patient Tobacco Use Status: Never used Tobacco e-Cigarette/Vaping Use: Never Used Second Hand Smoke Exposure: Yes Advance Directives: No Advance Directives Information Provided: No service: No Current occupational status: unemployed Cognitive needs: No Hearing needs: No Vision needs: No Physical Exam ED Vital Signs: Vital Signs - 24 hr 03/24/22 09:54 03/24/22 13:50 Temperature 98.3 F Pulse Rate 76 61 Respiratory Rate 18 14 Blood Pressure 142/100 H 136/100 H Pulse Oximetry 99 99 Oxygen Delivery Method Room Air Room Air BMI result Body Mass Index 26.6 Const Other: Appearance: Alert. Oriented X3. No acute distress. Eyes: Pupils equal, round and reactive to light. ENT: Pharynx normal. Neck: Normal inspection. Neck supple. CVS: Normal heart rate and rhythm. Pulses normal. Respiratory: No respiratory distress. Breath sounds normal. Abdomen: Soft, nondistended, nontender. No guarding, + hyperactive BS x4 Rectal: External exam unremarkable, no external or internal hemmorhoids, no palpable masses, no stool in rectal vault, no BRBPR Skin: Skin warm and dry. Normal skin color. Normal skin turgor. No rashes. Extremities: No lower extremity edema. Neuro: Oriented X 3. No motor deficit. No sensory deficit. Course Course Course Narrative: Patient is a 46-year-old male presenting today with complaint of constipation for 2 weeks. Patient reports no bowel movement or passing gas for 2 weeks, despite maintaining typical diet. On exam, patient in no acute distress, abdomen is soft, non distended, nontender to palpation, with + hyperactive BS x 4. Rectal exam unremarkable, no external or internal hemorrhoids, no fissures, no palpable masses, no stool in rectal vault, no BRBPR. Concern for constipation vs ostipation vs fecal impaction. Less concern for bowel obstruction. potassium noted to be on the lower side at 3.3, 1 time dose of 40 mEq potassium chloride ER ordered with hopes of improving gut motility 1433: CT abd/pelvis IMPRESSION: No acute finding. Will plan to start patient on GoLYTELY bowel prep to help with his constipation. Will refer to GI for further evaluation and treatment. Return precautions were discussed. Patient stable for discharge home with outpatient follow-up and supportive care. Medical Decision Making Lab Data Result diagrams: 03/24/22 12:17 03/24/22 12:17 Labs: Lab Results 03/24/22 03/24/22 Range/Units 12:17 12:17 WBC 5.6 (4.8-10.8) X10*3/uL RBC 4.92 (4.60-5.80) X10*6/uL Hgb 12.3 L (14.0-18.0) g/dl Hct 37.6 L (42.0-52.0) % MCV 76.4 L (80.0-98.0) fL MCH 25.0 L (27.0-33.0) pg MCHC 32.7 (31.0-36.0) g/dl RDW 16.5 H (11.0-16.0) % Plt Count 202 D (160-400) X10*3/uL MPV 9.7 (9.4-12.4) fL Immature Gran % (Auto) 0.2 (0.0-0.4) % Neut % (Auto) 41.6 L (45-73) % Lymph % (Auto) 39.1 (20-40) % [place]et % (Auto) 9.8 (2-11) % Eos % (Auto) 7.5 H (0-4) % Baso % (Auto) 1.8 (0-2) % Lymph # (Auto) 2.2 (1.2-4.9) X10*3/uL [place] # (Auto) 0.6 (0.1-1.2) X10*3/uL Eos # (Auto) 0.4 (0.0-0.4) X10*3/uL Baso # (Auto) 0.1 (0.0-0.2) X10*3/uL Abs Immat Gran (auto) 0.01 (0.00-0.03) X10*3/uL Absolute Neuts (auto) 2.3 (2.0-8.3) x10*3/uL Absolute Nucleated RBC 0.000 (0.0-0.012) X10*3/uL Nucleated RBC % (auto) 0.0 (0.0-0.2) /100WBC Sodium 142 (135-145) mmol/L Potassium 3.3 (3.3-5.1) mmol/L Chloride 101 (96-108) mmol/L Carbon Dioxide 31 H (22-29) mmol/L Anion Gap 13 (12-20) BUN 13 (9-16) mg/dL Creatinine 1.08 (0.5-1.4) mg/dL Estim Creat Clear Calc 78.2 Estimated GFR > 60 Random Glucose 78 (60-115) mg/dL Calcium 9.5 (8.4-10.2) mg/dL Phosphorus 3.8 (2.7-4.5) mg/dL Magnesium 2.1 (1.6-2.6) mg/dL Total Bilirubin 0.4 (0.0-1.0) mg/dL Direct Bilirubin < 0.2 (0.0-0.5) mg/dL AST 15 (5-37) U/L ALT 11 (0-40) U/L Alkaline Phosphatase 80 (39-117) U/L Total Protein 7.6 (6.5-8.0) g/dL Albumin 4.2 (3.5-5.0) g/dL Critical Care Time Critical Care Time Critical Care Time: No Discharge Plan Discharge Clinical Impression: Constipation Patient Disposition: Home, Self-Care Instructions: Constipation (ED) Additional Instructions: You were evaluated today in the emergency department for constipation. Your CT scan showed no signs of bowel obstruction. You were given multiple medications prior to discharge to help you move your bowels. You were also prescribed GoLYTELY to use at home if you are still unable to have a bowel movement. Please follow-up with GI as well as your primary care provider. If you develop new or worsening symptoms call 911 or come back to the ER for further evaluation. Prescriptions: New peg 3350-electrolytes [Golytely] 236-22.74-6.74 -5.86 gram recon soln 240 ml PO Q10M Qty: 4000 0RF Rx Instructions: until fecal effluent is clear No Action tramadol 50 mg tablet 50 mg PO DAILY Qty: 30 0RF tizanidine 4 mg capsule 4 mg PO TID PRN (Reason: muscle spasticity) Qty: 30 0RF celecoxib [Celebrex] 200 mg capsule 200 mg PO DAILY Qty: 30 0RF lidocaine 5 % adhesive patch,medicated 2 patch topical DAILY sennosides-docusate sodium [Senna Plus] 8.6-50 mg Tablet 2 tab-cap PO BEDTIME lisinopril 40 mg tablet 40 mg PO DAILY Qty: 90 1RF amlodipine 10 mg tablet 10 mg PO DAILY 90 Days Qty: 90 1RF gabapentin 300 mg capsule 300 mg PO BEDTIME Qty: 15 0RF bacitracin 500 unit/gram ointment 1 appl topical Q8H 7 Days Qty: 14 0RF (DME) CPAP Machine/Device Device See Rx Instructions .Route Qty: 1 0RF Rx Instructions: As directed auto PAP 6-16 cm H20 himidified air lactulose 20 gram/30 mL solution 20 g PO TID Qty: 1500 2RF zolpidem [Ambien] 5 mg tablet 5 mg PO BEDTIME PRN (Reason: sleep) Qty: 14 0RF fluticasone propionate [Flonase Allergy Relief] 50 mcg/actuation spray,suspension 2 spray intranasal DAILY Qty: 16 2RF Rx Instructions: administer into each nostril Referrals: Ashlee Fernandez MD [Physician] - (Chronic constipation )
[2022-03-24 12:24] LABS: Basophils Absolute Auto 0.1 X10*3/uL (0.0-0.2); Basophils Percent Auto 1.8 % (0-2); Eosinophils Absolute Auto 0.4 X10*3/uL (0.0-0.4); Eosinophils Percent Auto 7.5 % (0-4); Hematocrit 37.6 % (42.0-52.0); Hemoglobin 12.3 g/dl (14.0-18.0); Imm Gran Abs Auto 0.01 X10*3/uL (0.00-0.03); Imm Gran Pct Auto 0.2 % (0.0-0.4); Lymphocytes Absolute Auto 2.2 X10*3/uL (1.2-4.9); Lymphocytes Percent Auto 39.1 % (20-40); MANUAL DIFF FLAG NO; Mean Corpuscular HGB Conc 32.7 g/dl (31.0-36.0); Mean Corpuscular Volume 76.4 fL (80.0-98.0); Mean Platelet Volume 9.7 fL (9.4-12.4); Monocytes Absolute Auto 0.6 X10*3/uL (0.1-1.2); Monocytes Percent Auto 9.8 % (2-11); Neutrophils Absolute Auto 2.3 x10*3/uL (2.0-8.3); Neutrophils Percent Auto 41.6 % (45-73); Platelet Count 202 X10*3/uL (160-400); Red Blood Count 4.92 X10*6/uL (4.60-5.80); Red Cell Distribution Width 16.5 % (11.0-16.0); White Blood Count 5.6 X10*3/uL (4.8-10.8)
[2022-03-24 12:45] LABS: Alanine Aminotransferase 11 U/L (0-40); Albumin Level 4.2 g/dL (3.5-5.0); Alkaline Phosphatase 80 U/L (39-117); Anion Gap 13 (12-20); Aspartate Amino Transferase 15 U/L (5-37); Bilirubin Direct < 0.2 mg/dL (0.0-0.5); Bilirubin Total 0.4 mg/dL (0.0-1.0); Blood Urea Nitrogen 13 mg/dL (9-16); Calcium 9.5 mg/dL (8.4-10.2); Carbon Dioxide 31 mmol/L (22-29); Chloride 101 mmol/L (96-108); Creatinine Clr Calc Pharmacy 78.2; Estimated Glomerular Filt Rate > 60; Glucose Random 78 mg/dL (60-115); Magnesium 2.1 mg/dL (1.6-2.6); Phosphorus 3.8 mg/dL (2.7-4.5); Potassium 3.3 mmol/L (3.3-5.1); Sodium 142 mmol/L (135-145); Total Protein 7.6 g/dL (6.5-8.0)
[2022-03-24] MEDS: Potassium Chloride ER 20 MEQ TAB.ER.PRT 40 MEQ PO (13:48)
[2022-03-24 13:50] VITALS: BP 136/100; PULSE 61; RESP 14; O2SAT 99
[2022-03-24] MEDS: polyethylene glycoL 3350 17 GM POWD.PACK PO (15:12)
[2022-03-24] MEDS: Docusate Sodium 100 MG CAPSULE PO (15:12)
[2022-03-24] MEDS: Lactulose 20 GM/30 ML SOLUTION 30 GM PO (15:12)
== END 2022-03-24 15:17 | disposition home or self-care (01) ==
PROVIDERS: Physician Assistant; Emergency Provider Emergency Medicine; PCP Internal Medicine
DX: K59.00 Constipation, unspecified (principal); R10.9 Unspecified abdominal pain; Z79.899 Other long term (current) drug therapy
CPT/HCPCS: 36415; 74176; 80048; 80076; 83735; 84100; 85025; 99282; 99284

== ENCOUNTER → 2022-05-29 08:05 | Outpatient (BNVA) | payer MEDICARE, MEDICAID, SELFPAY | PROVIDERS: PCP Internal Medicine; Visit Provider Nurse Practitioner Family | DX: G47.33 Obstructive sleep apnea (adult) (pediatric) (principal) | CPT/HCPCS: 99202 ==

== ENCOUNTER 2022-06-05 12:53 | Outpatient (REF) | payer MEDICARE, MEDICAID, SELFPAY ==
[2022-06-05 13:15] LABS: MANUAL DIFF FLAG NO
[2022-06-05 13:41] LABS: Basophils Absolute Auto 0.1 X10*3/uL (0.0-0.2); Basophils Percent Auto 1.1 % (0-2); Eosinophils Absolute Auto 0.2 X10*3/uL (0.0-0.4); Eosinophils Percent Auto 3.3 % (0-4); Hematocrit 37.3 % (42.0-52.0); Hemoglobin 12.1 g/dl (14.0-18.0); Imm Gran Abs Auto 0.01 X10*3/uL (0.00-0.03); Imm Gran Pct Auto 0.2 % (0.0-0.4); Lymphocytes Absolute Auto 1.5 X10*3/uL (1.2-4.9); Lymphocytes Percent Auto 32.7 % (20-40); Mean Corpuscular HGB Conc 32.4 g/dl (31.0-36.0); Mean Corpuscular Hemoglobin 25.1 pg (27.0-33.0); Mean Corpuscular Volume 77.4 fL (80.0-98.0); Mean Platelet Volume 11.1 fL (9.4-12.4); Monocytes Absolute Auto 0.5 X10*3/uL (0.1-1.2); Monocytes Percent Auto 11.1 % (2-11); Neutrophils Absolute Auto 2.3 x10*3/uL (2.0-8.3); Neutrophils Percent Auto 51.6 % (45-73); Platelet Count 219 X10*3/uL (160-400); Red Blood Count 4.82 X10*6/uL (4.60-5.80); Red Cell Distribution Width 16.2 % (11.0-16.0); White Blood Count 4.5 X10*3/uL (4.8-10.8)
[2022-06-05 14:46] LABS: Iron 63 mcg/dL (45-160); Percent Iron Saturation 19 % (15-50); Total Iron Binding Capacity 330 mcg/dL (228-428); Unsaturated Iron Binding 267 ug/dL
[2022-06-05 14:47] LABS: Folate 6.1 ng/mL (> or = 4.0); Vitamin B12 621 pg/mL (200-900)
[2022-06-05 15:00] LABS: Thyroid Stimulating Hormone 0.66 uIU/mL (0.32-4.0)
== END 2022-06-05 12:54 | disposition home or self-care (01) ==
LOC: HO.LAB 12:53
PROVIDERS: PCP Internal Medicine; Visit Provider Physician Assistant
DX: K59.09 Other constipation (principal); D64.9 Anemia, unspecified; Z79.899 Other long term (current) drug therapy
CPT/HCPCS: 36415; 82607; 82746; 83540; 84443; 85025; 99202; 99212

== ENCOUNTER 2022-07-31 09:30 | Outpatient (REF) | payer MEDICARE, MEDICAID, SELFPAY ==
[2022-07-31 09:55] LABS: MANUAL DIFF FLAG NO
[2022-07-31 10:10] LABS: Basophils Percent Auto 0.9 % (0-2); Eosinophils Absolute Auto 0.2 X10*3/uL (0.0-0.4); Eosinophils Percent Auto 4.1 % (0-4); Hematocrit 38.5 % (42.0-52.0); Hemoglobin 12.4 g/dl (14.0-18.0); Imm Gran Abs Auto 0.01 X10*3/uL (0.00-0.03); Imm Gran Pct Auto 0.2 % (0.0-0.4); Immature Retic Fraction 6.7 % (2.3-13.4); Lymphocytes Absolute Auto 1.9 X10*3/uL (1.2-4.9); Lymphocytes Percent Auto 42.1 % (20-40); Mean Corpuscular HGB Conc 32.2 g/dl (31.0-36.0); Mean Corpuscular Volume 77.6 fL (80.0-98.0); Mean Platelet Volume 10.3 fL (9.4-12.4); Monocytes Absolute Auto 0.5 X10*3/uL (0.1-1.2); Monocytes Percent Auto 10.6 % (2-11); Neutrophils Absolute Auto 1.9 x10*3/uL (2.0-8.3); Neutrophils Percent Auto 42.1 % (45-73); Platelet Count 274 X10*3/uL (160-400); Red Blood Count 4.96 X10*6/uL (4.60-5.80); Red Cell Distribution Width 15.7 % (11.0-16.0); Retic HGB Equivalent 30.8 pg (30.0-35.0); White Blood Count 4.4 X10*3/uL (4.8-10.8)
[2022-07-31 10:26] LABS: Appearance Urine Clear; Color Urine Yellow; Glucose Urine UA Negative (Negative); Leukocyte Esterase Urine Negative (Negative); Nitrite Urine Negative (Negative); Specific Gravity - Urine 1.015 (1.005-1.025); Urine Blood Negative (Negative); Urine Ketones Negative (Negative); Urine Protein Trace mg/dL (Neg-Trace)
[2022-07-31 10:29] LABS: Bacteria Urine None Seen (None Seen); Hyaline Casts Urine 0-2 /LPF (0-2); RBC Urine 0-2 /HPF (0-2); Squamous Epithelial Cell Urine 0-2 /HPF (0-2); WBC Urine 0-5 /HPF (0-5)
[2022-07-31 11:44] LABS: Alanine Aminotransferase 15 U/L (0-40); Albumin Level 4.2 g/dL (3.5-5.0); Alkaline Phosphatase 71 U/L (39-117); Anion Gap 10 (12-20); Aspartate Amino Transferase 19 U/L (5-37); Bilirubin Total 0.3 mg/dL (0.0-1.0); Blood Urea Nitrogen 12 mg/dL (9-16); Calcium 9.4 mg/dL (8.4-10.2); Carbon Dioxide 31 mmol/L (22-29); Chloride 102 mmol/L (96-108); Cholesterol 167 mg/dL; Estimated Glomerular Filt Rate > 60; Glucose Random 86 mg/dL (60-115); HDL Cholesterol 50 mg/dL; Iron 75 mcg/dL (45-160); LDL Cholesterol Calculated 101 mg/dl; Percent Iron Saturation 27 % (15-50); Potassium 3.4 mmol/L (3.3-5.1); Sodium 140 mmol/L (135-145); Total Iron Binding Capacity 278 mcg/dL (228-428); Total Protein 7.5 g/dL (6.5-8.0); Triglycerides 83 mg/dL; Unsaturated Iron Binding 203 ug/dL
[2022-07-31 11:54] LABS: Folate 11.4 ng/mL (> or = 4.0); Vitamin B12 919 pg/mL (200-900)
[2022-07-31 12:24] LABS: Ferritin 16 ng/mL (20-250); Free T4 (Free Thyroxine) 1.21 ng/dL (0.71-1.85); Thyroid Stimulating Hormone 0.39 uIU/mL (0.32-4.0)
== END 2022-07-31 09:31 | disposition home or self-care (01) ==
LOC: HO.LAB 09:30
PROVIDERS: PCP Internal Medicine; Visit Provider Internal Medicine
DX: D64.9 Anemia, unspecified (principal); I10 Essential (primary) hypertension; E78.00 Pure hypercholesterolemia, unspecified; M54.6 Pain in thoracic spine; M54.50 Low back pain, unspecified
CPT/HCPCS: 36415; 80053; 80061; 81001; 82607; 82728; 82746; 83540; 84439; 84443; 85025; 85045

== ENCOUNTER → 2022-08-30 13:30 | Outpatient (BNVA) | payer MEDICARE, MEDICAID, SELFPAY | PROVIDERS: PCP Internal Medicine; Visit Provider Nurse Practitioner Family | DX: G47.33 Obstructive sleep apnea (adult) (pediatric) (principal) | CPT/HCPCS: 99212 ==

== ENCOUNTER 2022-10-19 09:42 | Day surgery (SDC) | payer MEDICARE, MEDICAID, SELFPAY ==
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
--- NOTE | 2022-10-19 10:03 | MHC.SHP ---
Pre-Procedural Eval Section A Date of Service: 10/19/22 Section B Chief Complaint: anemia Details of Present Illness: constipation Relevant Family History (Specify if Yes): No Relevant Social History: None Present Medications: see Short Stay Collaborative assessment Medical History: Significant History (Allergic rhinitis Cervical myofascial strain Contusion of left chest wall Gallbladder polyp Hepatitis B core antibody positive History of anemia Hydrocele Insomnia Left-sided headache Obstructive sleep apnea Vitamin D deficiency) History of Previous Operations: Relevant previous surgery/procedure and date(s) (History of hydrocelectomy History of surgery Hx of colonoscopy Thoracolumbar back pain) Allergies: Allergies Allergy/AdvReac Type Severity Reaction Status Date / Time No Known Allergies Allergy Verified 10/19/22 09:59 Review of Systems Sugical H&P ROS: Negative: Constitution, Cardiovascular, Respiratory, Neurological, Psychiatric, Hem-Onc, Allergic/Immunologic, Gastrointestinal, Genitourinary, Musculoskeletal, Integumentary, Endocrine and Eyes/Ears/Nose/Throat Exam Surgical H&P Exam: Normal: HEENT, Normal: Heart, Normal: Lungs, Normal: Extremities, Normal: Abdomen, Normal: Skin and Normal: Neurological Plan Diagnosis/Plan: Unchanged I have reviewed the history and physical and performed a pertinent physical examination on my patient. No changes have occurred unless specified. Time Spent With Patient Time: Total time managing care of this patient today ____ minutes.
[2022-10-19 10:05] VITALS: BMI 27.3
[2022-10-19 10:12] VITALS: BP 143/106; PULSE 76; RESP 16; TEMP 36.7; O2SAT 98
[2022-10-19] MEDS: Lactated Ringers 1,000 ML 100 ML IVCONT (10:42)
--- NOTE | 2022-10-19 11:29 | W.PM.OPN ---
Operative Note Operative Note Date of Service: 10/19/22 Narrative: Operative Information Procedure Description: EGD, Colonoscopy Indication: anemia and constipation Anesthesia: MAC FLEXIBLE TRANSORAL UPPER GASTROINTESTINAL ENDOSCOPY AND COLONOSCOPY PROCEDURE NOTE UPPER ENDOSCOPY Consent: Indications for the procedure and potential complications of bleeding, perforation, reaction to medications and missed diagnosis were discussed with the patient and informed consent was obtained. Instrument: Olympus GIF H 190 J mid size upper endoscope Monitoring: Vital signs and clinical assessment, continuous EKG monitoring, Pulse oximetry, Carbon Dioxide monitoring and blood pressure monitoring were done throughout the procedure. Procedure: The patient was placed in the left lateral decubitis position and pre-procedure medications were administered and a bite block was placed. The endoscope was inserted into the mouth and advanced under direct vision to the third part of duodenum. A careful inspection was made as the upper endoscope was withdrawn including a retroflexed examination of the proximal stomach; Findings and interventions are described below. Findings: Larynx:normal Esophagus: GE junction at 40 cm, diaphragm hiatus at 40 cm, normal mucosa Stomach: Normal mucosa. Biopsies were obtained. Grade 2 flap valve on retroflexed examination of the cardia. There appeared to be reduced motility. Duodenum: Normal bulb and descending duodenum, bx taken Intervention: Biopsies as noted above COLONOSCOPY Instrument: Olympus variable stiffness pediatric scope 190L Colonoscopy Monitoring: Vital signs and clinical assessment, continuous EKG monitoring, Pulse oximetry, Carbon Dioxide monitoring and blood pressure monitoring were done throughout the procedure. Colon withdrawal time was 9 minutes. Procedure: The patient was placed in the left lateral decubitis position and pre-procedure medications were administered. After a digital rectal examination of the ano-rectum, the video colonoscope was inserted into the rectum and advanced through the colon to the cecum/TI. The colonoscope was slowly withdrawn in a retrograde panoramic fashion and the colon mucosa was carefully examined including a retroflexed view of the rectum. Findings and interventions are described below. Procedure Difficulty:moderate due to redundant colon, also reduced motility noted Findings: Terminal Ileum-normal, bx taken patchy mild erythema noted in colon, random bx taken, aslo reduced/minimal motility Cecum:normal Ascending Colon: normal Transverse Colon -normal Descending Colon:normal Sigmoid Colon: normal Rectum: Retroflexion with small internal hemorrhoids, grade I Anorectum - normal Colon preparation: [place] Bowel Preparation Scale Right colon; 2 Transverse colon: 2 Left colon; 2 (0 = Unprepared colon segment with mucosa not seen due to solid stool that cannot be cleared. 1 = Portion of mucosa of the colon segment seen, but other areas of the colon segment not well seen due to staining, residual stool and/or opaque liquid. 2 = Minor amount of residual staining, small fragments of stool and/or opaque liquid, but mucosa of colon segment seen well. 3 = Entire mucosa of colon segment seen well with no residual staining, small fragments of stool or opaque liquid) Impression and Post Procedure Diagnosis: Endoscopy Findings: possible gastroparesis Colonoscopy Findings: suspected colonic dysmotility non specific colonic erythema internal hemorrhoids Plan: Await Pathology results Repeat Colonoscopy in 10 years or earlier if clinically indicated High fiber diet leaflet avoid straining at stool, epsom salts and sitz bath, anusol supps or cream might benefit from trial of motegrity, consider GES Above findings were reviewed with the patient and relevant handouts were provided if indicated.
[2022-10-19 12:21] VITALS: BP 109/72; PULSE 84; RESP 15; TEMP 37.2; O2SAT 97
[2022-10-19 12:36] VITALS: BP 138/98; PULSE 78; RESP 15; TEMP 36.6; O2SAT 100
[2022-10-19 12:50] VITALS: BP 156/108; PULSE 75; RESP 16; TEMP 37.2; O2SAT 99
== END 2022-10-19 13:20 | disposition home or self-care (01) ==
PROVIDERS: PCP Internal Medicine; Visit Provider Internal Medicine Gastroenterology
PROC: (CPT 45380; principal; 2022-10-19 11:00)
DX: Z12.11 Encounter for screening for malignant neoplasm of colon (principal); D64.9 Anemia, unspecified; K64.8 Other hemorrhoids; K59.00 Constipation, unspecified; K64.0 First degree hemorrhoids; K59.89 Other specified functional intestinal disorders; Q43.8 Other specified congenital malformations of intestine; G47.33 Obstructive sleep apnea (adult) (pediatric); K44.9 Diaphragmatic hernia without obstruction or gangrene; I10 Essential (primary) hypertension; E87.6 Hypokalemia; F41.1 Generalized anxiety disorder; Z79.899 Other long term (current) drug therapy
CPT/HCPCS: 45380; 43239; 88305; 88342; J2250; J3010

== ENCOUNTER → 2022-11-09 10:01 | Outpatient (BNVA) | payer MEDICARE, MEDICAID, SELFPAY | PROVIDERS: PCP Internal Medicine; Visit Provider Physician Assistant | DX: K64.9 Unspecified hemorrhoids (principal); K31.84 Gastroparesis; K59.00 Constipation, unspecified; D64.9 Anemia, unspecified | CPT/HCPCS: 99212 ==

== ENCOUNTER 2022-12-06 09:25 | Outpatient (REF) | payer MEDICARE, MEDICAID, SELFPAY ==
[2022-12-06 09:42] LABS: MANUAL DIFF FLAG NO
[2022-12-06 10:21] LABS: Eosinophils Absolute Auto 0.1 X10*3/uL (0.0-0.4); Eosinophils Percent Auto 3.6 % (0-4); Hematocrit 39.4 % (42.0-52.0); Imm Gran Abs Auto 0.01 X10*3/uL (0.00-0.03); Imm Gran Pct Auto 0.3 % (0.0-0.4); Immature Retic Fraction 6.9 % (2.3-13.4); Lymphocytes Absolute Auto 1.8 X10*3/uL (1.2-4.9); Lymphocytes Percent Auto 45.7 % (20-40); Mean Corpuscular Hemoglobin 26.1 pg (27.0-33.0); Mean Corpuscular Volume 79.1 fL (80.0-98.0); Mean Platelet Volume 11.1 fL (9.4-12.4); Monocytes Absolute Auto 0.4 X10*3/uL (0.1-1.2); Monocytes Percent Auto 9.6 % (2-11); Neutrophils Absolute Auto 1.6 x10*3/uL (2.0-8.3); Neutrophils Percent Auto 39.8 % (45-73); Platelet Count 221 X10*3/uL (160-400); Red Blood Count 4.98 X10*6/uL (4.60-5.80); Red Cell Distribution Width 15.3 % (11.0-16.0); Retic HGB Equivalent 31.3 pg (30.0-35.0); Reticulocyte Percent 1.1 % (0.5-1.8); Reticulocytes Absolute 0.055 X10*6/uL (0.026-0.095); White Blood Count 3.9 X10*3/uL (4.8-10.8)
[2022-12-06 10:23] LABS: Basophils Absolute Auto 0.1 X10*3/uL (0.0-0.2); Basophils Percent Auto 1.2 % (0-2); Eosinophils Absolute Auto 0.2 X10*3/uL (0.0-0.4); Eosinophils Percent Auto 3.6 % (0-4); Hematocrit 39.2 % (42.0-52.0); Imm Gran Abs Auto 0.01 X10*3/uL (0.00-0.03); Imm Gran Pct Auto 0.2 % (0.0-0.4); Mean Corpuscular HGB Conc 33.2 g/dl (31.0-36.0); Mean Corpuscular Hemoglobin 26.5 pg (27.0-33.0); Mean Platelet Volume 11.7 fL (9.4-12.4); Monocytes Absolute Auto 0.4 X10*3/uL (0.1-1.2); Neutrophils Absolute Auto 1.6 x10*3/uL (2.0-8.3); Platelet Count 238 X10*3/uL (160-400); Red Cell Distribution Width 15.2 % (11.0-16.0); White Blood Count 4.2 X10*3/uL (4.8-10.8)
[2022-12-06 11:14] LABS: Appearance Urine Cloudy; Color Urine Yellow; Glucose Urine UA Negative (Negative); Leukocyte Esterase Urine Negative (Negative); Nitrite Urine Negative (Negative); Specific Gravity - Urine 1.015 (1.005-1.025); Urine Blood Negative (Negative); Urine Ketones Negative (Negative); Urine Protein Trace mg/dL (Neg-Trace)
[2022-12-06 11:17] LABS: Bacteria Urine None Seen (None Seen); Hyaline Casts Urine 0-2 /LPF (0-2); RBC Urine 0-2 /HPF (0-2); Squamous Epithelial Cell Urine 0-2 /HPF (0-2); WBC Urine 0-5 /HPF (0-5)
[2022-12-06 11:22] LABS: Iron 72 mcg/dL (45-160); Percent Iron Saturation 26 % (15-50); Total Iron Binding Capacity 274 mcg/dL (228-428); Unsaturated Iron Binding 202 ug/dL
[2022-12-06 11:34] LABS: Iron 70 mcg/dL (45-160); Percent Iron Saturation 26 % (15-50); Total Iron Binding Capacity 273 mcg/dL (228-428); Unsaturated Iron Binding 203 ug/dL
[2022-12-06 11:44] LABS: Ferritin 11 ng/mL (20-250)
[2022-12-06 11:49] LABS: Ferritin 11 ng/mL (20-250); Folate 14.4 ng/mL (> or = 4.0); Vitamin B12 896 pg/mL (200-900)
== END 2022-12-06 09:26 | disposition home or self-care (01) ==
LOC: HO.LAB 09:25
PROVIDERS: Physician Assistant; PCP Internal Medicine; Visit Provider Internal Medicine
DX: R35.0 Frequency of micturition (principal); D64.9 Anemia, unspecified
CPT/HCPCS: 36415; 81001; 82607; 82728; 82746; 83540; 85025; 85045

== ENCOUNTER → 2022-12-20 08:03 | Outpatient (REF) | payer MEDICARE, MEDICAID, SELFPAY ==
--- NOTE | ~2022-12-20 | NM_ITS ---
EXAMINATION: RADIONUCLIDE SOLID FOOD GASTRIC EMPTYING 4-HOUR STUDY CLINICAL INFORMATION: Gastroparesis. COMPARISON: No previous gastric emptying study is available for comparison. TECHNIQUE: A standard meal consisting of 4 oz of Egg Beaters brand tagged with 990 microcuries Tc-99m Sulfur Colloid, 8 oz water and 2 slices of toast with jelly was administered orally to the patient. Images were obtained using a dual head gamma camera in the anterior and posterior projections over of the stomach immediately post ingestion and at hourly intervals up to 3 hours post ingestion. Images were not obtained at 4 hours due to the minimal retention at 3 hours. The anterior and posterior counts at each time interval were averaged using the geometric mean and expressed as percentage of the immediate post ingestion counts. FINDINGS: There is good visualization of activity in the stomach immediately post ingestion. As the study progresses, there is good clearance of activity from the stomach and visualization of progressively increasing small bowel activity. By the end of the study, there is almost no retention noted in the stomach. Retention in the stomach at each time interval was: 1 hour 61% (normal 37%-90%) 2 hours 8% (normal 30%-60%) 3 hours 2% 4 hours (Not Obtained) (normal 0%-10%) NM/NM gastric emptying study IMPRESSION: Normal solid food gastric emptying study.
== END ==
LOC: HO.NUCMED 08:03
PROVIDERS: PCP Internal Medicine; Visit Provider Physician Assistant
DX: K31.84 Gastroparesis (principal)
CPT/HCPCS: 78264; A9541

== ENCOUNTER 2023-03-02 11:19 | Outpatient (REF) | payer MEDICARE, MEDICAID, SELFPAY ==
--- NOTE | ~2023-03-02 | XR_ITS ---
EXAMINATION: XR CHEST CLINICAL INFORMATION: Shortness of breath COMPARISON: 03/10/2022 TECHNIQUE: 2 views of the chest were obtained. FINDINGS: There is no interval change since previous examination in appearance of dextroscoliosis of thoracic spine and mediastinal shift to the left. Lungs are clear there is no pleural effusion or vascular congestion. XR/XR chest 2V IMPRESSION: No active cardiopulmonary disease and no interval change.
== END 2023-03-02 11:20 | disposition home or self-care (01) ==
LOC: HO.XRAY 11:19
PROVIDERS: PCP Internal Medicine; Visit Provider Internal Medicine
DX: R06.02 Shortness of breath (principal)
CPT/HCPCS: 71046

== ENCOUNTER 2023-05-07 10:38 | Outpatient (AMB) | payer MEDICARE, MEDICAID, SELFPAY ==
[2023-05-07 10:41] VITALS: BP 130/90; PULSE 100; O2SAT 95; BMI 26.0
--- NOTE | 2023-05-07 10:41 | MHC.PC.OV ---
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 Allergies No Known Allergies Allergy (Verified 05/07/23 10:45) Tobacco use date assessed: 05/07/23 Dental Screening Dental Screen Date: 05/07/23 Did you have a dental visit in the last 12 months?: Yes Did you have a dental problem in the last 6 months where you did not have access to dental care?: No Was dental information given to patient?: Patient has dentist HPI sob, scoliosis HPI Details 47-year-old overweight male with a history of hypertension severe scoliosis anemia generalized anxiety disorder obstructive sleep apnea last seen in 02/11 patient has some problems with breathing and an x-ray as well as pulmonary function test requested.. Patient had obstructive sleep apnea and has been using the CPAP spotty. Overweight, blood work done May but noted to have anemia which is getting better and is iron deficiency. Had some problems with chest x-ray done revealing negative results pulmonary function test was requested but this was not done. PENDING SALE TO [facility] Medical History Allergic rhinitis Cervical myofascial strain Colon cancer screening Contusion of left chest wall Gallbladder polyp Hepatitis B core antibody positive History of anemia Hydrocele Insomnia Left-sided headache Obstructive sleep apnea Vitamin D deficiency Surgical History History of esophagogastroduodenoscopy (EGD) History of hydrocelectomy History of surgery Hx of colonoscopy Thoracolumbar back pain Family History Father Hypertension Mother Hypertension Maternal Aunt Past heart attack Sister Brain aneurysm Social History Housing: House Alcohol intake: never Patient Tobacco Use Status: Never used Tobacco e-Cigarette/Vaping Use: Never Used Second Hand Smoke Exposure: Yes service: No Current occupational status: unemployed Cognitive needs: No Hearing needs: No Vision needs: Yes (reading glasses ) Questionnaire PHQ-9 Over the last 2 weeks, how often have you been bothered by any of the following problems? 1. Little interest or pleasure in doing things: not at all 2. Feeling down, depressed, or hopeless: not at all 3. Trouble falling or staying asleep, or sleeping too much: not at all 4. Feeling tired or having little energy: not at all 5. Poor appetite or overeating: not at all 6. Feeling bad about yourself - or that you are a failure or have let yourself or your family down: not at all 7. Trouble concentrating on things, such as reading the newspaper or watching television: not at all 8. Moving or speaking so slowly that other people could have noticed. Or the opposite - being so fidgety or restless that you have been moving around a lot more than usual: not at all 9. Thoughts that you would be better off or of hurting yourself in some way: not at all Total score: 0 Depression Screening Interpretation: Negative Depression Screening Done: Yes Source: Developed by Drs. Igor Sheehan, Perri Robin, Bakari Olivarez and colleagues, with an educational daniele from [employer]. Thrive Questionnaire Date Thrive assessed: 10/20/22 I am a: Patient What is your living situation today?: I have a steady place to live Within the past 12 months, did the food you bought not last and you didn't have the money to get more?: Never true Within the past 12 months, did you worry whether your food would run out before you got money to buy more?: Never true Currently or been in a relationship where the following occur: no concerns reported AUDIT C Alcohol Use Questionnaire (AUDIT-C) 1. How often do you have a drink containing alcohol?: Never 3. How often do you have six or more drinks on one occasion?: Never Total Score: 0 AMISH-7 AMB Questionnaire AMISH-7 Date AMISH - 7 assessed: 10/20/22 Source: Developed by Drs. Igor Sheehan, Perri Robin, Bakari Olivarez and colleagues, with an educational daniele from [employer]. Physical exam (Primary Care) Vital Signs: Last Vital Signs Pulse 100 05/07/23 10:41 BP 130/90 H 05/07/23 10:41 Pulse Ox 95 05/07/23 10:41 Oxygen Delivery Method Room Air 05/07/23 10:41 BMI result Body Mass Index 26.0 Tobacco/Smoking Status: Tobacco use Status Tobacco use date assessed 05/07/23 05/07/23 10:48 Patient Tobacco Use Status Never used Tobacco 05/07/23 10:48 e-Cigarette/Vaping Use Never Used 05/07/23 10:48 PHQ-9: PHQ-9 Score PHQ-9: Total score 0 05/07/23 11:00 Depression Screening Interpretation: Negative Thrive Assessment: Date of Thrive Assessment Date Thrive assessed 10/20/22 05/07/23 10:48 Currently or been in a relationship where the following occur: no concerns reported Const General: alert; No acute distress Eyes Conjunctivae: conjunctivae normal Resp Auscultation: clear to auscultation bilaterally Cardio Rate: regular rate Rhythm: regular rhythm GI Inspection: Yes normal to inspection Extrem General: Yes normal to inspection and No edema Assessment and Plan Assessment & Plan (1) HTN (hypertension): Code(s): I10 - Essential (primary) hypertension Qualifiers: Hypertension type: essential hypertension Qualified Code(s): I10 - Essential (primary) hypertension Plan: Patient on amlodipine 10 mg once a day lisinopril 40 mg once a day. Continue with blood pressure medication. Decrease salt intake and exercise (2) Scoliosis: Comment: [place] Status post hardware removalprosthetic joint fusion of spine of thoracolumbar region surgery 11/09/2021 removal of thoracolumbar spine implants left and right sides posterior bilateral surgeon Dr. Yojana Verduzco Code(s): M41.9 - Scoliosis, unspecified Qualifiers: Idiopathic scoliosis type: other Scoliosis type: idiopathic Spinal region: thoracolumbar Qualified Code(s): M41.25 - Other idiopathic scoliosis, thoracolumbar region Plan: Patient will be meeting with the back specialist and of the (3) Anemia: Comment: Iron deficient Code(s): D64.9 - Anemia, unspecified Qualifiers: Anemia type: unspecified type Qualified Code(s): D64.9 - Anemia, unspecified Plan: Will request for no blood work patient continues with iron and vitamin-C (4) Obstructive sleep apnea: Comment: Mild December 2017, cannot tolerate CPAP, moderately severe December 2021 Code(s): G47.33 - Obstructive sleep apnea (adult) (pediatric) Plan: Discussed importance of using CPAP patient continues to have difficulty with the CPAP and so will do a referral to neurologist and [facility](requested) for further management of the obstructive sleep apnea (5) SOB (shortness of breath): Code(s): R06.02 - Shortness of breath Plan: Will request for the PFT again Orders: Orders Ferritin Today D64.9 - Anemia, unspecified PFT pulmonary function test Today R06.02 - Shortness of breath Complete Blood Count Auto Diff Today D64.9 - Anemia, unspecified IRON PROFILE Today D64.9 - Anemia, unspecified Reticulocyte Count Today D64.9 - Anemia, unspecified Vitamin B12 and Folate Today D64.9 - Anemia, unspecified Comprehensive Met. Panel Today R06.02 - Shortness of breath Referrals Sleep Medicine Referral G47.33 - Obstructive sleep apnea (adult) (pediatric) Medications: Refilled tramadol 50 mg PO DAILY 30 tabs 0RF R06.02 - Shortness of breath lisinopril 40 mg PO DAILY 90 tabs 1RF I10 - Essential (primary) hypertension amlodipine 10 mg PO DAILY 90 days 90 tabs 1RF I10 - Essential (primary) hypertension fluticasone propionate 50 mcg/actuation (Flonase Allergy Relief) administer into each nostril 2 sprays intranasal DAILY 16 grams 2RF R09.81 - Nasal congestion Coding Level of Care Code Est Pt Level 4 (47096) Diagnoses Essential hypertension I10 Hypertension type: essential hypertension Other idiopathic scoliosis, thoracolumbar region M41.25 Idiopathic scoliosis type: other Scoliosis type: idiopathic Spinal region: thoracolumbar Anemia, unspecified type D64.9 Anemia type: unspecified type Obstructive sleep apnea G47.33 SOB (shortness of breath) R06.02 Additional Codes PHQ-9 - 53153 - PHQ-9 Billing: ([id number])
[2023-05-07 11:04] VITALS: BP 114/80
== END 2023-05-07 11:21 | disposition home or self-care (01) ==
PROVIDERS: PCP Internal Medicine; Visit Provider Internal Medicine
DX: I10 Essential (primary) hypertension (principal); M41.25 Other idiopathic scoliosis, thoracolumbar region; D64.9 Anemia, unspecified; G47.33 Obstructive sleep apnea (adult) (pediatric); R06.02 Shortness of breath
CPT/HCPCS: 99214

== ENCOUNTER 2023-05-09 10:58 | Outpatient (AMB) | payer MEDICARE, MEDICAID, SELFPAY ==
--- NOTE | 2023-05-09 11:27 | A.OFFVIS_ITS ---
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 Pt is not compliant CPAP. Pt reports he still has difficulty keep using CPAP at night. He has hx of scoliosis and needs to sleep on his right side, and feels uncomfortable with CPAP. The CPAP pressures was changed to 7 cmH2O at the last visit, the pressure is not effective to to treat his SELINA. The previous setting was APAP [id number]. The CPAP compliance report and therapy response (05/30/22-08/27/22) reviewed with the patient. Pt is on APAP [id number]. Usage days 51% and average usage hours 4 hours. The median pressure is 7.4 and the residual AHI was 1.5. [facility] Medical History History of anemia Colon cancer screening Contusion of left chest wall Cervical myofascial strain Left-sided headache Gallbladder polyp Hepatitis B core antibody positive Hydrocele Insomnia Vitamin D deficiency Allergic rhinitis Obstructive sleep apnea Surgical History History of esophagogastroduodenoscopy (EGD) Hx of colonoscopy Thoracolumbar back pain History of hydrocelectomy History of surgery Family History Father Hypertension Mother Hypertension Maternal Aunt Past heart attack Sister Brain aneurysm Social History Housing: House Alcohol intake: never Patient Tobacco Use Status: Never used Tobacco e-Cigarette/Vaping Use: Never Used Second Hand Smoke Exposure: Yes service: No Current occupational status: unemployed Cognitive needs: No Hearing needs: No Vision needs: Yes (reading glasses ) Review of Systems Const All systems reviewed & are unremarkable except as noted in HPI and below ENT Reports Normal hearing present Neuro Reports Normal hearing present Physical Exam Vital Signs: Last Vital Signs Pulse 81 05/09/23 11:30 BP 110/62 05/09/23 11:30 Pulse Ox 96 05/09/23 11:30 Oxygen Delivery Method Room Air 05/09/23 11:30 Const General: cooperative Nutritional Appearance: average body habitus Orientation/consciousness: patient oriented x3 HEENT Throat: Yes other (mallampati grade 4) Neck Other: Limited ROM due to neck pain. Resp Effort & Inspection: normal respiratory effort and able to speak in complete sentences Neuro General: patient oriented x3 and moves all extremities Cranial nerves: Yes Bilaterally intact EOM present, Yes Normal facial strength present, Yes Midline tongue present, Yes Symmetric palate elevation present, Yes Normal hearing present, Yes Ability to bilaterally rotate head present and Yes Ability to bilaterally elevate shoulders present Cognition (Neuro): normal cognition Gait exam (Neuro): Antalgic gait present Motor exam (neuro): 5/5 motor strength present throughout and no tremor noted Psych Appearance: grossly normal Mental Status: mental status grossly normal Speech and movement: Normal speech and movement present Affect: normal affect Attitude: cooperative Assessment & Plan Assessment & Plan (1) Obstructive sleep apnea: Comment: Mild December 2017, cannot tolerate CPAP, moderately severe December 2021 Code(s): G47.33 - Obstructive sleep apnea (adult) (pediatric) Plan Change CPAP setting to APAP [id number]. Advised patient to try CPAP mask while he is awake and then try wearing mask and hose with machine turned on during the day while he is awake to get used to it. Stressed compliance, use CPAP every night and more than 4 hours. Coding Level of Care Code Est Pt Level 3 (77436) Diagnoses Obstructive sleep apnea G47.33
[2023-05-09 11:30] VITALS: BP 110/62; PULSE 81; O2SAT 96
== END 2023-05-09 11:45 | disposition home or self-care (01) ==
PROVIDERS: Visit Provider Nurse Practitioner Family
DX: G47.33 Obstructive sleep apnea (adult) (pediatric) (principal)
CPT/HCPCS: 99213

== ENCOUNTER → 2023-05-09 10:58 | Outpatient (BNVA) | payer MEDICARE, MEDICAID, SELFPAY | PROVIDERS: Visit Provider Nurse Practitioner Family | DX: G47.33 Obstructive sleep apnea (adult) (pediatric) (principal) | CPT/HCPCS: 99212 ==

== ENCOUNTER 2023-05-22 09:10 | Outpatient (REF) | payer MEDICARE, MEDICAID, SELFPAY ==
[2023-05-22 09:28] LABS: MANUAL DIFF FLAG NO
[2023-05-22 09:58] LABS: Basophils Percent Auto 0.9 % (0-2); Eosinophils Absolute Auto 0.2 X10*3/uL (0.0-0.4); Hematocrit 39.7 % (42.0-52.0); Hemoglobin 13.1 g/dl (14.0-18.0); Imm Gran Abs Auto 0.01 X10*3/uL (0.00-0.03); Imm Gran Pct Auto 0.2 % (0.0-0.4); Immature Retic Fraction 5.9 % (2.3-13.4); Lymphocytes Absolute Auto 2.1 X10*3/uL (1.2-4.9); Lymphocytes Percent Auto 48.6 % (20-40); Mean Corpuscular Hemoglobin 26.7 pg (27.0-33.0); Mean Platelet Volume 11.5 fL (9.4-12.4); Monocytes Absolute Auto 0.5 X10*3/uL (0.1-1.2); Monocytes Percent Auto 10.5 % (2-11); Neutrophils Absolute Auto 1.5 x10*3/uL (2.0-8.3); Neutrophils Percent Auto 35.8 % (45-73); Platelet Count 230 X10*3/uL (160-400); Red Cell Distribution Width 14.8 % (11.0-16.0); Retic HGB Equivalent 31.1 pg (30.0-35.0); Reticulocytes Absolute 0.051 X10*6/uL (0.026-0.095); White Blood Count 4.3 X10*3/uL (4.8-10.8)
[2023-05-22 10:37] LABS: Alanine Aminotransferase 14 U/L (0-40); Albumin Level 4.4 g/dL (3.5-5.0); Alkaline Phosphatase 58 U/L (39-117); Anion Gap 13 (12-20); Aspartate Amino Transferase 17 U/L (5-37); Bilirubin Total 0.4 mg/dL (0.0-1.0); Blood Urea Nitrogen 12 mg/dL (9-16); Calcium 9.6 mg/dL (8.4-10.2); Carbon Dioxide 30 mmol/L (22-29); Chloride 103 mmol/L (96-108); Estimated Glomerular Filt Rate > 60; Glucose Random 85 mg/dL (60-115); Iron 93 mcg/dL (45-160); Percent Iron Saturation 33 % (15-50); Sodium 143 mmol/L (135-145); Total Iron Binding Capacity 279 mcg/dL (228-428); Total Protein 7.7 g/dL (6.5-8.0); Unsaturated Iron Binding 186 ug/dL
[2023-05-22 10:52] LABS: Ferritin 23 ng/mL (20-250)
[2023-05-22 11:07] LABS: Folate 13.2 ng/mL (> or = 4.0); Vitamin B12 1026 pg/mL (200-900)
== END 2023-05-22 09:11 | disposition home or self-care (01) ==
LOC: HO.LAB 09:10
PROVIDERS: PCP Internal Medicine; Visit Provider Internal Medicine
DX: D64.9 Anemia, unspecified (principal); R06.02 Shortness of breath
CPT/HCPCS: 36415; 80053; 82607; 82728; 82746; 83540; 85025; 85045

== ENCOUNTER 2023-06-08 07:19 | Outpatient (REF) | payer MEDICARE, MEDICAID, SELFPAY ==
--- NOTE | 2023-06-08 08:28 | PFT_ITS ---
FINDINGS: Forced vital capacity 64%, FEV1 66%. FEV1/FVC ratio is 83. FEF 25-75 66% and MVV 74%. Post bronchodilator therapy, there is no significant change except for slight increase in FVC. Total lung capacity 64% and residual volume 92%. DLCO 76%. CONCLUSION: 1. Restrictive pulmonary disorder, moderately severe. 2. No obstructive airway disorder. MD MAKEDA Jim/MODL / [id number]
== END 2023-06-08 07:20 | disposition home or self-care (01) ==
LOC: HO.RESP 07:19
PROVIDERS: PCP Internal Medicine; Visit Provider Internal Medicine
DX: R06.02 Shortness of breath (principal)
CPT/HCPCS: 94010; 94727; 94729

== ENCOUNTER → 2023-06-08 08:28 | Outpatient (BNV) | payer MEDICARE, MEDICAID, SELFPAY | PROVIDERS: PCP Internal Medicine; Visit Provider Internal Medicine | DX: R06.02 Shortness of breath (principal) | CPT/HCPCS: 94060; 94727; 94729 ==

== ENCOUNTER 2023-06-12 10:47 | Outpatient (AMB) | payer MEDICARE, MEDICAID, SELFPAY ==
[2023-06-12 11:04] VITALS: BP 110/80; PULSE 81; O2SAT 97; BMI 26.7
--- NOTE | 2023-06-12 11:04 | HO.NEPHOV_ITS ---
HPI HPI Comments History of Present Illness Details Vincenzo is a middle-aged man with these hypertension for more than 15 years. He was diagnosed with hypertension in his early 30s. He since then has been on multiple antidepressant medication. Currently is on 2 antihypertensive medications including lisinopril. He is not on any diuretics. He has a history of hypokalemia the potassium 3.0 and mild alkalosis and hands this referral. [facility] Medical History History of anemia Colon cancer screening Contusion of left chest wall Cervical myofascial strain Left-sided headache Gallbladder polyp Hepatitis B core antibody positive Hydrocele Insomnia Vitamin D deficiency Allergic rhinitis Obstructive sleep apnea Surgical History History of esophagogastroduodenoscopy (EGD) Hx of colonoscopy Thoracolumbar back pain History of hydrocelectomy History of surgery Family History Father Hypertension Mother Hypertension Maternal Aunt Past heart attack Sister Brain aneurysm Housing: House Alcohol intake: never Patient Tobacco Use Status: Never used Tobacco e-Cigarette/Vaping Use: Never Used Second Hand Smoke Exposure: Yes service: No Current occupational status: unemployed Cognitive needs: No Hearing needs: No Vision needs: Yes (reading glasses ) Vital Signs 06/12/23 11:04 Height 5 ft 7 in Weight 170 lb 8 oz BMI 26.7 BP 110/80 Blood Pressure Location Lt brachial Position Sitting Pulse 81 Pulse Source Pulse Oximeter Pulse Oximetry (%) 97 Oxygen Delivery Method Room Air Physical Exam Vital Signs: Last Vital Signs Pulse 81 06/12/23 11:04 BP 110/80 06/12/23 11:04 Pulse Ox 97 06/12/23 11:04 Oxygen Delivery Method Room Air 06/12/23 11:04 BMI result Body Mass Index 26.7 Const General: comfortable Nutritional Appearance: well nourished Orientation/consciousness: patient oriented x3 HEENT Head: No normal to inspection Mouth: moist mucous membranes Neck Neck: Yes supple and Yes no JVD Resp Auscultation: clear to auscultation bilaterally, no rales and rub present Cardio Jugular venous distension: no JVD Palpation: no palpable S3 and no palpable S4 Heart sounds: no rubs GI Palpation (GI): Soft to palpation and nontender Percussion: No Fluid wave present General: Yes no CVA tenderness Back/Spine/Pelvis Back: no CVA tenderness and other (Scoliosis) Skin General skin exam: no rashes or lesions noted Neuro General: patient oriented x3 Extrem General: Yes no pedal edema and No clubbing Results Reviewed Results Reviewed: Serum creatinine was normal. Potassium 3.0 Total CO2 of 30 Assessment & Plan Assessment & Plan (1) HTN (hypertension): Code(s): I10 - Essential (primary) hypertension Qualifiers: Hypertension type: essential hypertension Qualified Code(s): I10 - Essential (primary) hypertension (2) Hypokalemia: Code(s): E87.6 - Hypokalemia Plan Middle-aged man with longstanding hypertension who has mild hypokalemia with alkalosis. Currently is not on diuretics. This combination is suggestive of hyperaldosteronism. He had a CT scan in 2021 which revealed normal adrenal glands. I will initiate a workup for the same. I have asked him to stop lisinopril for a week and go for a blood work to check serum aldosterone and plasma renin activity. He will restart lisinopril after the blood work is completed. Based on the she PA PRA should be completely with further workup if necessary. At the present time serum potassium is in the normal range. Renal function stable. Blood pressure is well controlled. Further workup will be based on the outcome of the above investigations. Orders: Orders Blood Urea Nitrogen 10 Days E87.6 - Hypokalemia, I10 - Essential (primary) hypertension Calcium 10 Days E87.6 - Hypokalemia, I10 - Essential (primary) hypertension Aldost/Renin 10 Days E87.6 - Hypokalemia, I10 - Essential (primary) hypertension Electrolytes 10 Days E87.6 - Hypokalemia, I10 - Essential (primary) hypertension Creatinine 10 Days E87.6 - Hypokalemia, I10 - Essential (primary) hypertension Renin 10 Days E87.6 - Hypokalemia, I10 - Essential (primary) hypertension Aldosterone 10 Days E87.6 - Hypokalemia, I10 - Essential (primary) hypertension Coding Level of Care Code New Pt Level 4 (00849) Diagnoses Essential hypertension I10 Hypertension type: essential hypertension Hypokalemia E87.6
== END 2023-06-12 11:34 | disposition home or self-care (01) ==
PROVIDERS: PCP Internal Medicine; Visit Provider Internal Medicine Hypertension Specialist
DX: I10 Essential (primary) hypertension (principal); E87.6 Hypokalemia
CPT/HCPCS: 99204

== ENCOUNTER → 2023-06-12 10:47 | Outpatient (BNVA) | payer MEDICARE, MEDICAID, SELFPAY | PROVIDERS: PCP Internal Medicine; Visit Provider Internal Medicine Hypertension Specialist | DX: E87.6 Hypokalemia (principal); I10 Essential (primary) hypertension | CPT/HCPCS: 99202 ==

== ENCOUNTER 2023-06-25 08:50 | Outpatient (REF) | payer MEDICARE, MEDICAID, SELFPAY ==
[2023-06-25 09:58] LABS: Anion Gap 10 (12-20); Blood Urea Nitrogen 12 mg/dL (9-16); Carbon Dioxide 28 mmol/L (22-29); Chloride 104 mmol/L (96-108); Estimated Glomerular Filt Rate > 60; Sodium 139 mmol/L (135-145)
[2023-07-02 11:52] LABS: Aldosterone/Renin Ratio 142.1 Ratio (0.9-28.9); Plasma Renin Activity 0.19 ng/mL/h (0.25-5.82)
[2023-07-05 17:04] LABS: Renin 0.14 ng/mL/h (0.25-5.82)
== END 2023-06-25 08:51 | disposition home or self-care (01) ==
LOC: HO.LAB 08:50
PROVIDERS: PCP Internal Medicine; Visit Provider Internal Medicine Hypertension Specialist
DX: I10 Essential (primary) hypertension (principal); E87.6 Hypokalemia
CPT/HCPCS: 36415; 80051; 82088; 82310; 82565; 84244; 84520

== ENCOUNTER 2023-07-05 11:28 | Outpatient (AMB) | payer MEDICARE, MEDICAID, SELFPAY ==
--- NOTE | 2023-07-05 11:08 | HO.NEPHOV ---
HPI HPI Comments History of Present Illness Details Vincenzo is a middle-aged man with these hypertension for more than 15 years. He was diagnosed with hypertension in his early 30s. He since then has been on multiple anti hypertensive medication. Currently is on 2 antihypertensive medications including lisinopril. He is not on any diuretics. He has a history of hypokalemia the potassium 3.0 and mild alkalosis and hence this referral. Lisinopril was held for a week and PA/ PRA was elevated at 146 ! PFSH Medical History SOB (shortness of breath) History of anemia Colon cancer screening Contusion of left chest wall Cervical myofascial strain Left-sided headache Gallbladder polyp Hepatitis B core antibody positive Hydrocele Insomnia Vitamin D deficiency Allergic rhinitis Obstructive sleep apnea Surgical History History of esophagogastroduodenoscopy (EGD) Hx of colonoscopy Thoracolumbar back pain History of hydrocelectomy History of surgery Family History Father Hypertension Mother Hypertension Maternal Aunt Past heart attack Sister Brain aneurysm Social History Housing: House Alcohol intake: never Patient Tobacco Use Status: Never used Tobacco e-Cigarette/Vaping Use: Never Used Second Hand Smoke Exposure: Yes service: No Current occupational status: unemployed Cognitive needs: No Hearing needs: No Vision needs: Yes (reading glasses ) Vital Signs 07/05/23 11:32 Height 5 ft 7 in Weight 172 lb BMI 26.9 BP 116/80 Blood Pressure Location Lt brachial Position Sitting Pulse 76 Pulse Source Pulse Oximeter Pulse Oximetry (%) 96 Oxygen Delivery Method Room Air Physical Exam Vital Signs: Last Vital Signs Pulse 76 07/05/23 11:32 BP 116/80 07/05/23 11:32 Pulse Ox 96 07/05/23 11:32 Oxygen Delivery Method Room Air 07/05/23 11:32 BMI result Body Mass Index 26.9 Const General: comfortable Nutritional Appearance: well nourished Orientation/consciousness: patient oriented x3 HEENT Head: No normal to inspection Mouth: moist mucous membranes Neck Neck: Yes supple and Yes no JVD Resp Auscultation: clear to auscultation bilaterally, no rales and rub present Cardio Jugular venous distension: no JVD Palpation: no palpable S3 and no palpable S4 Heart sounds: no rubs GI Palpation (GI): Soft to palpation and nontender Percussion: No Fluid wave present General: Yes no CVA tenderness Back/Spine/Pelvis Other: Severe scoliosis Back: no CVA tenderness Skin General skin exam: no rashes or lesions noted Neuro General: patient oriented x3 Extrem General: Yes no pedal edema and No clubbing Assessment & Plan Assessment & Plan (1) HTN (hypertension): Code(s): I10 - Essential (primary) hypertension Qualifiers: Hypertension type: essential hypertension Qualified Code(s): I10 - Essential (primary) hypertension (2) Hypokalemia: Code(s): E87.6 - Hypokalemia Plan Middle-aged man with longstanding hypertension who has mild hypokalemia with alkalosis. Currently is not on diuretics. He had a CT scan in 2021 which revealed normal adrenal glands. PA/PRA was elevated at 146 after stopping Lisiniopril for 1 week Serum aldosterone was 27 suggestive of hyperaldosteronism. At the present time serum potassium is still low. Renal function stable. Blood pressure is well controlled. Repeat CT of the adrenals. Restart potassium chloride 20 mEq p.o. daily. Goal is to maintain serum potassium 3.5 millimoles Orders: Orders Blood Urea Nitrogen 2 Months I10 - Essential (primary) hypertension CT adrenal wo/w IV con Today E26.9 - Hyperaldosteronism, unspecified Electrolytes 2 Months I10 - Essential (primary) hypertension Creatinine 2 Months I10 - Essential (primary) hypertension Calcium 2 Months I10 - Essential (primary) hypertension Medications: New potassium chloride ER 20 mEq PO DAILY 30 tabs 3RF Coding Level of Care Code New Pt Level 4 (01182) Diagnoses Essential hypertension I10 Hypertension type: essential hypertension Hypokalemia E87.6 Results Reviewed Nephrology Results: Hgb 13.1 g/dl (14.0-18.0) L 05/22/23 WBC 4.3 X10*3/uL (4.8-10.8) L 05/22/23 Plt Count 230 X10*3/uL (160-400) 05/22/23 Sodium 139 mmol/L (135-145) 06/25/23 Potassium 3.0 mmol/L (3.3-5.1) L 06/25/23 Chloride 104 mmol/L (96-108) 06/25/23 Carbon Dioxide 28 mmol/L (22-29) 06/25/23 BUN 12 mg/dL (9-16) 06/25/23 Creatinine 0.93 mg/dL (0.5-1.4) 06/25/23 Calcium 9.0 mg/dL (8.4-10.2) 06/25/23
[2023-07-05 11:32] VITALS: BP 116/80; PULSE 76; O2SAT 96; BMI 26.9
== END 2023-07-05 11:51 | disposition home or self-care (01) ==
PROVIDERS: PCP Internal Medicine; Visit Provider Internal Medicine Hypertension Specialist
DX: I10 Essential (primary) hypertension (principal); E87.6 Hypokalemia
CPT/HCPCS: 99214

== ENCOUNTER → 2023-07-05 11:28 | Outpatient (BNVA) | payer MEDICARE, MEDICAID, SELFPAY | PROVIDERS: PCP Internal Medicine; Visit Provider Internal Medicine Hypertension Specialist | DX: I10 Essential (primary) hypertension (principal); E87.6 Hypokalemia | CPT/HCPCS: 99212 ==

== ENCOUNTER 2023-07-11 11:18 | Outpatient (AMB) | payer MEDICARE, MEDICAID, SELFPAY ==
--- NOTE | 2023-07-11 11:22 | A.OFFVIS_ITS ---
Intake Vital Signs 07/11/23 11:23 Height 5 ft 7 in BP 140/100 H Blood Pressure Location Rt brachial Position Sitting Pulse 83 Pulse Source Pulse Oximeter Pulse Oximetry (%) 96 Oxygen Delivery Method Room Air Intake Visit Reasons: 2 mnts f/u for SELINA-Mail box full Allergies No Known Allergies Allergy (Verified 07/11/23 11:25) HPI HPI Comments History of Present Illness Details 47 y/o male patient presents for follow up of SELINA on CPAP. Pt is not compliant CPAP. Pt reports he still has difficulty keep using CPAP at night. He has nasal congestion with the current CPAP mask, and has difficulty breathing. He did not try different mask yet. Pt reports he was evaluated by ENT in the past, but was told that no surgery needed. The CPAP compliance report and therapy response (06/11/23-07/10/23) reviewed with the patient. Pt is on APAP [id number]. Usage days 57% and average usage hours 2 hours 40 min. The max pressure is 14 and the residual AHI was 1.6/hr. [facility] Medical History SOB (shortness of breath) History of anemia Colon cancer screening Contusion of left chest wall Cervical myofascial strain Left-sided headache Gallbladder polyp Hepatitis B core antibody positive Hydrocele Insomnia Vitamin D deficiency Allergic rhinitis Obstructive sleep apnea Surgical History History of esophagogastroduodenoscopy (EGD) Hx of colonoscopy Thoracolumbar back pain History of hydrocelectomy History of surgery Family History Father Hypertension Mother Hypertension Maternal Aunt Past heart attack Sister Brain aneurysm Social History Housing: House Alcohol intake: never Patient Tobacco Use Status: Never used Tobacco e-Cigarette/Vaping Use: Never Used Second Hand Smoke Exposure: Yes service: No Current occupational status: unemployed Cognitive needs: No Hearing needs: No Vision needs: Yes (reading glasses ) Review of Systems Const All systems reviewed & are unremarkable except as noted in HPI and below ENT Reports Normal hearing present Neuro Reports Normal hearing present Physical Exam Vital Signs: Last Vital Signs Pulse 83 07/11/23 11:23 BP 140/100 H 07/11/23 11:23 Pulse Ox 96 07/11/23 11:23 Oxygen Delivery Method Room Air 07/11/23 11:23 Const General: cooperative Nutritional Appearance: average body habitus Orientation/consciousness: patient oriented x3 HEENT Throat: Yes other (mallampati grade 4) Neck Other: Limited ROM due to neck pain. Resp Effort & Inspection: normal respiratory effort and able to speak in complete sentences Neuro General: patient oriented x3 and moves all extremities Cranial nerves: Yes Bilaterally intact EOM present, Yes Normal facial strength present, Yes Midline tongue present, Yes Symmetric palate elevation present, Yes Normal hearing present, Yes Ability to bilaterally rotate head present and Yes Ability to bilaterally elevate shoulders present Cognition (Neuro): normal cognition Gait exam (Neuro): Antalgic gait present Motor exam (neuro): 5/5 motor strength present throughout and no tremor noted Psych Appearance: grossly normal Mental Status: mental status grossly normal Speech and movement: Normal speech and movement present Affect: normal affect Attitude: cooperative Assessment & Plan Assessment & Plan (1) Obstructive sleep apnea: Comment: Mild December 2017, cannot tolerate CPAP, moderately severe December 2021 Code(s): G47.33 - Obstructive sleep apnea (adult) (pediatric) Plan Advised patient to try allergy medication at night to prevent nasal congestion. Advised patient to try CPAP mask while he is awake and then try wearing mask and hose with machine turned on during the day while he is awake to get used to it. Stressed compliance, use CPAP every night and more than 4 hours. New mask fitting prescription given to patient. Refer patient for sleep dental medicine for mandibular devicice evaluation. Orders: Referrals Dentistry Referral G47.33 - Obstructive sleep apnea (adult) (pediatric) Coding Level of Care Code Est Pt Level 3 (66799) Diagnoses Obstructive sleep apnea G47.33
[2023-07-11 11:23] VITALS: BP 140/100; PULSE 83; O2SAT 96
== END 2023-07-11 11:49 | disposition home or self-care (01) ==
PROVIDERS: PCP Internal Medicine; Visit Provider Nurse Practitioner Family
DX: G47.33 Obstructive sleep apnea (adult) (pediatric) (principal)
CPT/HCPCS: 99213

== ENCOUNTER → 2023-07-11 11:18 | Outpatient (BNVA) | payer MEDICARE, MEDICAID, SELFPAY | PROVIDERS: PCP Internal Medicine; Visit Provider Nurse Practitioner Family | DX: G47.33 Obstructive sleep apnea (adult) (pediatric) (principal) | CPT/HCPCS: 99212 ==

== ENCOUNTER 2023-07-25 09:15 | Outpatient (AMB) | payer OTHER, SELFPAY ==
[2023-07-25 09:20] VITALS: BP 124/82; PULSE 75; O2SAT 100; BMI 26.8
--- NOTE | 2023-07-25 09:20 | MHC.PC.OV ---
Vital Signs 07/25/23 09:20 Height 5 ft 7 in Weight 171 lb 0.2 oz BMI 26.8 BP 124/82 Blood Pressure Location Lt brachial Position Sitting Pulse 75 Pulse Source Pulse Oximeter Temp Source Skin Pulse Oximetry (%) 100 Oxygen Delivery Method Room Air Intake Visit Reasons: Annual Exam Operations Analyst Required: No Allergies No Known Allergies Allergy (Verified 07/25/23 09:20) Medication List - Last Reconciled 07/25/23 by Lily Bae MD amlodipine 10 mg PO DAILY 90 days ascorbate calcium (vitamin C) 500 mg PO DAILY CPAP (CPAP Machine/Device) As directed auto PAP 6-16 cm H20 himidified air docusate sodium (Colace) 200 mg (2 x 100 mg) PO BEDTIME ferrous sulfate (FeroSul) 325 mg PO DAILY fluticasone propionate 50 mcg/actuation (Flonase Allergy Relief) 2 sprays intranasal DAILY gabapentin 300 mg PO BEDTIME ibuprofen mg PO lisinopril 40 mg PO DAILY potassium chloride ER 20 mEq PO DAILY sennosides-docusate sodium 8.6-50 mg (Senna Plus) 2 tab-caps (2 x 8.6-50 mg) PO BEDTIME tramadol 50 mg PO DAILY Tobacco use date assessed: 07/25/23 Dental Screening Dental Screen Date: 07/25/23 Did you have a dental visit in the last 12 months?: Yes Did you have a dental problem in the last 6 months where you did not have access to dental care?: No Was dental information given to patient?: Patient has dentist HPI Annual Exam HPI Details 47-year-old male with severe scoliosis obstructive sleep apnea hypertension last seen in April 2023 having some shortness of breath and was advised to get PFTs. Patient is here for physical exam colonoscopy is up-to-date September 2022. Review of the notes has seen Neurology for the sleep apnea not compliant yet in stressed the need to comply or and patient was referred to dental.. With hypertension patient was sent to Nephrology also concern about hyperaldosteronism advised to do CT of the adrenals and restart potassium chloride. PFT done showing severe restrictive lung disease due to the severe scoliosis. PAtient will be seeing people from [place] for the scoliosis. asking for pain med since going for a long trip and also also has sleep work insomnia complication and sleep med requested. [facility] Medical History (Updated 07/25/23 @ 09:46 by Lily Bae MD) Insomnia SOB (shortness of breath) History of anemia Colon cancer screening Contusion of left chest wall Cervical myofascial strain Left-sided headache Gallbladder polyp Hepatitis B core antibody positive Hydrocele Insomnia Vitamin D deficiency Allergic rhinitis Obstructive sleep apnea Surgical History History of esophagogastroduodenoscopy (EGD) Hx of colonoscopy Thoracolumbar back pain History of hydrocelectomy History of surgery Family History Father Hypertension Mother Hypertension Maternal Aunt Past heart attack Sister Brain aneurysm Social History Housing: House Alcohol intake: never Patient Tobacco Use Status: Never used Tobacco e-Cigarette/Vaping Use: Never Used Second Hand Smoke Exposure: Yes service: No Current occupational status: unemployed Cognitive needs: No Hearing needs: No Vision needs: Yes (reading glasses ) Questionnaire PHQ-9 Over the last 2 weeks, how often have you been bothered by any of the following problems? 1. Little interest or pleasure in doing things: not at all 2. Feeling down, depressed, or hopeless: not at all 3. Trouble falling or staying asleep, or sleeping too much: not at all 4. Feeling tired or having little energy: not at all 5. Poor appetite or overeating: not at all 6. Feeling bad about yourself - or that you are a failure or have let yourself or your family down: not at all 7. Trouble concentrating on things, such as reading the newspaper or watching television: not at all 8. Moving or speaking so slowly that other people could have noticed. Or the opposite - being so fidgety or restless that you have been moving around a lot more than usual: not at all 9. Thoughts that you would be better off or of hurting yourself in some way: not at all Total score: 0 Depression Screening Interpretation: Negative Depression Screening Done: Yes Source: Developed by Drs. Igor Sheehan, Perri Robin, Bakari Olivarez and colleagues, with an educational daniele from [employer]. Thrive Questionnaire Date Thrive assessed: 10/20/22 AUDIT C Alcohol Use Questionnaire (AUDIT-C) 1. How often do you have a drink containing alcohol?: Never 3. How often do you have six or more drinks on one occasion?: Never Total Score: 0 AMISH-7 AMB Questionnaire AMISH-7 Date AMISH - 7 assessed: 07/25/23 Feeling nervous, anxious, or on edge: 0 = Not at all Not being able to stop or control worryin = Not at all Worrying too much about different things: 0 = Not at all Trouble relaxin = Not at all Being so restless that it is hard to sit still: 0 = Not at all Becoming easily annoyed or irritable: 0 = Not at all Feeling afraid as if something awful might happen: 0 = Not at all Total AMISH-7 score (0-4 normal; 5-9 mild; 10-14 moderate; 15-21 severe): 0 Source: Developed by Drs. Igor Sheehan, Perri Robin, Bakari Olivarez and colleagues, with an educational daniele from [employer]. Review of Systems Const Denies poor appetite and Denies weakness Eyes Denies no additional complaints ENT Reports Normal hearing present, Denies dizziness, Denies nasal congestion, Denies tinnitus and Denies sore throat Card Denies chest pain, Denies syncope, Denies rapid heart rate and Denies dyspnea Resp Denies cough and Denies dyspnea GI Denies change in stool character, Reports constipation, Denies diarrhea, Denies nausea and Denies vomiting Denies dysuria and Denies urinary frequency Musc Details: Symmetry on the back with the right side much more pronounced than the left side Neuro Reports Normal hearing present, Denies confusion, Denies dizziness, Denies syncope and Denies weakness Psych Denies confusion Physical exam (Primary Care) Vital Signs: Last Vital Signs Pulse 75 07/25/23 09:20 BP 124/82 07/25/23 09:20 Pulse Ox 100 07/25/23 09:20 Oxygen Delivery Method Room Air 07/25/23 09:20 BMI result Body Mass Index 26.8 Tobacco/Smoking Status: Tobacco use Status Tobacco use date assessed 07/25/23 07/25/23 09:21 Patient Tobacco Use Status Never used Tobacco 07/25/23 09:21 e-Cigarette/Vaping Use Never Used 07/25/23 09:21 PHQ-9: PHQ-9 Score PHQ-9: Total score 0 07/25/23 09:28 Depression Screening Interpretation: Negative Thrive Assessment: Date of Thrive Assessment Date Thrive assessed 10/20/22 07/25/23 09:21 Const General: No confusion Orientation/consciousness: No confusion HENMT Head: Yes normocephalic Ears: external ears normal and TM's normal bilaterally Face and sinus: Yes normal facial exam Mouth: moist mucous membranes Throat: Yes tonsils normal Eyes Conjunctivae: conjunctivae normal Pupils: Equal, round and reactive pupils present and Pupil accommodation reflex normal Direct Ophthalmoscopy: normal light reflex Neck Neck: No lymphadenopathy Thyroid: Thyroid normal Chest Chest palpation & inspection: normal inspection of the chest Resp Effort & Inspection: normal respiratory effort and no audible wheezes Auscultation: clear to auscultation bilaterally, no crackles, no wheezes and lung sounds not diminished Cardio Rate: regular rate Rhythm: regular rhythm Peripheral pulses: radial pulses present and dorsalis pedis present GI Other: Visual exam shows 1 hemorrhoid no bleeding Palpation (GI): no masses Auscultation: normal bowel sounds and normoactive bowel sounds Rectal Exam - Male: Yes deferred Male General Exam: Yes normal external exam Back/Spine/Pelvis Back/spine/pelvis image: 1. A symmetrical back with the right much more prominent than the left side as the left back is depressed 2. Skin General skin exam: no rashes or lesions noted Rashes: no rashes Neuro General: No confusion Cranial nerves: Yes Equal, round and reactive pupils present and Yes Normal hearing present Cognition (Neuro): normal cognition Gait exam (Neuro): Normal gait present Motor exam (neuro): 5/5 motor strength present throughout Deep tendon reflexes (DTR's): Right brachioradialis reflex intensity grade: 2+, Left brachioradialis reflex intensity grade: 2+, Right patellar reflex intensity grade: 2+ and Left patellar reflex intensity grade: 2+ Extrem General: No edema Assessment and Plan Assessment & Plan (1) Annual physical exam: Code(s): Z00.00 - Encounter for general adult medical examination without abnormal findings (2) Obstructive sleep apnea: Comment: Mild December 2017, cannot tolerate CPAP, moderately severe December 2021 Code(s): G47.33 - Obstructive sleep apnea (adult) (pediatric) Plan: Patient has been followed up by Neurology and has been referred to dental (3) Scoliosis: Comment: 2013 back surgery [place] Status post hardware removalprosthetic joint fusion of spine of thoracolumbar region surgery 11/09/2021 removal of thoracolumbar spine implants left and right sides posterior bilateral surgeon Dr. Yojana Verduzco Code(s): M41.9 - Scoliosis, unspecified Qualifiers: Scoliosis type: idiopathic Idiopathic scoliosis type: other Spinal region: thoracolumbar Qualified Code(s): M41.25 - Other idiopathic scoliosis, thoracolumbar region Plan: Continue with pain management. Patient will be going to [place] for discussion on options for his scoliosis. Since going for a long drive narcotic pain medication was given to help pain (4) HTN (hypertension): Code(s): I10 - Essential (primary) hypertension Qualifiers: Hypertension type: essential hypertension Qualified Code(s): I10 - Essential (primary) hypertension Plan: Continue with blood pressure medication. Decrease salt intake and exercise patient is being followed up by Nephrology concern about hyper aldosteronism (5) Hyperaldosteronism: Code(s): E26.9 - Hyperaldosteronism, unspecified Plan: Patient has been placed on back on potassium, lisinopril 40 mg once a day and amlodipine 10 mg once a day awaiting CT scan checking for adrenals (6) Insomnia: Code(s): G47.00 - Insomnia, unspecified Plan: With the work related insomnia zolpidem prescription sent in. Medications: New oxycodone-acetaminophen 5-325 mg (Percocet) Partial Fill upon patient request. 1 tab PO TID PRN 5 tabs 0RF pain M41.25 - Other idiopathic scoliosis, thoracolumbar region lactulose 20 grams (30 mL) PO TID 2,880 mL 1RF K59.09 - Other constipation zolpidem 5 mg PO BEDTIME PRN 14 tabs 0RF sleep G47.00 - Insomnia, unspecified Coding Level of Care Code Est Pt Prev Care 40-64y(38108) Diagnoses Annual physical exam Z00.00 Obstructive sleep apnea G47.33 Other idiopathic scoliosis, thoracolumbar region M41.25 Scoliosis type: idiopathic Idiopathic scoliosis type: other Spinal region: thoracolumbar Essential hypertension I10 Hypertension type: essential hypertension Hyperaldosteronism E26.9 Insomnia G47.00 Additional Codes PHQ-9 - 43153 - PHQ-9 Billing: ([id number])
== END 2023-07-25 10:00 | disposition home or self-care (01) ==
PROVIDERS: Visit Provider Internal Medicine
DX: Z00.00 Encounter for general adult medical examination without abnormal findings (principal); E26.9 Hyperaldosteronism, unspecified; G47.33 Obstructive sleep apnea (adult) (pediatric); M41.25 Other idiopathic scoliosis, thoracolumbar region; I10 Essential (primary) hypertension; G47.00 Insomnia, unspecified
CPT/HCPCS: 99396

== ENCOUNTER 2023-09-03 08:29 | Outpatient (REF) | payer OTHER, SELFPAY ==
--- NOTE | ~2023-09-03 | CT_ITS ---
EXAMINATION: CT ABDOMEN WITHOUT AND WITH CONTRAST CLINICAL INFORMATION: E26.9 - Hyperaldosteronism, unspecified COMPARISON: Multiple prior studies including the most recent prior 03/24/2022 and the 07/06/2014 CT scan TECHNIQUE: Multidetector volumetric imaging was performed from the superior aspect of the liver through the pelvic brim initially without contrast and then following administration of 85 mL Omnipaque 300 intravenous contrast. Sagittal and coronal reformatted images were obtained on the technologist workstation.. This CT examination was performed using dose optimization techniques as appropriate, variously including the following: *Automated exposure control *Adjustment of mA and/or kV according to patient size (this includes techniques or standardized protocols for targeted exams where dose is matched to indication/reason for exam; i.e. extremities or head) *Use of iterative reconstruction technique DLP: 325 mGy-cm FINDINGS: LUNG BASES: The visualized lung bases are unremarkable. LIVER, GALLBLADDER, AND BILIARY TREE: The liver is normal in size, shape, and attenuation. No focal hepatic lesion or biliary ductal dilatation is present. The gallbladder is unremarkable with no evidence of radiopaque gallstones, gallbladder wall thickening, or obvious pericholecystic inflammatory changes. PANCREAS: Unremarkable. SPLEEN: Unremarkable. ADRENAL GLANDS: There is a 1.7 cm right adrenal nodule. On the noncontrast study this measures -2 Hounsfield units consistent with a lipid rich adrenal adenoma. On the postcontrast images this measures 52 Hounsfield units initially with 32 Hounsfield units on the delayed imaging. This appears similar in size to the prior CT scans dating back to at least 07/06/2014. The 10 year stability is consistent with a benign etiology as well. I do not appreciate any other adrenal nodularity. Left adrenal gland is grossly unremarkable KIDNEYS AND URETERS: The kidneys are normal in size, shape, and attenuation. Low-attenuation cortical cysts seen bilaterally. No further evaluation of these cysts would be needed. No hydronephrosis, hydroureter, or perinephric stranding. No calculi. GASTROINTESTINAL TRACT: The visualized small and large bowel are unremarkable. The appendix is unremarkable. ABDOMINAL WALL: No significant hernia is appreciated. LYMPHOVASCULAR STRUCTURES: No lymphadenopathy. The aorta is unremarkable. OSSEOUS STRUCTURES: Degenerative scoliotic changes to the spine again noted. CT/CT adrenal wo/w IV con IMPRESSION: 1.7 cm right adrenal nodule is stable in size from the prior studies dating back to at least 07/06/2014. On the noncontrast study this measures -2 Hounsfield units consistent with a lipid rich adrenal adenoma. The 10 year stability is consistent with a benign etiology as well.
[2023-09-03 09:13] LABS: Anion Gap 11 (12-20); Blood Urea Nitrogen 12 mg/dL (9-16); Calcium 9.4 mg/dL (8.4-10.2); Carbon Dioxide 30 mmol/L (22-29); Chloride 102 mmol/L (96-108); Estimated Glomerular Filt Rate > 60; Potassium 3.3 mmol/L (3.3-5.1); Sodium 140 mmol/L (135-145)
[2023-09-03] MEDS: iohexoL 350 MG/ML 75 ML INFUS..BTL 85 ML IV (10:04)
== END 2023-09-03 08:30 | disposition home or self-care (01) ==
LOC: HO.CT 08:29
PROVIDERS: PCP Internal Medicine; Visit Provider Internal Medicine Hypertension Specialist
DX: E26.9 Hyperaldosteronism, unspecified (principal); I10 Essential (primary) hypertension
CPT/HCPCS: 36415; 74170; 80051; 82310; 82565; 84520; Q9967

== ENCOUNTER 2023-09-20 11:37 | Outpatient (AMB) | payer OTHER, MEDICAID, SELFPAY ==
[2023-09-20 11:38] VITALS: BP 124/90; PULSE 80; O2SAT 97; BMI 27.2
--- NOTE | 2023-09-20 11:38 | HO.NEPHOV_ITS ---
HPI HPI Comments History of Present Illness Details Vincenzo is a middle-aged man with these hypertension for more than 15 years. He was diagnosed with hypertension in his early 30s. He since then has been on multiple anti hypertensive medication. Currently is on 2 antihypertensive medications including lisinopril. He is not on any diuretics. He has a history of hypokalemia the potassium 3.0 and mild alkalosis and hence this referral. Lisinopril was held for a week and PA/ PRA was elevated at 146 ! 09/20/23 Doing better K is 3.3 [facility] Medical History (Updated 08/29/23 @ 17:07 by Lily Bae MD) Insomnia Insomnia SOB (shortness of breath) History of anemia Colon cancer screening Contusion of left chest wall Cervical myofascial strain Left-sided headache Gallbladder polyp Hepatitis B core antibody positive Hydrocele Insomnia Vitamin D deficiency Allergic rhinitis Obstructive sleep apnea Surgical History History of esophagogastroduodenoscopy (EGD) Hx of colonoscopy Thoracolumbar back pain History of hydrocelectomy History of surgery Family History Father Hypertension Mother Hypertension Maternal Aunt Past heart attack Sister Brain aneurysm Social History Housing: House Alcohol intake: never Patient Tobacco Use Status: Never used Tobacco e-Cigarette/Vaping Use: Never Used Second Hand Smoke Exposure: Yes service: No Current occupational status: unemployed Cognitive needs: No Hearing needs: No Vision needs: Yes (reading glasses ) Vital Signs 09/20/23 11:38 Height 5 ft 7 in Weight 174 lb BMI 27.2 BP 124/90 H Blood Pressure Location Lt brachial Position Sitting Pulse 80 Pulse Source Pulse Oximeter Pulse Oximetry (%) 97 Oxygen Delivery Method Room Air Physical Exam Vital Signs: Last Vital Signs Pulse 80 09/20/23 11:38 BP 124/90 H 09/20/23 11:38 Pulse Ox 97 09/20/23 11:38 Oxygen Delivery Method Room Air 09/20/23 11:38 BMI result Body Mass Index 27.2 Const General: comfortable Nutritional Appearance: well nourished Orientation/consciousness: patient oriented x3 HEENT Head: No normal to inspection Mouth: moist mucous membranes Neck Neck: Yes supple and Yes no JVD Resp Auscultation: clear to auscultation bilaterally, no rales and rub present Cardio Jugular venous distension: no JVD Palpation: no palpable S3 and no palpable S4 Heart sounds: no rubs GI Palpation (GI): Soft to palpation and nontender Percussion: No Fluid wave present General: Yes no CVA tenderness Back/Spine/Pelvis Other: Severe scoliosis Back: no CVA tenderness Skin General skin exam: no rashes or lesions noted Neuro General: patient oriented x3 Extrem General: Yes no pedal edema and No clubbing Assessment & Plan Assessment & Plan (1) HTN (hypertension): Code(s): I10 - Essential (primary) hypertension Qualifiers: Hypertension type: essential hypertension Qualified Code(s): I10 - Essential (primary) hypertension (2) Hypokalemia: Code(s): E87.6 - Hypokalemia (3) Hyperaldosteronism: Code(s): E26.9 - Hyperaldosteronism, unspecified Plan Middle-aged man with longstanding hypertension who has mild hypokalemia with alkalosis. Currently is not on diuretics. He had a CT scan in 2021 which was reported as normal adrenal glands. PA/PRA was elevated at 146 after stopping Lisiniopril for 1 week Serum aldosterone was 27 suggestive of hyperaldosteronism. At the present time serum potassium is still low. Renal function stable. Blood pressure is well controlled. Repeat CT of the adrenals suggestive of ADENOMA REcommend adrenalectomy after lateralization Discussed He wants to discuss with his Will return to office with in 4 - 6 weeks Keep potassium chloride 20 mEq p.o. daily. Goal is to maintain serum potassium 3.5 millimoles Orders: Orders Basic Metabolic Panel 4 Weeks E26.9 - Hyperaldosteronism, unspecified, I10 - Essential (primary) hypertension Coding Level of Care Code Est Pt Level 4 (44899) Diagnoses Essential hypertension I10 Hypertension type: essential hypertension Hypokalemia E87.6 Hyperaldosteronism E26.9 Results Reviewed Nephrology Results: Hgb 13.1 g/dl (14.0-18.0) L 05/22/23 WBC 4.3 X10*3/uL (4.8-10.8) L 05/22/23 Plt Count 230 X10*3/uL (160-400) 05/22/23 Sodium 140 mmol/L (135-145) 09/03/23 Potassium 3.3 mmol/L (3.3-5.1) 09/03/23 Chloride 102 mmol/L (96-108) 09/03/23 Carbon Dioxide 30 mmol/L (22-29) H 09/03/23 BUN 12 mg/dL (9-16) 09/03/23 Creatinine 0.92 mg/dL (0.5-1.4) 09/03/23 Calcium 9.4 mg/dL (8.4-10.2) 09/03/23
== END 2023-09-20 12:04 | disposition home or self-care (01) ==
PROVIDERS: PCP Internal Medicine; Visit Provider Internal Medicine Hypertension Specialist
DX: I10 Essential (primary) hypertension (principal); E87.6 Hypokalemia; E26.9 Hyperaldosteronism, unspecified
CPT/HCPCS: 99214

== ENCOUNTER → 2023-09-20 11:37 | Outpatient (BNVA) | payer OTHER, MEDICAID, SELFPAY | PROVIDERS: PCP Internal Medicine; Visit Provider Internal Medicine Hypertension Specialist | DX: I10 Essential (primary) hypertension (principal); E87.6 Hypokalemia; E26.9 Hyperaldosteronism, unspecified | CPT/HCPCS: 99212 ==

== ENCOUNTER 2023-10-26 09:05 | Outpatient (REF) | payer OTHER, SELFPAY ==
[2023-10-26 11:15] LABS: Anion Gap 12 (12-20); Blood Urea Nitrogen 13 mg/dL (9-16); Calcium 9.5 mg/dL (8.4-10.2); Carbon Dioxide 29 mmol/L (22-29); Chloride 103 mmol/L (96-108); Estimated Glomerular Filt Rate > 60; Glucose Random 102 mg/dL (60-115); Potassium 3.2 mmol/L (3.3-5.1); Sodium 141 mmol/L (135-145)
== END 2023-10-26 09:06 | disposition home or self-care (01) ==
LOC: HO.LAB 09:05
PROVIDERS: PCP Internal Medicine; Visit Provider Internal Medicine Hypertension Specialist
DX: E87.6 Hypokalemia (principal)
CPT/HCPCS: 36415; 80048

== ENCOUNTER 2023-10-29 11:48 | Outpatient (AMB) | payer OTHER, MEDICAID, SELFPAY ==
--- NOTE | 2023-10-29 12:07 | MHC.OFFVIS ---
Intake Vital Signs 10/29/23 12:09 Height 5 ft 7 in Weight 172 lb 8 oz BMI 27.0 BP 122/100 H Blood Pressure Location Lt brachial Position Sitting Pulse 88 Pulse Source Pulse Oximeter Pulse Oximetry (%) 97 Oxygen Delivery Method Room Air Intake Visit Reasons: Hypertension At Home Independent Call Center Agent Required: No Accompanied by: Self / Same As Patient Allergies No Known Allergies Allergy (Verified 10/30/23 09:31) HPI HPI Comments History of Present Illness Details Vincenzo is a middle-aged man with these hypertension for more than 15 years. He was diagnosed with hypertension in his early 30s. He since then has been on multiple anti hypertensive medication. Currently is on 2 antihypertensive medications including lisinopril. He is not on any diuretics. He has a history of hypokalemia the potassium 3.0 and mild alkalosis and hence this referral. Lisinopril was held for a week and PA/ PRA was elevated at 146 ! 09/20/23 Doing better K is 3.3 PFS Medical History (Updated 10/30/23 @ 09:48 by Lily Bae MD) Insomnia Insomnia SOB (shortness of breath) History of anemia Colon cancer screening Contusion of left chest wall Cervical myofascial strain Left-sided headache Gallbladder polyp Hepatitis B core antibody positive Hydrocele Insomnia Vitamin D deficiency Allergic rhinitis Obstructive sleep apnea Surgical History History of esophagogastroduodenoscopy (EGD) Hx of colonoscopy Thoracolumbar back pain History of hydrocelectomy History of surgery Family History Father Hypertension Mother Hypertension Maternal Aunt Past heart attack Sister Brain aneurysm Social History Housing: House Alcohol intake: never Patient Tobacco Use Status: Never used Tobacco e-Cigarette/Vaping Use: Never Used Second Hand Smoke Exposure: Yes service: No Current occupational status: unemployed Cognitive needs: No Hearing needs: No Vision needs: Yes (reading glasses ) Physical Exam Vital Signs: Last Vital Signs Pulse 88 10/29/23 12:09 BP 122/100 H 10/29/23 12:09 Pulse Ox 97 10/29/23 12:09 Oxygen Delivery Method Room Air 10/29/23 12:09 BMI result Body Mass Index 27.0 Const General: comfortable Nutritional Appearance: well nourished Orientation/consciousness: patient oriented x3 HEENT Head: No normal to inspection Mouth: moist mucous membranes Neck Neck: Yes supple and Yes no JVD Resp Auscultation: clear to auscultation bilaterally, no rales and rub present Cardio Jugular venous distension: no JVD Palpation: no palpable S3 and no palpable S4 Heart sounds: no rubs GI Palpation (GI): Soft to palpation and nontender Percussion: No Fluid wave present General: Yes no CVA tenderness Back/Spine/Pelvis Other: Severe scoliosis Back: no CVA tenderness Skin General skin exam: no rashes or lesions noted Neuro General: patient oriented x3 Extrem General: Yes no pedal edema and No clubbing Assessment & Plan Assessment & Plan (1) Hyperaldosteronism: Comment: CT scan right adrenal nodule consistent with adenoma Code(s): E26.9 - Hyperaldosteronism, unspecified (2) HTN (hypertension): Code(s): I10 - Essential (primary) hypertension Qualifiers: Hypertension type: essential hypertension Qualified Code(s): I10 - Essential (primary) hypertension (3) Hypokalemia: Code(s): E87.6 - Hypokalemia Plan Middle-aged man with longstanding hypertension who has mild hypokalemia with alkalosis. Currently is not on diuretics. At the present time serum potassium is still low. Renal function stable. Blood pressure is well controlled. PA/PRA was elevated at 146 after stopping Lisiniopril for 1 week Serum aldosterone was 27 suggestive of hyperaldosteronism. He had a CT scan in 2021 which was reported as normal adrenal glands. Repeat CT of the adrenals suggestive of ADENOMA May need adrenalectomy after lateralization Will refer to for adrenal vein sampling Keep potassium chloride 20 mEq p.o. daily. Goal is to maintain serum potassium 3.5 millimoles Coding Level of Care Code Est Pt Level 3 (33977) Diagnoses Hyperaldosteronism E26.9 Essential hypertension I10 Hypertension type: essential hypertension Hypokalemia E87.6
[2023-10-29 12:09] VITALS: BP 122/100; PULSE 88; O2SAT 97; BMI 27.0
== END 2023-10-29 12:24 | disposition home or self-care (01) ==
PROVIDERS: PCP Internal Medicine; Visit Provider Internal Medicine Hypertension Specialist
DX: E26.9 Hyperaldosteronism, unspecified (principal); I10 Essential (primary) hypertension; E87.6 Hypokalemia
CPT/HCPCS: 99213

== ENCOUNTER → 2023-10-29 11:48 | Outpatient (BNVA) | payer OTHER, SELFPAY | PROVIDERS: PCP Internal Medicine; Visit Provider Internal Medicine Hypertension Specialist | DX: I10 Essential (primary) hypertension (principal); E87.6 Hypokalemia; E87.3 Alkalosis | CPT/HCPCS: 99212 ==

== ENCOUNTER 2023-10-30 09:27 | Outpatient (AMB) | payer OTHER, SELFPAY ==
[2023-10-30 09:31] VITALS: BP 138/88; PULSE 84; O2SAT 98; BMI 27.4
--- NOTE | 2023-10-30 09:31 | MHC.PC.OV ---
Vital Signs 10/30/23 09:31 Height 5 ft 7 in Weight 175 lb BMI 27.4 BP 138/88 Blood Pressure Location Lt brachial Position Sitting Pulse 84 Pulse Source Pulse Oximeter Pulse Oximetry (%) 98 Oxygen Delivery Method Room Air Intake Visit Reasons: 3 Month F/U Allergies No Known Allergies Allergy (Verified 10/30/23 09:31) Medication List - Last Reconciled 10/30/23 by Lily Bae MD amlodipine 10 mg PO DAILY 90 days ascorbate calcium (vitamin C) 500 mg PO DAILY cholecalciferol (vitamin D3) 50 mcg PO DAILY 90 days CPAP (CPAP Machine/Device) As directed auto PAP 6-16 cm H20 himidified air docusate sodium (Colace) 200 mg PO BEDTIME PRN ferrous sulfate (FeroSul) 325 mg PO DAILY fluticasone propionate 50 mcg/actuation (Flonase Allergy Relief) 2 sprays intranasal DAILY gabapentin 300 mg PO BEDTIME ibuprofen mg PO PRN lactulose 20 grams PO TID PRN lisinopril 40 mg PO DAILY multivitamin 1 tab PO DAILY oxycodone-acetaminophen 5-325 mg (Percocet) 1 tab PO TID PRN potassium chloride ER 20 mEq PO DAILY sennosides-docusate sodium 8.6-50 mg (Senna Plus) 2 tab-caps (2 x 8.6-50 mg) PO BEDTIME tramadol 50 mg PO DAILY zolpidem 5 mg PO BEDTIME PRN Tobacco use date assessed: 10/30/23 Dental Screening Dental Screen Date: 10/30/23 Did you have a dental visit in the last 12 months?: Yes Did you have a dental problem in the last 6 months where you did not have access to dental care?: No Was dental information given to patient?: Patient has dentist HPI 3 Month F/U HPI Details 48-year-old overweight male with severe scoliosis, obstructive sleep apnea hypertension hyper aldosteronism and insomnia coming in for follow-up. Last seen in July 2023 for physical exam. Patient's colonoscopy is up-to-date September 2022. Review of the notes patient has followed up with Nephrology 10/29/2023 workup regarding hyperaldosteronism lisinopril was held for a week and the PRA was elevated 146 patient was advised adrenalectomy. Advised to keep potassium chloride 20 mEq once a day patient had a CT scan done August 2023 showing right adrenal nodule 1.7 cm. Plan is to see Dr. Holliday and will check for this. seen [facility] but states was not happy to see him as the surgery was done [place]. uses CPAP sparingly due intolerance. with the SELINA was looking for an oral appliance. [facility] Medical History (Updated 10/30/23 @ 09:48 by Lily Bae MD) Insomnia Insomnia SOB (shortness of breath) History of anemia Colon cancer screening Contusion of left chest wall Cervical myofascial strain Left-sided headache Gallbladder polyp Hepatitis B core antibody positive Hydrocele Insomnia Vitamin D deficiency Allergic rhinitis Obstructive sleep apnea Surgical History History of esophagogastroduodenoscopy (EGD) Hx of colonoscopy Thoracolumbar back pain History of hydrocelectomy History of surgery Family History Father Hypertension Mother Hypertension Maternal Aunt Past heart attack Sister Brain aneurysm Social History Housing: House Alcohol intake: never Patient Tobacco Use Status: Never used Tobacco e-Cigarette/Vaping Use: Never Used Second Hand Smoke Exposure: Yes service: No Current occupational status: unemployed Cognitive needs: No Hearing needs: No Vision needs: Yes (reading glasses ) Questionnaire PHQ-9 Over the last 2 weeks, how often have you been bothered by any of the following problems? 1. Little interest or pleasure in doing things: not at all 2. Feeling down, depressed, or hopeless: not at all 3. Trouble falling or staying asleep, or sleeping too much: not at all 4. Feeling tired or having little energy: not at all 5. Poor appetite or overeating: not at all 6. Feeling bad about yourself - or that you are a failure or have let yourself or your family down: not at all 7. Trouble concentrating on things, such as reading the newspaper or watching television: not at all 8. Moving or speaking so slowly that other people could have noticed. Or the opposite - being so fidgety or restless that you have been moving around a lot more than usual: not at all 9. Thoughts that you would be better off or of hurting yourself in some way: not at all Total score: 0 Depression Screening Interpretation: Negative Depression Screening Done: Yes Source: Developed by Drs. Igor Sheehan, Perri Robin, Bakari Olivarez and colleagues, with an educational daniele from [employer]. Thrive Questionnaire Date Thrive assessed: 10/30/23 I am a: Patient What is your living situation today?: I have a steady place to live Within the past 12 months, did the food you bought not last and you didn't have the money to get more?: Never true Within the past 12 months, did you worry whether your food would run out before you got money to buy more?: Never true Do you have trouble paying for medicines?: No Do you have trouble getting transportation to medical appointments?: No Do you have trouble paying your heating and electricity bill?: No Do you have trouble taking care of your child, family member or friend?: No Do you have trouble with day-to-day activities such as bathing, preparing meals, shopping, managing finances, etc.?: No Are you currently unemployed and looking for a job?: No Are you interested in more education?: No Currently or been in a relationship where the following occur: no concerns reported THRIVE Score: 0 AUDIT C Alcohol Use Questionnaire (AUDIT-C) 1. How often do you have a drink containing alcohol?: Never 3. How often do you have six or more drinks on one occasion?: Never Total Score: 0 AMISH-7 AMB Questionnaire AMISH-7 Date AMISH - 7 assessed: 10/30/23 Feeling nervous, anxious, or on edge: 0 = Not at all Not being able to stop or control worryin = Not at all Worrying too much about different things: 0 = Not at all Trouble relaxin = Not at all Being so restless that it is hard to sit still: 0 = Not at all Becoming easily annoyed or irritable: 0 = Not at all Feeling afraid as if something awful might happen: 0 = Not at all Total AMISH-7 score (0-4 normal; 5-9 mild; 10-14 moderate; 15-21 severe): 0 Source: Developed by Perri Day Kurt Kroenke and colleagues, with an educational daniele from [employer]. Physical exam (Primary Care) Vital Signs: Last Vital Signs Pulse 84 10/30/23 09:31 BP 138/88 10/30/23 09:31 Pulse Ox 98 10/30/23 09:31 Oxygen Delivery Method Room Air 10/30/23 09:31 BMI result Body Mass Index 27.4 Tobacco/Smoking Status: Tobacco use Status Tobacco use date assessed 10/30/23 10/30/23 09:36 Patient Tobacco Use Status Never used Tobacco 10/30/23 09:36 e-Cigarette/Vaping Use Never Used 10/30/23 09:36 PHQ-9: PHQ-9 Score PHQ-9: Total score 0 10/30/23 09:36 Depression Screening Interpretation: Negative Thrive Assessment: Date of Thrive Assessment Date Thrive assessed 10/30/23 10/30/23 09:36 Currently or been in a relationship where the following occur: no concerns reported Const General: alert; No acute distress Eyes Conjunctivae: conjunctivae normal Resp Auscultation: clear to auscultation bilaterally Cardio Rate: regular rate Rhythm: regular rhythm GI Inspection: Yes normal to inspection Extrem General: Yes normal to inspection and No edema Assessment and Plan Assessment & Plan (1) Hyperaldosteronism: Comment: CT scan right adrenal nodule consistent with adenoma Code(s): E26.9 - Hyperaldosteronism, unspecified Plan: Patient has been follow-up with Nephrology and has advised adrenalectomy. Planned meeting with another physician Dr. Holliday- awaiting call (2) HTN (hypertension): Code(s): I10 - Essential (primary) hypertension Qualifiers: Hypertension type: essential hypertension Qualified Code(s): I10 - Essential (primary) hypertension Plan: Continue with blood pressure medication. Decrease salt intake and exercise presently on amlodipine 10 mg once a day lisinopril 40 mg once a day (3) Scoliosis: Comment: 2013 back surgery [facility] Status post hardware removalprosthetic joint fusion of spine of thoracolumbar region surgery 11/09/2021 removal of thoracolumbar spine implants left and right sides posterior bilateral surgeon Dr. Yojana Verduzco Code(s): M41.9 - Scoliosis, unspecified Qualifiers: Scoliosis type: idiopathic Idiopathic scoliosis type: other Spinal region: thoracolumbar Qualified Code(s): M41.25 - Other idiopathic scoliosis, thoracolumbar region Plan: Patient is still continues to follow-up with orthopedics (4) Anemia: Comment: Iron deficient Code(s): D64.9 - Anemia, unspecified Qualifiers: Anemia type: unspecified type Qualified Code(s): D64.9 - Anemia, unspecified Plan: Stable continue to monitor (5) Hypokalemia: Code(s): E87.6 - Hypokalemia Plan: Part of the adrenal problem hyperaldosteronism, advise to continue with potassium supplement (6) Generalized anxiety disorder: Code(s): F41.1 - Generalized anxiety disorder Plan: Continuing to monitor (7) Obstructive sleep apnea: Comment: Mild December 2017, cannot tolerate CPAP, moderately severe December 2021 Code(s): G47.33 - Obstructive sleep apnea (adult) (pediatric) Plan: Patient can not tolerate the CPAP. Medications: New cholecalciferol (vitamin D3) 50 mcg PO DAILY 90 days 90 caps 3RF E55.9 - Vitamin D deficiency, unspecified multivitamin 1 tab PO DAILY 90 tabs 2RF Changed From ascorbate calcium (vitamin C) 500 mg PO DAILY PRN D50.9 - Iron deficiency anemia, unspecified To ascorbate calcium (vitamin C) 500 mg PO DAILY 90 tabs 1RF D50.9 - Iron deficiency anemia, unspecified Refilled tramadol 50 mg PO DAILY 30 tabs 0RF R06.02 - Shortness of breath Coding Level of Care Code Est Pt Level 4 (15429) Diagnoses Hyperaldosteronism E26.9 Essential hypertension I10 Hypertension type: essential hypertension Other idiopathic scoliosis, thoracolumbar region M41.25 Scoliosis type: idiopathic Idiopathic scoliosis type: other Spinal region: thoracolumbar Anemia, unspecified type D64.9 Anemia type: unspecified type Hypokalemia E87.6 Generalized anxiety disorder F41.1 Obstructive sleep apnea G47.33 Additional Codes PHQ-9 - 54779 - PHQ-9 Billing: ([id number])
== END 2023-10-30 10:08 | disposition home or self-care (01) ==
PROVIDERS: PCP Internal Medicine; Visit Provider Internal Medicine
DX: I10 Essential (primary) hypertension (principal); E26.9 Hyperaldosteronism, unspecified; M41.25 Other idiopathic scoliosis, thoracolumbar region; D64.9 Anemia, unspecified; E87.6 Hypokalemia; F41.1 Generalized anxiety disorder; G47.33 Obstructive sleep apnea (adult) (pediatric)
CPT/HCPCS: 99214

== ENCOUNTER 2024-01-03 11:45 | Day surgery (SDC) | payer OTHER, SELFPAY ==
[2024-01-03] VITALS (9 sets, daily range): BP systolic 124–140; BP diastolic 79–96; PULSE 58–75; RESP 16–21; TEMP 36.7–37.2; O2SAT 98–100
--- NOTE | ~2024-01-03 | IR_ITS ---
History: Hypokalemia; hypertension Procedures performed: 1. Ultrasound-guided catheterization of the bilateral common femoral veins 2. Catheterization of the left renal vein from the right femoral access with selective sonography 3. Catheterization of the left adrenal vein from the right femoral access with selective sonography 4. Inadvertent catheterization of an accessory hepatic vein (first order) from the left femoral vein access with selective venography 5. Inferior vena cava venography 6. Catheterization of the right adrenal vein from the left femoral vein access with selective venography 7. Multiple time interval venous sampling of the bilateral adrenal veins and peripherally within the inferior vena cava Physician: Ford Ma MD FSIR Anesthesia: IV moderate sedation with intravenous fentanyl and Versed was administered under my direct supervision with continuous physiologic monitoring for a total of 75 minutes. Specimen: Specimens were obtained from three locations (right adrenal vein, left adrenal vein, and peripherally from IVC) at the following times. 5 min pre ACTH administration (1435 hours) 0 min (at ACTH administration) (1440 hours) 20 min post ACTH administration (1500 hours) 40 min post ACTH administration (1520 hours)* * A single additional specimen was obtained from the right adrenal gland at 40 min post ACTH administration (1520 hours). Drain: None EBL: None Complications: None Procedure in detail: Informed and written consent was obtained and placed in the patient's chart. The patient was positioned supine on the angiography table with sterile preparation of both groins. In a sequential fashion, ultrasound-guided catheterization of the bilateral femoral veins was obtained with a micropuncture set. Ultrasound with permanent recordings and direct visualization of needle entry into the vein was obtained at both sides. We placed a 6 Turkish x 45 cm sheath on the right and a 6 Turkish x 25 cm sheath on the left. From the right femoral sheath, we catheterized the left renal vein with Sos 2 catheter. Selective venography showed normal anatomy of the left renal vein and the trunk of the phrenic vein and left adrenal vein. We catheterized the left adrenal vein with a hockey-stick catheter and Glidewire with selective sonography showing normal anatomy and good positioning of the catheter for sampling. From the left femoral sheath, the tip of which was positioned in the lower portion of the inferior vena cava, we obtained catheterization of the right adrenal vein. We used both a Cobra 2 and a Kemal catheter. Catheterization of the right adrenal vein was difficult. In our attempts to find it, we did catheterize an accessory hepatic vein first. Venography within the inferior vena cava showed normal anatomy and ultimately we identified the right adrenal vein, successfully catheterizing it and demonstrating normal anatomy on venography. We found that both with the Cobra catheter and the Mikelson catheter that the catheter was very unstable and simple respiration of the patient would disengage the catheter. Nonetheless, it appeared to be more stable with use of the Kemal catheter. Venous sampling was then obtained from the bilateral adrenal veins and the left femoral sheath (the tip of which was in the inferior vena cava) for a control specimen. Specimens were obtained at 5 minutes prior to ACTH administration, at the time of ACTH administration, and at 20 and 40 minutes post ACTH administration. The specimens were sent to laboratory for aldosterone and cortisol sampling. We obtained a single additional specimen from the right adrenal vein at 40 minutes post ACTH administration. Based upon catheter stability, we felt that the most reliable samples from the right adrenal vein will be the 20 minute post-ACTH and 40 minute post-ACTH samples. The least reliable would be the 5 minute pre-ACTH from the right adrenal vein as the catheter continued to disengage at this time sampling. All of the specimens from the left adrenal vein should be accurate. Real-time cortisol sampling was not available to us to confirm catheter position during the study, but hopefully with multiple samples obtained we will have a diagnostic study. The results are pending. The catheters were removed from the adrenal veins prior to removing the sheath and hemostasis easily obtained at both groins with manual pressure alone. Sterile dressings were applied each groin. The patient tolerated the procedure well. Summary: Successful bilateral adrenal vein sampling as described above.
[2024-01-03 17:02] LABS: Cortisol Random 13.9 ug/dL
[2024-01-03 17:04] LABS: Cortisol Random 17.7 ug/dL
[2024-01-03 17:05] LABS: Cortisol Random 6.9 ug/dL
[2024-01-03 17:05] LABS: Cortisol Random 12.4 ug/dL
[2024-01-03 17:06] LABS: Cortisol Random 13.6 ug/dL; Cortisol Random 18.8 ug/dL
[2024-01-03 17:07] LABS: Cortisol Random 8.8 ug/dL
[2024-01-03 17:55] LABS: Cortisol Random > 239.2 ug/dL
[2024-01-03 17:58] LABS: Cortisol Random > 239.2 ug/dL
[2024-01-03 17:59] LABS: Cortisol Random > 239.2 ug/dL
[2024-01-03 18:00] LABS: Cortisol Random > 239.2 ug/dL
== END 2024-01-03 18:00 | disposition home or self-care (01) ==
PROVIDERS: Physician Assistant Surgical; Radiology Vascular & Interventional Radiology; PCP Internal Medicine; Visit Provider Internal Medicine Hypertension Specialist
DX: E87.6 Hypokalemia (principal); I10 Essential (primary) hypertension; E26.9 Hyperaldosteronism, unspecified; Z79.899 Other long term (current) drug therapy
CPT/HCPCS: 36012; 36415; 36500; 75893; 82088; 82533; A4364; C1769; C1887; C1894; J0834; J1644; J2250; J2310; J3010; Q9967

== ENCOUNTER → 2024-01-03 15:30 | Outpatient (BNV) | payer OTHER, SELFPAY | PROVIDERS: PCP Internal Medicine; Visit Provider Radiology Vascular & Interventional Radiology | DX: E87.6 Hypokalemia (principal); I10 Essential (primary) hypertension | CPT/HCPCS: 36011; 36012; 75825; 75831; 76937; 99152 ==

== ENCOUNTER 2024-02-01 10:42 | Outpatient (AMB) | payer OTHER, SELFPAY ==
--- NOTE | 2024-02-01 10:44 | HO.NEPHOV ---
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 Accompanied by: Spouse Allergies No Known Allergies Allergy (Verified 03/26/24 09:09) Medication List - Last Reconciled 02/01/24 by Nikolai Michel MD amlodipine 10 mg PO DAILY 90 days ascorbate calcium (vitamin C) 500 mg PO DAILY cholecalciferol (vitamin D3) 50 mcg PO DAILY 90 days CPAP (CPAP Machine/Device) As directed auto PAP 6-16 cm H20 himidified air docusate sodium (Colace) 200 mg PO BEDTIME PRN ferrous sulfate (FeroSul) 325 mg PO DAILY fluticasone propionate 50 mcg/actuation (Flonase Allergy Relief) 2 sprays intranasal DAILY gabapentin 300 mg PO BEDTIME ibuprofen mg PO PRN lactulose 20 grams PO TID PRN lisinopril 40 mg PO DAILY multivitamin 1 tab PO DAILY oxycodone-acetaminophen 5-325 mg (Percocet) 1 tab PO TID PRN potassium chloride ER 20 mEq PO DAILY sennosides-docusate sodium 8.6-50 mg (Senna Plus) 2 tab-caps (2 x 8.6-50 mg) PO BEDTIME tramadol 50 mg PO DAILY zolpidem 5 mg PO BEDTIME PRN HPI Comments Details: Vincenzo is a middle-aged man with these hypertension for more than 15 years. He was diagnosed with hypertension in his early 30s. He since then has been on multiple anti hypertensive medication. Currently is on 2 antihypertensive medications including lisinopril. He is not on any diuretics. He has a history of hypokalemia the potassium 3.0 and mild alkalosis and hence this referral. Lisinopril was held for a week and PA/ PRA was elevated at 146 ! 09/20/23 Doing better K is 3.3 [facility] Medical History Insomnia Insomnia SOB (shortness of breath) History of anemia Colon cancer screening Contusion of left chest wall Cervical myofascial strain Left-sided headache Gallbladder polyp Hepatitis B core antibody positive Hydrocele Insomnia Vitamin D deficiency Allergic rhinitis Obstructive sleep apnea Surgical History History of esophagogastroduodenoscopy (EGD) Hx of colonoscopy Thoracolumbar back pain History of hydrocelectomy History of surgery Family History Father Hypertension Mother Hypertension Maternal Aunt Past heart attack Sister Brain aneurysm Social History Housing: House Alcohol intake: never Patient Tobacco Use Status: Never used Tobacco e-Cigarette/Vaping Use: Never Used Second Hand Smoke Exposure: Yes service: No Current occupational status: unemployed Cognitive needs: No Hearing needs: No Vision needs: Yes (reading glasses ) Physical Exam Vital Signs: Last Vital Signs Pulse 83 02/01/24 10:45 BP 120/84 02/01/24 10:45 Pulse Ox 94 02/01/24 10:45 Oxygen Delivery Method Room Air 02/01/24 10:45 BMI result Body Mass Index 26.5 Results Reviewed Nephrology Results: Sodium 141 mmol/L (135-145) 02/01/24 Potassium 3.3 mmol/L (3.3-5.1) 02/01/24 Chloride 101 mmol/L (96-108) 02/01/24 Carbon Dioxide 29 mmol/L (22-29) 02/01/24 BUN 13 mg/dL (9-16) 02/01/24 Creatinine 0.96 mg/dL (0.5-1.4) 02/01/24 Calcium 9.8 mg/dL (8.4-10.2) 02/01/24 Assessment & Plan Assessment & Plan (1) Hyperaldosteronism: Comment: CT scan right adrenal nodule consistent with adenoma Code(s): E26.9 - Hyperaldosteronism, unspecified Category: Medical (2) HTN (hypertension): Code(s): I10 - Essential (primary) hypertension Category: Medical Qualifiers: Hypertension type: essential hypertension Qualified Code(s): I10 - Essential (primary) hypertension (3) Hypokalemia: Code(s): E87.6 - Hypokalemia Category: Medical Plan Middle-aged man with longstanding hypertension who has mild hypokalemia with alkalosis. Currently is not on diuretics. At the present time serum potassium is still low. Renal function stable. Blood pressure is well controlled. PA/PRA was elevated at 146 after stopping Lisiniopril for 1 week Serum aldosterone was 27 suggestive of hyperaldosteronism. He had a CT scan in 2021 which was reported as normal adrenal glands. Repeat CT of the adrenals suggestive of ADENOMA UNderwent adrenal vein sampling No clear lateralization Needs follow up CT in 3 months Keep potassium chloride 20 mEq p.o. daily. Goal is to maintain serum potassium 3.5 millimoles Orders: Orders Basic Metabolic Panel 02/01/24 E26.9 - Hyperaldosteronism, unspecified CT abdomen pelvis w IV con 1 Month E26.9 - Hyperaldosteronism, unspecified Medications: Refilled gabapentin 300 mg PO BEDTIME 90 caps 2RF M54.5 - Low back pain, M54.6 - Pain in thoracic spine, S16.1XXA - Strain of muscle, fascia and tendon at neck level, initial encounter Coding Level of Care Code Est Pt Level 4 (36530) Diagnoses Hyperaldosteronism E26.9 Essential hypertension I10 Hypertension type: essential hypertension Hypokalemia E87.6
[2024-02-01 10:45] VITALS: BP 120/84; PULSE 83; O2SAT 94; BMI 26.5
== END 2024-02-01 11:07 | disposition home or self-care (01) ==
PROVIDERS: PCP Internal Medicine; Visit Provider Internal Medicine Hypertension Specialist
DX: E26.9 Hyperaldosteronism, unspecified (principal); I10 Essential (primary) hypertension; E87.6 Hypokalemia
CPT/HCPCS: 99499

== ENCOUNTER → 2024-02-01 10:42 | Outpatient (BNVA) | payer OTHER, SELFPAY | PROVIDERS: PCP Internal Medicine; Visit Provider Internal Medicine Hypertension Specialist ==

== ENCOUNTER 2024-02-01 11:21 | Outpatient (REF) | payer OTHER, SELFPAY ==
[2024-02-01 13:56] LABS: Anion Gap 14 (12-20); Blood Urea Nitrogen 13 mg/dL (9-16); Calcium 9.8 mg/dL (8.4-10.2); Carbon Dioxide 29 mmol/L (22-29); Chloride 101 mmol/L (96-108); Estimated Glomerular Filt Rate > 60; Glucose Random 104 mg/dL (60-115); Potassium 3.3 mmol/L (3.3-5.1); Sodium 141 mmol/L (135-145)
== END 2024-02-01 11:22 | disposition home or self-care (01) ==
LOC: HO.10HDL 11:21
PROVIDERS: Visit Provider Internal Medicine Hypertension Specialist
DX: E26.9 Hyperaldosteronism, unspecified (principal)
CPT/HCPCS: 36415; 80048

== ENCOUNTER 2024-03-11 09:22 | Outpatient (AMB) | payer OTHER, SELFPAY ==
[2024-03-11 09:25] VITALS: BP 110/80; PULSE 91; O2SAT 96
--- NOTE | 2024-03-11 09:25 | A.OFFPC_ITS ---
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 Accompanied by: Self / Same As Patient Allergies No Known Allergies Allergy (Verified 03/11/24 09:25) Tobacco use date assessed: 03/11/24 Dental Screening Dental Screen Date: 03/11/24 Did you have a dental visit in the last 12 months?: Yes Did you have a dental problem in the last 6 months where you did not have access to dental care?: No Was dental information given to patient?: Patient has dentist HPI hyperaldosteronism, HTN HPI Details 48-year-old male with hyper aldosteronis m hypertension severe scoliosis generalized anxiety disorder anemia coming in for follow-up last seen in October 2023. Patient was advised adrenalectomy and was referred to another physician. 07/11/2024 nephrology follow-up CT scan of the abdomen and pelvis requested for the right adrenal nodule. Patient has also seen Neurology for the obstructive sleep apnea and chronic insomnia was given a sample of the P 30 I nasal pillows with chin strap counseled on cognitive behavioral therapy interventions patient was given a nasal spray for nasal congestion FOR[facility]LY [facility], [facility] Medical History (Updated 03/11/24 @ 10:06 by Lily Bae MD) Insomnia Insomnia SOB (shortness of breath) History of anemia Colon cancer screening Contusion of left chest wall Cervical myofascial strain Left-sided headache Gallbladder polyp Hepatitis B core antibody positive Hydrocele Insomnia Vitamin D deficiency Allergic rhinitis Obstructive sleep apnea Surgical History History of esophagogastroduodenoscopy (EGD) Hx of colonoscopy Thoracolumbar back pain History of hydrocelectomy History of surgery Family History Father Hypertension Mother Hypertension Maternal Aunt Past heart attack Sister Brain aneurysm Social History Housing: House Alcohol intake: never Patient Tobacco Use Status: Never used Tobacco e-Cigarette/Vaping Use: Never Used Second Hand Smoke Exposure: Yes service: No Current occupational status: unemployed Cognitive needs: No Hearing needs: No Vision needs: Yes (reading glasses ) Questionnaire PHQ-9 Over the last 2 weeks, how often have you been bothered by any of the following problems? 1. Little interest or pleasure in doing things: not at all 2. Feeling down, depressed, or hopeless: not at all 3. Trouble falling or staying asleep, or sleeping too much: not at all 4. Feeling tired or having little energy: not at all 5. Poor appetite or overeating: not at all 6. Feeling bad about yourself - or that you are a failure or have let yourself o r your family down: not at all 7. Trouble concentrating on things, such as reading the newspaper or watching television: not at all 8. Moving or speaking so slowly that other people could have noticed. Or the opposite - being so fidgety or restless that you have been moving around a lot more than usual: not at all 9. Thoughts that you would be better off or of hurting yourself in some way: not at all Total score: 0 Depression Screening Interpretation: Negative Depression Screening Done: Yes Source: Developed by Drs. Igor Sheehan, Perri Robin, Bakari Olivarez and colleagues, with an educational daniele from [employer]. Thrive Questionnaire Date Thrive assessed: 03/11/24 I am a: Patient What is your living situation today?: I have a steady place to live Within the past 12 months, did the food you bought not last and you didn't have the money to get more?: Never true Within the past 12 months, did you worry whether your food would run out before you got money to buy more?: Never true Do you have trouble paying for medicines?: No Do you have trouble getting transportation to medical appointments?: No Do you have trouble paying your heating and electricity bill?: No Do you have trouble taking care of your child, family member or friend?: No Do you have trouble with day-to-day activities such as bathing, preparing meals, shopping, managing finances, etc.?: No Are you currently unemployed and looking for a job?: No Are you interested in more education?: No Please select the resources that you would like help with: None Currently or been in a relationship where the following occur: No concerns reported THRIVE Score: 0 AUDIT C Alcohol Use Questionnaire (AUDIT-C) 1. How often do you have a drink containing alcohol?: Never 3. How often do you have six or more drinks on one occasion?: Never Total Score: 0 AMISH-7 AMB Questionnaire AMISH-7 Date AMISH - 7 assessed: 03/11/24 Feeling nervous, anxious, or on edge: 0 = Not at all Not being able to stop or control worryin = Not at all Worrying too much about different things: 0 = Not at all Trouble relaxin = Not at all Being so restless that it is hard to sit still: 0 = Not at all Becoming easily annoyed or irritable: 0 = Not at all Feeling afraid as if something awful might happen: 0 = Not at all Total AMISH-7 score (0-4 normal; 5-9 mild; 10-14 moderate; 15-21 severe): 0 Source: Developed by Drs. Igor Sheehan, Perri Robin, Bakari Olivarez and colleagues, with an educational daniele from [employer]. Physical exam (Primary Care) Vital Signs: Last Vital Signs Pulse 91 03/11/24 09:25 BP 110/80 03/11/24 09:25 Pulse Ox 96 03/11/24 09:25 Oxygen Delivery Method Room Air 03/11/24 09:25 Tobacco/Smoking Status: Tobacco use Status Tobacco use date assessed 03/11/24 03/11/24 09:27 Patient Tobacco Use Status Never used Tobacco 03/11/24 09:27 e-Cigarette/Vaping Use Never Used 03/11/24 09:27 PHQ-9: PHQ-9 Score PHQ-9: Total score 0 03/11/24 09:27 Depression Screening Interpretation: Negative Thrive Assessment: Date of Thrive Assessment Date Thrive assessed 03/11/24 03/11/24 09:27 Currently or been in a relationship where the following occur: No concerns reported Const General: alert; No acute distress Eyes Conjunctivae: conjunctivae normal Resp Auscultation: clear to auscultation bilaterally Cardio Rate: regular rate Rhythm: regular rhythm GI Inspection: Yes normal to inspection Extrem General: Yes normal to inspection and No edema Assessment and Plan Assessment & Plan (1) Hyperaldosteronism: Comment: CT scan right adrenal nodule consistent with adenoma Code(s): E26.9 - Hyperaldosteronism, unspecified Plan: Patient is being followed up by Nephrology and has been advised to repeat CT scan. patient has had adrenal vein sampling done 12/2023 (2) HTN (hypertension): Code(s): I10 - Essential (primary) hypertension Qualifiers: Hypertension type: essential hypertension Qualified Code(s): I10 - Essential (primary) hypertension Plan: Continue with blood pressure medication. Decrease salt intake and exercise takes amlodipine 10 mg once a day lisinopril 40 mg once a day (3) Scoliosis: Comment: 2013 back surgery [place] Status post hardware removalprosthetic joint fusion of spine of thoracolumbar region surgery 11/09/2021 removal of thoracolumbar spine implants left and right sides posterior bilateral surgeon Dr. Yojana Verduzco [place]- Code(s): M41.9 - Scoliosis, unspecified Qualifiers: Scoliosis type: idiopathic Idiopathic scoliosis type: other Spinal region: thoracolumbar Qualified Code(s): M41.25 - Other idiopathic scoliosis, thoracolumbar region Plan: discussed about pain management. Refill of tramadol done (4) Anemia: Comment: Iron deficient Code(s): D64.9 - Anemia, unspecified Qualifiers: Anemia type: unspecified type Qualified Code(s): D64.9 - Anemia, unspecified Plan: Stable (5) Obstructive sleep apnea: Comment: Mild December 2017, cannot tolerate CPAP, moderately severe December 2021 Code(s): G47.33 - Obstructive sleep apnea (adult) (pediatric) Plan: Patient has seen Neurology and has been given a trial of a different mask. states not able to uses regular, 4-5 x a week patient is still not able to tolerate Medications: Refilled tramadol 50 mg PO DAILY 30 tabs 0RF R06.02 - Shortness of breath Coding Level of Care Code Est Pt Level 4 (05245) Diagnoses Hyperaldosteronism E26.9 Essential hypertension I10 Hypertension type: essential hypertension Other idiopathic scoliosis, thoracolumbar region M41.25 Scoliosis type: idiopathic Idiopathic scoliosis type: other Spinal region: thoracolumbar Anemia, unspecified type D64.9 Anemia type: unspecified type Obstructive sleep apnea G47.33 Additional Codes PHQ-9 - 91574 - PHQ-9 Billing: ([id number])
== END 2024-03-11 11:19 | disposition home or self-care (01) ==
PROVIDERS: PCP Internal Medicine; Visit Provider Internal Medicine
DX: E26.9 Hyperaldosteronism, unspecified (principal); I10 Essential (primary) hypertension; M41.25 Other idiopathic scoliosis, thoracolumbar region; D64.9 Anemia, unspecified; G47.33 Obstructive sleep apnea (adult) (pediatric)
CPT/HCPCS: 99214

== ENCOUNTER 2024-03-26 09:06 | Outpatient (AMB) | payer OTHER, SELFPAY ==
--- NOTE | 2024-03-26 09:09 | MHC.OFFVIS ---
Vital Signs 03/26/24 09:10 Height 5 ft 7 in Weight 171 lb 8 oz BMI 26.9 BP 122/66 Blood Pressure Location Rt brachial Position Sitting Respiration 16 Pulse 79 Pulse Source Pulse Oximeter Pulse Oximetry (%) 96 Oxygen Delivery Method Room Air Intake Visit Reasons: 4 mnts f/u for sleep Intake Note: Pt presents to the office for 9 month follow up for SELINA. 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 Patient' compliance has improved since his last visit The CPAP compliance report and therapy response (12/22/23-03/20/24 reviewed with the patient. Pt is on APAP [id number]. Usage days 73% and average usage hours 3hours 40 min. The max pressure is 12 and the residual AHI was 1.5/hr. [facility] Medical History Insomnia Insomnia SOB (shortness of breath) History of anemia Colon cancer screening Contusion of left chest wall Cervical myofascial strain Left-sided headache Gallbladder polyp Hepatitis B core antibody positive Hydrocele Insomnia Vitamin D deficiency Allergic rhinitis Obstructive sleep apnea Surgical History History of esophagogastroduodenoscopy (EGD) Hx of colonoscopy Thoracolumbar back pain History of hydrocelectomy History of surgery Family History Father Hypertension Mother Hypertension Maternal Aunt Past heart attack Sister Brain aneurysm Social History Housing: House Alcohol intake: never Patient Tobacco Use Status: Never used Tobacco e-Cigarette/Vaping Use: Never Used Second Hand Smoke Exposure: Yes service: No Current occupational status: unemployed Cognitive needs: No Hearing needs: No Vision needs: Yes (reading glasses ) Review of Systems ENT Reports Normal hearing present Neuro Reports Normal hearing present Physical Exam Vital Signs: Last Vital Signs Pulse 79 03/26/24 09:10 Resp 16 03/26/24 09:10 BP 122/66 03/26/24 09:10 Pulse Ox 96 03/26/24 09:10 Oxygen Delivery Method Room Air 03/26/24 09:10 BMI result Body Mass Index 26.9 Const General: cooperative Nutritional Appearance: average body habitus Orientation/consciousness: patient oriented x3 HEENT Throat: Yes other (mallampati grade 4) Neck Other: Limited ROM due to neck pain. Resp Effort & Inspection: normal respiratory effort and able to speak in complete sentences Neuro General: patient oriented x3 and moves all extremities Cranial nerves: Yes Bilaterally intact EOM present, Yes Normal facial strength present, Yes Midline tongue present, Yes Symmetric palate elevation present, Yes Normal hearing present, Yes Ability to bilaterally rotate head present and Yes Ability to bilaterally elevate shoulders present Cognition (Neuro): normal cognition Gait exam (Neuro): Antalgic gait present Results Reviewed Results Reviewed: Home SLeep study -12/2021 AHI 20 O2 lauren 80% Assessment & Plan Assessment & Plan (1) Obstructive sleep apnea: Comment: AHI 20 O2 lauren 80% Code(s): G47.33 - Obstructive sleep apnea (adult) (pediatric) Category: Medical Plan Discussed compliance and acclimatization tips in detail If he is unable to increase his CPAP hours i will refer him for DISE evaluation for [facility]SPIRE. Patient understands the fci effects of untreated sleep apnea and wants to use his CPAP Coding Level of Care Code Est Pt Level 4 (79595) Diagnoses Obstructive sleep apnea G47.33
[2024-03-26 09:10] VITALS: BP 122/66; PULSE 79; RESP 16; O2SAT 96; BMI 26.9
== END 2024-03-26 09:46 | disposition home or self-care (01) ==
PROVIDERS: PCP Internal Medicine; Visit Provider Psychiatry & Neurology Neurology
DX: G47.33 Obstructive sleep apnea (adult) (pediatric) (principal)
CPT/HCPCS: 99214

== ENCOUNTER → 2024-03-26 09:06 | Outpatient (BNVA) | payer OTHER, SELFPAY | PROVIDERS: PCP Internal Medicine; Visit Provider Psychiatry & Neurology Neurology | DX: G47.33 Obstructive sleep apnea (adult) (pediatric) (principal) | CPT/HCPCS: 99212 ==

== ENCOUNTER 2024-06-11 07:45 | Outpatient (AMB) | payer OTHER, SELFPAY ==
[2024-06-11 08:01] VITALS: BP 130/86; PULSE 69; O2SAT 95; BMI 26.9
--- NOTE | 2024-06-11 08:01 | A.OFFPC_ITS ---
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 Allergies No Known Allergies Allergy (Verified 06/11/24 08:01) Medication List - Last Reconciled 06/11/24 by Rubi Aguilar PA-C amlodipine 10 mg PO DAILY 90 days ascorbate calcium (vitamin C) 500 mg PO DAILY cholecalciferol (vitamin D3) 50 mcg PO DAILY 90 days CPAP (CPAP Machine/Device) As directed auto PAP 6-16 cm H20 himidified air docusate sodium (Colace) 200 mg PO BEDTIME PRN ferrous sulfate (FeroSul) 325 mg PO DAILY fluticasone propionate 50 mcg/actuation (Flonase Allergy Relief) 2 sprays intranasal DAILY gabapentin 300 mg PO BEDTIME ibuprofen mg PO PRN lactulose 20 grams PO TID PRN lisinopril 40 mg PO DAILY multivitamin 1 tab PO DAILY potassium chloride ER 20 mEq PO DAILY sennosides-docusate sodium 8.6-50 mg (Senna Plus) 2 tab-caps (2 x 8.6-50 mg) PO BEDTIME tramadol 50 mg PO DAILY zolpidem 5 mg PO BEDTIME PRN Tobacco use date assessed: 03/11/24 Dental Screening Dental Screen Date: 03/11/24 HPI 3 M/o F/U HPI Details 48-year-old male with hyper aldosteronis m hypertension severe scoliosis generalized anxiety disorder anemia coming in for follow-up last seen in February [address] Bae.?In review of the notes, patient was seen by Neurology 03/26/2024 for obstructive sleep apnea strongly advised to continue on CPAP. Patient is requesting a refill on his pain medications. He has been using the CPAP as he can tolerate it at this time which is typically 2-4 hours per night. He does mentioned occasional tightness when taking a deep breath which he attributes to his scoliosis. [facility] Medical History Insomnia Insomnia SOB (shortness of breath) History of anemia Colon cancer screening Contusion of left chest wall Cervical myofascial strain Left-sided headache Gallbladder polyp Hepatitis B core antibody positive Hydrocele Insomnia Vitamin D deficiency Allergic rhinitis Obstructive sleep apnea Surgical History History of esophagogastroduodenoscopy (EGD) Hx of colonoscopy Thoracolumbar back pain History of hydrocelectomy History of surgery Family History Father Hypertension Mother Hypertension Maternal Aunt Past heart attack Sister Brain aneurysm Social History Housing: House Alcohol intake: never Patient Tobacco Use Status: Never used Tobacco e-Cigarette/Vaping Use: Never Used Second Hand Smoke Exposure: Yes service: No Current occupational status: unemployed Cognitive needs: No Hearing needs: No Vision needs: Yes (reading glasses ) Questionnaire Thrive Questionnaire Date Thrive assessed: 03/11/24 AUDIT C Alcohol Use Questionnaire (AUDIT-C) 1. How often do you have a drink containing alcohol?: Never 3. How often do you have six or more drinks on one occasion?: Never Total Score: 0 AMISH-7 AMB Questionnaire AMISH-7 Date AMISH - 7 assessed: 03/11/24 Source: Developed by Drs. Igor Sheehan, Perri Robin, Bakari Olivarez and colleagues, with an educational daniele from [employer]. Review of Systems Const Denies fever(s) and Denies headache(s) Eyes Reports no additional complaints ENT Denies dizziness and Denies headache(s) Card Denies chest pain, Denies lightheadedness, Denies dyspnea and Denies dyspnea on exertion Resp Denies cough, Denies dyspnea and Denies dyspnea on exertion GI Denies abdominal pain, Reports constipation, Denies nausea and Denies vomiting Reports no additional complaints Musc Reports no additional complaints and Denies abnormal gait Skin/Breast Reports system reviewed and no additional complaints, except as documented Neuro Denies abnormal gait, Denies dizziness and Denies headache(s) Psych Reports no additional complaints Physical exam (Primary Care) Vital Signs: Last Vital Signs Pulse 69 06/11/24 08:01 BP 130/86 06/11/24 08:01 Pulse Ox 95 06/11/24 08:01 Oxygen Delivery Method Room Air 06/11/24 08:01 BMI result Body Mass Index 26.9 Tobacco/Smoking Status: Tobacco use Status Tobacco use date assessed 03/11/24 06/11/24 08:01 Patient Tobacco Use Status Never used Tobacco 06/11/24 08:01 e-Cigarette/Vaping Use Never Used 06/11/24 08:01 Thrive Assessment: Date of Thrive Assessment Date Thrive assessed 03/11/24 06/11/24 08:01 Const General: cooperative, healthy appearing, comfortable and no acute distress Orientation/consciousness: patient oriented x3 HENMT Head: Yes normocephalic Ears: hearing grossly normal bilaterally General nose exam: Normal external nose present Eyes General: appearance normal, both eyes and all related structures Conjunctivae: conjunctivae normal Neck Neck: Yes full ROM and Yes no lymphadenopathy Resp Effort & Inspection: normal respiratory effort Auscultation: clear to auscultation bilaterally, no crackles, no rales, no rhonchi and no wheezes Cardio Rate: regular rate Rhythm: regular rhythm Skin General skin exam: no rashes or lesions noted Neuro General: patient oriented x3 Gait exam (Neuro): Normal gait present Extrem General: Yes normal to inspection, Yes full ROM and No edema Psych Affect: normal affect Attitude: cooperative Insight: Good insight present (Psych) Judgement: Good judgement present (Psych) Coding Level of Care Code Est Pt Level 3 (75726) Diagnoses Hyperaldosteronism E26.9 Restrictive lung disease J98.4 Essential hypertension I10 Hypertension type: essential hypertension Obstructive sleep apnea G47.33 Other idiopathic scoliosis, thoracolumbar region M41.25 Scoliosis type: idiopathic Idiopathic scoliosis type: other Spinal region: thoracolumbar Assessment & Plan Assessment & Plan (1) Hyperaldosteronism: Comment: CT scan right adrenal nodule consistent with adenoma Code(s): E26.9 - Hyperaldosteronism, unspecified Category: Medical Plan: Patient is said to have CT scan in June and follow up with Nephrology at that time. (2) Restrictive lung disease: Comment: PFT May 2023 severe Code(s): J98.4 - Other disorders of lung Category: Medical Plan: Continue to use CPAP nightly. Denies shortness of breath (3) HTN (hypertension): Code(s): I10 - Essential (primary) hypertension Category: Medical Qualifiers: Hypertension type: essential hypertension Qualified Code(s): I10 - Essential (primary) hypertension Plan: Continue on current blood pressure medication. Avoid salt intake and encourage healthy diet and regular exercise. (4) Obstructive sleep apnea: Comment: AHI 20 O2 lauren 80% Code(s): G47.33 - Obstructive sleep apnea (adult) (pediatric) Category: Medical Plan: Using CPAP nightly for at least 2 hours every night finds it beneficial. Does find that the mask is difficult to tolerate at times but still tries to stay compliant. Struggling recommended using the CPAP nightly (5) Scoliosis: Comment: 2014 back surgery [place] Status post hardware removalprosthetic joint fusion of spine of thoracolumbar region surgery 11/09/2021 removal of thoracolumbar spine implants left and right sides posterior bilateral surgeon Dr. Yojana Verduzco [place]- Code(s): M41.9 - Scoliosis, unspecified Category: Medical Qualifiers: Scoliosis type: idiopathic Idiopathic scoliosis type: other Spinal region: thoracolumbar Qualified Code(s): M41.25 - Other idiopathic scoliosis, thoracolumbar region Plan: Continue with pain management. Plan This note was constructed using voice recognition software. While every effort has been made to ensure accuracy and support services specialist, still areas may have been included sometimes these areas may affect the content or meeting of the given symptoms. Total time spent caring for the patient today was 30 minutes. This includes time spent before the visit reviewing the chart, time spent during the visit, and time spent after the visit and documentation. Medications: Refilled amlodipine 10 mg PO DAILY 90 days 90 tabs 1RF I10 - Essential (primary) hypertension lisinopril 40 mg PO DAILY 90 tabs 1RF I10 - Essential (primary) hypertension
== END 2024-06-11 08:23 | disposition home or self-care (01) ==
PROVIDERS: PCP Internal Medicine
DX: E26.9 Hyperaldosteronism, unspecified (principal); J98.4 Other disorders of lung; I10 Essential (primary) hypertension; G47.33 Obstructive sleep apnea (adult) (pediatric); M41.25 Other idiopathic scoliosis, thoracolumbar region

== ENCOUNTER → 2024-06-11 07:45 | Outpatient (BNVA) | payer OTHER, SELFPAY | PROVIDERS: PCP Internal Medicine | DX: E26.9 Hyperaldosteronism, unspecified (principal); J98.4 Other disorders of lung; I10 Essential (primary) hypertension; G47.33 Obstructive sleep apnea (adult) (pediatric); M41.25 Other idiopathic scoliosis, thoracolumbar region | CPT/HCPCS: 99212 ==

== ENCOUNTER 2024-06-20 10:46 | Outpatient (REF) | payer OTHER, SELFPAY ==
[2024-06-20 11:51] LABS: Anion Gap 11 (12-20); Blood Urea Nitrogen 12 mg/dL (9-16); Calcium 8.9 mg/dL (8.4-10.2); Carbon Dioxide 28 mmol/L (22-29); Chloride 104 mmol/L (96-108); Estimated Glomerular Filt Rate > 60; Glucose Random 88 mg/dL (60-115); Potassium 3.2 mmol/L (3.3-5.1); Sodium 140 mmol/L (135-145)
== END 2024-06-20 10:47 | disposition home or self-care (01) ==
LOC: HO.LAB 10:46
PROVIDERS: PCP Internal Medicine; Visit Provider Internal Medicine Hypertension Specialist
DX: I10 Essential (primary) hypertension (principal); E26.9 Hyperaldosteronism, unspecified
CPT/HCPCS: 36415; 80048

== ENCOUNTER 2024-06-26 06:31 | Outpatient (REF) | payer OTHER, SELFPAY ==
[2024-06-26] MEDS: iohexoL 350 MG/ML 100 ML INFUS..BTL IV (09:33)
[2024-06-26] MEDS: Barium Sulfate Oral (Berry) 450 ML ORAL.SUSP 900 ML PO (09:34)
== END 2024-06-26 06:32 | disposition home or self-care (01) ==
LOC: HO.CT 06:31
PROVIDERS: PCP Internal Medicine; Visit Provider Internal Medicine Hypertension Specialist
DX: E26.9 Hyperaldosteronism, unspecified (principal)
CPT/HCPCS: 74177; Q9967

== ENCOUNTER → 2024-06-26 06:34 | Outpatient (BNV) | payer OTHER, SELFPAY | PROVIDERS: PCP Internal Medicine; Visit Provider Radiology Diagnostic Radiology | DX: E26.9 Hyperaldosteronism, unspecified (principal) | CPT/HCPCS: 74177 ==

== ENCOUNTER 2024-07-07 11:51 | Outpatient (AMB) | payer OTHER, SELFPAY ==
[2024-07-07 11:52] VITALS: BP 112/76; PULSE 79; O2SAT 95; BMI 27.2
--- NOTE | 2024-07-07 11:52 | HO.NEPHOV_ITS ---
Vital Signs 07/07/24 11:52 Height 5 ft 7 in Weight 174 lb BMI 27.2 BP 112/76 Blood Pressure Location Lt brachial Position Sitting Pulse 79 Pulse Source Pulse Oximeter Pulse Oximetry (%) 95 Oxygen Delivery Method Room Air Intake Visit Reasons: Hyperaldosteronism/ Conf Field Technical Support Consultant Required: No Accompanied by: Spouse Allergies No Known Allergies Allergy (Verified 07/07/24 11:56) Medication List - Last Reconciled 07/07/24 by Nikolai Michel MD amlodipine 10 mg PO DAILY 90 days ascorbate calcium (vitamin C) 500 mg PO DAILY cholecalciferol (vitamin D3) 50 mcg PO DAILY 90 days CPAP (CPAP Machine/Device) As directed auto PAP 6-16 cm H20 himidified air docusate sodium (Colace) 200 mg PO BEDTIME PRN ferrous sulfate (FeroSul) 325 mg PO DAILY fluticasone propionate 50 mcg/actuation (Flonase Allergy Relief) 2 sprays intranasal DAILY gabapentin 300 mg PO BEDTIME ibuprofen mg PO PRN lactulose 20 grams PO TID PRN lisinopril 40 mg PO DAILY multivitamin 1 tab PO DAILY potassium chloride ER 20 mEq PO DAILY sennosides-docusate sodium 8.6-50 mg (Senna Plus) 2 tab-caps (2 x 8.6-50 mg) PO BEDTIME tramadol 50 mg PO DAILY zolpidem 5 mg PO BEDTIME PRN HPI Comments Details: Vincenzo is a middle-aged man with these hypertension for more than 15 years. He was diagnosed with hypertension in his early 30s. He since then has been on multiple anti hypertensive medication. Currently is on 2 antihypertensive medications including lisinopril. He is not on any diuretics. He has a history of hypokalemia the potassium 3.0 and mild alkalosis and hence this referral. Lisinopril was held for a week and PA/ PRA was elevated at 146 ! 09/20/23 Doing better ; K is 3.3 07/07/[address] done Results [facility] Medical History Insomnia Insomnia SOB (shortness of breath) History of anemia Colon cancer screening Contusion of left chest wall Cervical myofascial strain Left-sided headache Gallbladder polyp Hepatitis B core antibody positive Hydrocele Insomnia Vitamin D deficiency Allergic rhinitis Obstructive sleep apnea Surgical History History of esophagogastroduodenoscopy (EGD) Hx of colonoscopy Thoracolumbar back pain History of hydrocelectomy History of surgery Family History Father Hypertension Mother Hypertension Maternal Aunt Past heart attack Sister Brain aneurysm Social History Housing: House Alcohol intake: never Patient Tobacco Use Status: Never used Tobacco e-Cigarette/Vaping Use: Never Used Second Hand Smoke Exposure: Yes service: No Current occupational status: unemployed Cognitive needs: No Hearing needs: No Vision needs: Yes (reading glasses ) Physical Exam Vital Signs: Last Vital Signs Pulse 79 07/07/24 11:52 BP 112/76 07/07/24 11:52 Pulse Ox 95 07/07/24 11:52 Oxygen Delivery Method Room Air 07/07/24 11:52 BMI result Body Mass Index 27.2 Comfortable Neck supple no JVD. Lungs entry equal no rales. Heart S1-S2 heard no gallop or rub. Abdomen soft nontender. Neuro alert awake oriented. No asterixis. Extremities no edema. Results Reviewed Nephrology Results: Sodium 140 mmol/L (135-145) 06/20/24 Potassium 3.2 mmol/L (3.3-5.1) L 06/20/24 Chloride 104 mmol/L (96-108) 06/20/24 Carbon Dioxide 28 mmol/L (22-29) 06/20/24 BUN 12 mg/dL (9-16) 06/20/24 Creatinine 0.93 mg/dL (0.5-1.4) 06/20/24 Calcium 8.9 mg/dL (8.4-10.2) 06/20/24 Assessment & Plan Assessment & Plan (1) Hyperaldosteronism: Comment: CT scan right adrenal nodule consistent with adenoma Code(s): E26.9 - Hyperaldosteronism, unspecified Category: Medical (2) HTN (hypertension): Code(s): I10 - Essential (primary) hypertension Category: Medical Qualifiers: Hypertension type: essential hypertension Qualified Code(s): I10 - Essential (primary) hypertension (3) Hypokalemia: Code(s): E87.6 - Hypokalemia Category: Medical Plan Middle-aged man with longstanding hypertension who has mild hypokalemia with alkalosis. Currently is not on diuretics. At the present time serum potassium is still low. Renal function stable. Blood pressure is well controlled. PA/PRA was elevated at 146 after stopping Lisiniopril for 1 week Serum aldosterone was 27 suggestive of hyperaldosteronism. He had a CT scan in 2021 which was reported as normal adrenal glands. Repeat CT of the adrenals suggestive of ADENOMA - Follow up CT results pending But image reviewed and unchanged Underwent adrenal vein sampling No clear lateralization Increase potassium chloride 20 mEq p.o. BID. Goal is to maintain serum potassium 3.5 millimoles Orders: Orders Basic Metabolic Panel 3 Months E87.6 - Hypokalemia Medications: Changed From potassium chloride ER 20 mEq PO DAILY 90 tabs 2RF To potassium chloride ER 20 mEq PO BID 180 tabs 2RF Coding Level of Care Code Est Pt Level 4 (62540) Diagnoses Hyperaldosteronism E26.9 Essential hypertension I10 Hypertension type: essential hypertension Hypokalemia E87.6
== END 2024-07-07 12:10 | disposition home or self-care (01) ==
PROVIDERS: PCP Internal Medicine; Visit Provider Internal Medicine Hypertension Specialist
DX: E26.9 Hyperaldosteronism, unspecified (principal); I10 Essential (primary) hypertension; E87.6 Hypokalemia
CPT/HCPCS: 99214

== ENCOUNTER → 2024-07-07 11:51 | Outpatient (BNVA) | payer OTHER, SELFPAY | PROVIDERS: PCP Internal Medicine; Visit Provider Internal Medicine Hypertension Specialist | DX: I10 Essential (primary) hypertension (principal); E26.9 Hyperaldosteronism, unspecified; E87.6 Hypokalemia | CPT/HCPCS: 99212 ==

== ENCOUNTER 2024-07-30 08:46 | Outpatient (AMB) | payer OTHER, SELFPAY ==
--- NOTE | 2024-07-30 08:52 | A.OFFPC_ITS ---
Vital Signs 3 07/30/24 08:53 Height 5 ft 7 in Weight 175 lb BMI 27.4 BP 134/92 H Blood Pressure Location Lt brachial Position Sitting Pulse 85 Pulse Source Pulse Oximeter Pulse Oximetry (%) 98 Oxygen Delivery Method Room Air Intake Visit Reasons: ANNUAL Allergies No Known Allergies Allergy (Verified 07/30/24 08:53) Medication List - Last Reconciled 07/30/24 by Lily Bae MD amlodipine 10 mg PO DAILY 90 days ascorbate calcium (vitamin C) 500 mg PO DAILY cholecalciferol (vitamin D3) 50 mcg PO DAILY 90 days CPAP (CPAP Machine/Device) As directed auto PAP 6-16 cm H20 himidified air docusate sodium (Colace) 200 mg PO BEDTIME PRN ferrous sulfate (FeroSul) 325 mg PO DAILY fluticasone propionate 50 mcg/actuation (Flonase Allergy Relief) 2 sprays intranasal DAILY gabapentin 300 mg PO BEDTIME ibuprofen mg PO PRN lactulose 20 grams PO TID PRN lisinopril 40 mg PO DAILY multivitamin 1 tab PO DAILY potassium chloride ER 20 mEq PO BID sennosides-docusate sodium 8.6-50 mg (Senna Plus) 2 tab-caps (2 x 8.6-50 mg) PO BEDTIME tramadol 50 mg PO DAILY zolpidem 5 mg PO BEDTIME PRN Tobacco use date assessed: 07/30/24 Dental Screening Dental Screen Date: 07/30/24 Did you have a dental visit in the last 12 months?: Yes Did you have a dental problem in the last 6 months where you did not have access to dental care?: No Was dental information given to patient?: Patient has dentist HPI ANNUAL 2 HPI0 Details The patient is a 48-year-old male presenting with hyperaldosteronism and associated symptoms. He recently saw a bank compliance officer regarding his condition and had a CT scan performed last month; however, the results have not been reviewed. The patient's blood pressure has been well-controlled, and he is currently on amlodipine and lisinopril. Recent weight checks have shown a gradual increase from 171 lbs in March to 175 lbs currently. He reports no new diagnoses or surgeries since the last visit. For constipation, he uses senna and colace. The patient also has a history of sleep apnea, struggles with CPAP adherence, and experiences frequent nightly awakenings to urinate, which may be related to an enlarged prostate. Previous evaluation in 2008 indicated a normal prostate, but recent findings suggest enlargement. The patient experiences chronic pain, for which tramadol is prescribed and preferred, despite drowsiness as a side effect. Family history includes an aunt with a myocardial infarction, but no other notable cardiac issues or malignancies. - Advised on the importance of maintaini ng adequate hydration and a healthy diet. - Discussed flu vaccinations and necessi ty of receiving one during flu season. - Advised on discontinuing tea consumpti on before sleep to reduce nocturia. - Recommended addressing sleep apnea wit h CPAP or new mask fit. - Evaluation for prostate health through ultrasound and blood work. - Encouraged physical activity as part o f heart health management. - Does not consume alcohol or use tobacc o. - Experiences difficulty using CPAP due to work-related challenges and improper fit. - Reports a sedentary lifestyle with zbigniew e attempts at physical therapy limited by insurance coverage. - Cardiovascular: Denies dizziness, sync ope. - Respiratory: Denies dyspnea, reports s noring, occasional apnea during sleep. - Gastrointestinal: Denies nausea, vomit ing; reports constipation. - Genitourinary: Reports nocturia, frequ ent urination at night. - Labs: Blood creatinine and potassium l evels monitored; specifics not stated. - Tests: Pending ultrasound [facility] for prostate assessment. [facility] Medical History Insomnia Insomnia SOB (shortness of breath) History of anemia Colon cancer screening Contusion of left chest wall Cervical myofascial strain Left-sided headache Gallbladder polyp Hepatitis B core antibody positive Hydrocele Insomnia Vitamin D deficiency Allergic rhinitis Obstructive sleep apnea Surgical History History of esophagogastroduodenoscopy (EGD) Hx of colonoscopy Thoracolumbar back pain History of hydrocelectomy History of surgery Family History Father Hypertension Mother Hypertension Maternal Aunt Past heart attack Sister Brain aneurysm Social History Housing: House Alcohol intake: never Patient Tobacco Use Status: Never used Tobacco Tobacco use type: Cigarette e-Cigarette/Vaping Use: Never Used Second Hand Smoke Exposure: Yes service: No Current occupational status: unemployed Cognitive needs: No Hearing needs: No Vision needs: Yes (reading glasses ) Questionnaire PHQ-9 Over the last 2 weeks, how often have you been bothered by any of the following problems? 1. Little interest or pleasure in doing things: not at all 2. Feeling down, depressed, or hopeless: not at all 3. Trouble falling or staying asleep, or sleeping too much: not at all 4. Feeling tired or having little energy: not at all 5. Poor appetite or overeating: not at all 6. Feeling bad about yourself - or that you are a failure or have let yourself or your family down: not at all 7. Trouble concentrating on things, such as reading the newspaper or watching television: not at all 8. Moving or speaking so slowly that other people could have noticed. Or the opposite - being so fidgety or restless that you have been moving around a lot more than usual: not at all 9. Thoughts that you would be better off or of hurting yourself in some way: not at all Total score: 0 Depression Screening Interpretation: Negative Depression Screening Done: Yes 71592 - PHQ-9 Billing: Yes Source: Developed by Drs. Igor Sheehan, Perri Robin, Bakari Olivarez and colleagues, with an educational daniele from [employer]. Thrive Questionnaire Date Thrive assessed: 07/30/24 I am a: Patient What is your living situation today?: I have a steady place to live Within the past 12 months, did the food you bought not last and you didn't have the money to get more?: Never true Within the past 12 months, did you worry whether your food would run out before you got money to buy more?: Never true Do you have trouble paying for medicines?: No Do you have trouble getting transportation to medical appointments?: No Do you have trouble paying your heating and electricity bill?: No Do you have trouble taking care of your child, family member or friend?: No Do you have trouble with day-to-day activities such as bathing, preparing meals, shopping, managing finances, etc.?: No Are you currently unemployed and looking for a job?: No Are you interested in more education?: No Currently or been in a relationship where the following occur: No concerns reported THRIVE Score: 0 AUDIT C Alcohol Use Questionnaire (AUDIT-C) 1. How often do you have a drink containing alcohol?: Never 3. How often do you have six or more drinks on one occasion?: Never Total Score: 0 AMISH-7 AMB Questionnaire AMISH-7 Date AMISH - 7 assessed: 07/30/24 Feeling nervous, anxious, or on edge: 0 = Not at all Not being able to stop or control worryin = Not at all Worrying too much about different things: 0 = Not at all Trouble relaxin = Not at all Being so restless that it is hard to sit still: 0 = Not at all Becoming easily annoyed or irritable: 0 = Not at all Feeling afraid as if something awful might happen: 0 = Not at all Total AMISH-7 score (0-4 normal; 5-9 mild; 10-14 moderate; 15-21 severe): 0 Source: Developed by Drs. Igor Sheehan, Perri Robin, Bakari Olivarez and colleagues, with an educational daniele from [employer]. AMISH-7 Assessment Billing AMISH-7 Assessment Tool: AMISH-7 Assessment 79373 Review of Systems Const Denies poor appetite and Denies weakness Eyes Denies no additional complaints ENT Reports Normal hearing present, Denies dizziness, Denies nasal congestion, Denies tinnitus and Denies sore throat Card Denies chest pain, Denies syncope, Denies rapid heart rate and Denies dyspnea Resp Denies cough and Denies dyspnea GI Denies change in stool character, Reports constipation, Denies diarrhea, Denies nausea and Denies vomiting Denies dysuria and Denies urinary frequency Neuro Reports Normal hearing present, Denies confusion, Denies dizziness, Denies syncope and Denies weakness Psych Denies confusion Physical exam (Primary Care) Vital Signs: Last Vital Signs Pulse 85 07/30/24 08:53 BP 134/92 H 07/30/24 08:53 Pulse Ox 98 07/30/24 08:53 Oxygen Delivery Method Room Air 07/30/24 08:53 BMI result Body Mass Index 27.4 Tobacco/Smoking Status: Tobacco use Status Tobacco use date assessed 01/08/25 01/08/25 08:56 Patient Tobacco Use Status Never used Tobacco 07/30/24 08:56 Tobacco use type Cigarette 07/30/24 08:56 e-Cigarette/Vaping Use Never Used 07/30/24 08:56 PHQ-9: PHQ-9 Score PHQ-9: Total score 0 07/30/24 09:29 Depression Screening Interpretation: Negative Thrive Assessment: Date of Thrive Assessment Date Thrive assessed 07/30/24 07/30/24 08:56 Currently or been in a relationship where the following occur: No concerns reported Const General: No confusion Orientation/consciousness: No confusion HENMT Head: Yes normocephalic Ears: external ears normal and TM's normal bilaterally Face and sinus: Yes normal facial exam Mouth: moist mucous membranes Throat: Yes tonsils normal Eyes Conjunctivae: conjunctivae normal Pupils: Equal, round and reactive pupils present and Pupil accommodation reflex normal Direct Ophthalmoscopy: normal light reflex Neck Neck: No lymphadenopathy Thyroid: Thyroid normal Chest Chest palpation & inspection: normal inspection of the chest Resp Effort & Inspection: normal respiratory effort and no audible wheezes Auscultation: clear to auscultation bilaterally, no crackles, no wheezes and lung sounds not diminished Cardio Rate: regular rate Rhythm: regular rhythm Peripheral pulses: radial pulses present and dorsalis pedis present GI Other: guaiac negative, enlarged prostate Palpation (GI): no masses Auscultation: normal bowel sounds and normoactive bowel sounds Male General Exam: Yes normal external exam Back/Spine/Pelvis Back/spine/pelvis image: 2 1. severe scoliosis noted with bulging r back area Skin General skin exam: no rashes or lesions noted Rashes: no rashes Neuro General: No confusion Cranial nerves: Yes Equal, round and reactive pupils present and Yes Normal hearing present Cognition (Neuro): normal cognition Gait exam (Neuro): Normal gait present Motor exam (neuro): 5/5 motor strength present throughout Deep tendon reflexes (DTR's): Right brachioradialis reflex intensity grade: 2+, Left brachioradialis reflex intensity grade: 2+, Right patellar reflex intensity grade: 2+ and Left patellar reflex intensity grade: 2+ Extrem General: No edema Coding Level of Care Code Est Pt Prev Care 40-64y(85919) Diagnoses Annual physical exam Z00.00 Other idiopathic scoliosis, thoracolumbar region M41.25 Idiopathic scoliosis type: other Scoliosis type: idiopathic Spinal region: thoracolumbar Essential hypertension I10 Hypertension type: essential hypertension Hyperaldosteronism E26.9 Obstructive sleep apnea G47.33 Frequency of micturition R35.0 Additional Codes AMISH-7 Assessment Billing - AMISH-7 Assessment Tool: AMISH-7 Assessment 61707 ([id number]) PHQ-9 - 32935 - PHQ-9 Billing: Yes ([id number]) Assessment & Plan Assessment & Plan (1) Annual physical exam: Code(s): Z00.00 - Encounter for general adult medical examination without abnormal findings Category: Medical (2) Scoliosis: Comment: 2013 back surgery N [place] Status post hardware removalprosthetic joint fusion of spine of thoracolumbar region surgery 11/09/2021 removal of thoracolumbar spine implants left and right sides posterior bilateral surgeon Dr. Yojana Verduzco [place]- Code(s): M41.9 - Scoliosis, unspecified Category: Medical Qualifiers: Idiopathic scoliosis type: other Scoliosis type: idiopathic Spinal region: thoracolumbar Qualified Code(s): M41.25 - Other idiopathic scoliosis, thoracolumbar region (3) HTN (hypertension): Code(s): I10 - Essential (primary) hypertension Category: Medical Qualifiers: Hypertension type: essential hypertension Qualified Code(s): I10 - Essential (primary) hypertension (4) Hyperaldosteronism: Comment: CT scan right adrenal nodule consistent with adenoma Code(s): E26.9 - Hyperaldosteronism, unspecified Category: Medical (5) Obstructive sleep apnea: Comment: AHI 20 O2 lauren 80% Code(s): G47.33 - Obstructive sleep apnea (adult) (pediatric) Category: Medical (6) Frequency of micturition: Code(s): R35.0 - Frequency of micturition Category: Medical Plan - Continue current blood pressure medications, including amlodipine and lisinopril. - Address constipation with senna and dietary fiber. - Schedule ultrasound to evaluate prostate size given nocturia and enlargement on exam. - Encourage adherence to CPAP therapy and consider sleep study for obstructive sleep apnea. - Physical therapy recommended for musculoskeletal complaints. - Tramadol use to be monitored for efficacy and any sedative side effects. I discussed the management of hyperaldosteronism and importance of BP control, reassuring the patient about the stable kidney function currently. We went over the implications of NSAIDs on renal health and recommended using acetaminophen for mild pain. For severe pain, tramadol is appropriate with precautions on operating machinery. Discussed contraception since prostate enlargement needs urologic attention. I emphasized using CPAP for sleep apnea consistently to prevent complications. Patient advised to stop tea consumption at night, urged prompt scheduling of prostate ultrasound, and encouraged a gradual increase in physical activity to aid musculoskeletal health. Advised bi-annual lab tests to monitor kidney and cardiac health in light of family history. - Continue taking blood pressure medications. - Use tramadol for pain as needed, but avoid driving if sedated. - Use CPAP machine each night; contact supplier for adjustments if needed. - Schedule and complete the prostate and urinary system ultrasound. - Reduce or eliminate tea consumption in the evening to decrease nighttime urination. - Follow up for regular blood pressure checks and labs. - Maintain healthy hydration and contemplate physical activity for weight management. - Return for consultation ideally every six months but reach out earlier with any concerning symptoms. Orders: Orders 2 US bladder Today R35.0 - Frequency of micturition UA CC w/rflx Micro + Cult Today R30.0 - Dysuria, R35.0 - Frequency of micturition Complete Blood Count Auto Diff Today E87.6 - Hypokalemia Comprehensive Met. Panel Today E87.6 - Hypokalemia IRON PROFILE Today E87.6 - Hypokalemia Lipid Panel Today E78.00 - Pure hypercholesterolemia, unspecified, E87.6 - Hypokalemia Thyroid Stimulating Hormone Today E87.6 - Hypokalemia Hemoglobin A1c Today E87.6 - Hypokalemia Reticulocyte Count Today E87.6 - Hypokalemia Ferritin Today E87.6 - Hypokalemia Free T4 (Free Thyroxine) Today E87.6 - Hypokalemia Vitamin B12 and Folate Today E87.6 - Hypokalemia Prostate Specific Antigen Scr Today E87.6 - Hypokalemia PT Evaluation and Treatment Today M54.5 - Low back pain, M54.6 - Pain in thoracic spine Medications: Refilled 2 tramadol 50 mg PO DAILY 30 tabs 0RF R06.02 - Shortness of breath
[2024-07-30 08:53] VITALS: BP 134/92; PULSE 85; O2SAT 98; BMI 27.4
== END 2024-07-30 09:45 | disposition home or self-care (01) ==
PROVIDERS: PCP Internal Medicine; Visit Provider Internal Medicine
DX: Z00.00 Encounter for general adult medical examination without abnormal findings (principal); M41.25 Other idiopathic scoliosis, thoracolumbar region; I10 Essential (primary) hypertension; E26.9 Hyperaldosteronism, unspecified; G47.33 Obstructive sleep apnea (adult) (pediatric); R35.0 Frequency of micturition

== ENCOUNTER → 2024-07-30 08:46 | Outpatient (BNVA) | payer OTHER, SELFPAY | PROVIDERS: PCP Internal Medicine; Visit Provider Internal Medicine | DX: Z00.00 Encounter for general adult medical examination without abnormal findings (principal); M41.25 Other idiopathic scoliosis, thoracolumbar region; I10 Essential (primary) hypertension; E26.9 Hyperaldosteronism, unspecified; G47.33 Obstructive sleep apnea (adult) (pediatric); R35.0 Frequency of micturition; E87.6 Hypokalemia; M54.50 Low back pain, unspecified; M54.6 Pain in thoracic spine; R06.02 Shortness of breath | CPT/HCPCS: 96127; 99396 ==

== ENCOUNTER 2024-08-20 11:12 | Outpatient (REF) | payer OTHER, SELFPAY ==
--- NOTE | ~2024-08-20 | US_ITS ---
EXAMINATION: US PELVIS LIMITED (BLADDER) CLINICAL INFORMATION: Frequency of micturition.. COMPARISON: None available. TECHNIQUE: Real-time imaging of the bladder. FINDINGS: BLADDER: Fluid-filled. Bilateral ureteral jets are demonstrated. Prevoid bladder volume is 229 mL. Postvoid bladder volume is 15 mL. Prostate gland measures 4 x 3 cm without punctate calcifications. Prostate volume 13 cc. US/US bladder IMPRESSION: 15 cc of residual urine in a post void image.. Electronically signed by: Del Stewart MD 08/20/2024 01:16 PM GABBI
== END 2024-08-20 11:13 | disposition home or self-care (01) ==
LOC: HO.US 11:12
PROVIDERS: PCP Internal Medicine; Visit Provider Internal Medicine
DX: R35.0 Frequency of micturition (principal)
CPT/HCPCS: 76857

== ENCOUNTER → 2024-08-20 11:13 | Outpatient (BNV) | payer OTHER, SELFPAY | PROVIDERS: PCP Internal Medicine; Visit Provider Radiology Diagnostic Radiology | DX: N39.43 Post-void dribbling (principal) | CPT/HCPCS: 76857 ==

== ENCOUNTER 2024-09-10 09:28 | Outpatient (REF) | payer OTHER, SELFPAY ==
[2024-09-10 09:41] LABS: MANUAL DIFF FLAG NO
[2024-09-10 09:46] LABS: Basophils Percent Auto 0.7 % (0-2); Eosinophils Absolute Auto 0.1 X10*3/uL (0.0-0.4); Eosinophils Percent Auto 2.4 % (0-4); Hematocrit 40.1 % (42.0-52.0); Hemoglobin 13.3 g/dl (14.0-18.0); Imm Gran Abs Auto 0.01 X10*3/uL (0.00-0.03); Imm Gran Pct Auto 0.2 % (0.0-0.4); Immature Retic Fraction 5.2 % (2.3-13.4); Lymphocytes Absolute Auto 2.1 X10*3/uL (1.2-4.9); Lymphocytes Percent Auto 51.5 % (20-40); Mean Corpuscular HGB Conc 33.2 g/dl (31.0-36.0); Mean Corpuscular Hemoglobin 26.4 pg (27.0-33.0); Mean Corpuscular Volume 79.6 fL (80.0-98.0); Mean Platelet Volume 10.7 fL (9.4-12.4); Monocytes Absolute Auto 0.4 X10*3/uL (0.1-1.2); Monocytes Percent Auto 10.5 % (2-11); Neutrophils Absolute Auto 1.4 x10*3/uL (2.0-8.3); Neutrophils Percent Auto 34.7 % (45-73); Platelet Count 220 X10*3/uL (160-400); Red Blood Count 5.04 X10*6/uL (4.60-5.80); Red Cell Distribution Width 14.5 % (11.0-16.0); Retic HGB Equivalent 31.1 pg (30.0-35.0); Reticulocyte Percent 0.5 % (0.5-1.8); Reticulocytes Absolute 0.027 X10*6/uL (0.026-0.095); White Blood Count 4.1 X10*3/uL (4.8-10.8)
--- OUTSIDE RECORDS SUMMARY | 2024-09-10 09:47 | XMS_ITS | Encounter Summary ---
Author Organization [facility] Address [address] [place] [address] [address] [place] [address] Care Team Providers Care Tone Cabinet Assembler Name Role Phone Connie Valverde DO Primary Care Provider [phone] Encounter Details Date Type Department Care Team (Latest Contact Info) Description 03/08/2021 Abstract [facility] CONVERSIONS Dental, Provider, DDS Social History Tobacco Use Types Packs/Day Years Used Date Smoking Tobacco: Never Assessed Sex and Gender Information Value Date Recorded Sex Assigned at Male 05/22/2022 10:18 AM EDT Legal Sex Male 10:18 AM EDT Gender Identity Male 05/22/2022 10:18 AM EDT Sexual Orientation Straight 05/22/2022 10 :18 AM EDT documented as of this encounter Plan of Treatment Not on file documented as of this encounter Visit Diagnoses Not on filedocumented in this encounter Care Teams Tone Cabinet Assembler Relationship Specialty Start Date End Date Connie Valverde DO [address] [place] [id number] PCP - General Family Medicine 06/15/20 07/01/23 documented as of this encounter
--- OUTSIDE RECORDS SUMMARY | 2024-09-10 09:47 | XMS_ITS | Clinical Summary ---
Author Organization [facility] Address [address] [place] [address] [address] [place] [address] Care Team Providers Care Vice President Payer Name Role Phone Unavailable Primary Care Provider Unavailabl e Allergies No known active allergies Medications No known medications Active Problems Problem Noted Date Diagnosed Date Dental caries 10/26/2022 Periodontal disease 10/26/2022 Social History Tobacco Use Types Packs/Day Years Used Date Smoking Tobacco: Never Passive Smoke Exposure: Never Smokeless Tobacco: Never Tobacco Cessation:Counseling Given: No Alcohol Use Standard Drinks/Week Comments Never 0 (1 standard drink = 0.6 oz pur e alcohol) Sex and Gender Information Value Date Recorded Sex Assigned at Male 05/22/2022 10:18 AM EDT Legal Sex Male 10:18 AM EDT Gender Identity Male 05/22/2022 10:18 AM EDT Sexual Orientation Straight 05/22/2022 10 :18 AM EDT Plan of Treatment Health Maintenance Due Date Last Done Comments CT Colonography 1973 Colonoscopy 1973 Colorectal Cancer Screening 1973 Dental Oral Exam 1973 Dental Prophylaxis 1973 Dental X-Ray: Full Mouth 1973 Depression Screening 1973 FIT DNA/Cologuard 1973 FIT 1973 FOBT 1973 HIV Screening 1973 Lipid Panel 1973 SDOH Screening 1973 Sigmoidoscopy 1973 Alcohol/Substance Use Screening 1985 Family Planning (PISQ) 1988 Hepatitis C Screening 1991 Hepatitis B Vaccines (1 of 3 - 19+ 3-dose series) 1992 DTaP/Tdap/Td Vaccines (1 - Tdap) 06/30/2017 06/29/2017 Pneumococcal Vaccine: 50+ Years (1 of 1 - PCV) 2023 Zoster Vaccines (1 of 2) 2023 Tobacco Screening 10/27/2023 10/26/2022 Dental X-Ray: Bitewings 10/28/2023 10/26/2022 COVID-19 Vaccine (3 - 2023-2 5 season) 2024 02/16/2021, 01/26/2021 Influenza Vaccine (#1) 2024 RSV Patients and Patients Aged 60 years or older (1 - 1-dose 75+ series) 2048 HIB Vaccines Aged Out No longer eligi ble based on patient's age to complete this topic HPV Vaccines Aged Out No longer eligi ble based on patient's age to complete this topic Hepatitis A Vaccines Aged Out No long er eligible based on patient's age to complete this topic IPV Vaccines Aged Out No longer eligi ble based on patient's age to complete this topic Meningococcal Vaccine Aged Out No mary jo walt eligible based on patient's age to complete this topic Pneumococcal Vaccine: Pediatrics (0 to 5 Years) and At-Risk Patients (6 to 49) Years) Aged Out No longer eligible b ased on patient's age to complete this topic RSV under 20 months Aged Out No longe r eligible based on patient's age to complete this topic Rotavirus Vaccines Aged Out No longer eligible based on patient's age to complete this topic Procedures Procedure Name Priority Date/Time Associated Diagnosis Comments BITEWINGS - 4 RADIOGRAPHIC IMAGES Routine 10/26/2022 11:00 AM EDT from Last 3 Months or Most Recently Relevant to Health Maintenance Insurance DENTAL-[facility] MEDICAID STAND ADULT DENTAL - HSN FULL (MEDICAID)
[2024-09-10 09:56] LABS: Estimated Average Glucose 123 mg/dL; Hemoglobin A1C 141.0309 umol/L; Hemoglobin A1c % 5.9 % (<6.0); Total Hemoglobin (HGBA1C) 3477.2759 umol/L
[2024-09-10 10:24] LABS: Alanine Aminotransferase 27 U/L (0-40); Albumin Level 4.3 g/dL (3.5-5.0); Alkaline Phosphatase 59 U/L (39-117); Anion Gap 12 (12-20); Aspartate Amino Transferase 29 U/L (5-37); Bilirubin Total 0.7 mg/dL (0.0-1.0); Blood Urea Nitrogen 14 mg/dL (9-16); Calcium 9.4 mg/dL (8.4-10.2); Carbon Dioxide 30 mmol/L (22-29); Chloride 105 mmol/L (96-108); Cholesterol 169 mg/dL (<200); Estimated Glomerular Filt Rate > 60; Glucose Random 84 mg/dL (60-115); HDL Cholesterol 39 mg/dL (>40); Iron 118 mcg/dL (45-160); LDL Cholesterol Calculated 110 mg/dL (<100); Percent Iron Saturation 45 % (15-50); Potassium 3.5 mmol/L (3.3-5.1); Sodium 143 mmol/L (135-145); Total Iron Binding Capacity 261 mcg/dL (228-428); Total Protein 8.2 g/dL (6.5-8.0); Triglycerides 100 mg/dL (<150); Unsaturated Iron Binding 143 ug/dL
[2024-09-10 10:46] LABS: Ferritin 100 ng/mL (20-250); Free T4 (Free Thyroxine) 1.16 ng/dL (0.71-1.85); Thyroid Stimulating Hormone 0.36 uIU/mL (0.32-4.0)
[2024-09-10 10:48] LABS: Folate 10.4 ng/mL (> or = 4.0); Prostate Specific Antigen Scr 0.54 ng/mL (<0.05-4.0); Vitamin B12 957 pg/mL (200-900)
[2024-09-10 11:40] LABS: Appearance Urine Cloudy; Color Urine Yellow; Glucose Urine UA Negative (Negative); Leukocyte Esterase Urine Negative (Negative); Nitrite Urine Negative (Negative); PH 7.5 (5.0-9.0); Urine Blood Negative (Negative); Urine Ketones Negative (Negative); Urine Protein Trace mg/dL (Neg-Trace)
== END 2024-09-10 09:29 | disposition home or self-care (01) ==
LOC: HO.LAB 09:28
PROVIDERS: PCP Internal Medicine; Visit Provider Internal Medicine
DX: E87.6 Hypokalemia (principal); E78.00 Pure hypercholesterolemia, unspecified; R35.0 Frequency of micturition; R30.0 Dysuria; Z12.5 Encounter for screening for malignant neoplasm of prostate; Z13.1 Encounter for screening for diabetes mellitus
CPT/HCPCS: 36415; 80053; 80061; 81003; 82607; 82728; 82746; 83036; 83540; 84153; 84439; 84443; 85025; 85045

== ENCOUNTER 2024-09-26 09:27 | Outpatient (AMB) | payer OTHER, SELFPAY ==
[2024-09-26 09:37] VITALS: BP 132/92; PULSE 67; O2SAT 96; BMI 27.6
--- NOTE | 2024-09-26 09:37 | MHC.PC.OV ---
Vital Signs 09/26/24 09:37 Height 5 ft 7 in Weight 176 lb BMI 27.6 BP 132/92 H Blood Pressure Location Lt brachial Position Sitting Pulse 67 Pulse Source Pulse Oximeter Pulse Oximetry (%) 96 Oxygen Delivery Method Room Air Intake Visit Reasons: 3mth f/u Allergies No Known Allergies Allergy (Verified 09/26/24 09:38) Tobacco use date assessed: 07/30/24 Dental Screening Dental Screen Date: 07/30/24 [facility] Medical History (Updated 09/26/24 @ 09:46 by Lily Bae MD) Insomnia Insomnia SOB (shortness of breath) History of anemia Colon cancer screening Contusion of left chest wall Cervical myofascial strain Left-sided headache Gallbladder polyp Hepatitis B core antibody positive Hydrocele Insomnia Vitamin D deficiency Allergic rhinitis Obstructive sleep apnea Surgical History History of esophagogastroduodenoscopy (EGD) Hx of colonoscopy Thoracolumbar back pain History of hydrocelectomy History of surgery Family History Father Hypertension Mother Hypertension Maternal Aunt Past heart attack Sister Brain aneurysm Social History Housing: House Alcohol intake: never Patient Tobacco Use Status: Never used Tobacco Tobacco use type: Cigarette e-Cigarette/Vaping Use: Never Used Second Hand Smoke Exposure: Yes service: No Current occupational status: unemployed Cognitive needs: No Hearing needs: No Vision needs: Yes (reading glasses ) Questionnaire PHQ-9 Over the last 2 weeks, how often have you been bothered by any of the following problems? 1. Little interest or pleasure in doing things: not at all 2. Feeling down, depressed, or hopeless: not at all 3. Trouble falling or staying asleep, or sleeping too much: not at all 4. Feeling tired or having little energy: not at all 5. Poor appetite or overeating: not at all 6. Feeling bad about yourself - or that you are a failure or have let yourself or your family down: not at all 7. Trouble concentrating on things, such as reading the newspaper or watching television: not at all 8. Moving or speaking so slowly that other people could have noticed. Or the opposite - being so fidgety or restless that you have been moving around a lot more than usual: not at all 9. Thoughts that you would be better off or of hurting yourself in some way: not at all Total score: 0 Depression Screening Interpretation: Negative Depression Screening Done: Yes 63661 - PHQ-9 Billing: Yes Source: Developed by Perri Day Kurt Kroenke and colleagues, with an educational daniele from [employer]. Thrive Questionnaire Date Thrive assessed: 07/30/24 AMISH-7 AMB Questionnaire AMISH-7 Date AMISH - 7 assessed: 07/30/24 Source: Developed by Drs. Igor Sheehan, Bakari Valadez and colleagues, with an educational daniele from [employer]. Physical exam (Primary Care) Vital Signs: Last Vital Signs Pulse 67 09/26/24 09:37 BP 132/92 H 09/26/24 09:37 Pulse Ox 96 09/26/24 09:37 Oxygen Delivery Method Room Air 09/26/24 09:37 BMI result Body Mass Index 27.6 Tobacco/Smoking Status: Tobacco use Status Tobacco use date assessed 07/30/24 09/26/24 09:42 Patient Tobacco Use Status Never used Tobacco 09/26/24 09:42 Tobacco use type Cigarette 09/26/24 09:42 e-Cigarette/Vaping Use Never Used 09/26/24 09:42 PHQ-9: PHQ-9 Score PHQ-9: Total score 0 09/26/24 10:11 Depression Screening Interpretation: Negative Thrive Assessment: Date of Thrive Assessment Date Thrive assessed 07/30/24 09/26/24 09:42 Const General: alert; No acute distress Eyes Conjunctivae: conjunctivae normal Resp Auscultation: clear to auscultation bilaterally Cardio Rate: regular rate Rhythm: regular rhythm GI Inspection: Yes normal to inspection Extrem General: Yes normal to inspection and No edema Office Procedures Flu Questionnaire Does the patient have a severe egg allergy?: No Does the patient have severe life threatening allergies?: No Does the patient have a fever or illness today?: No Has the patient ever had Guillain-[place] Syndrome?: No Has the patient ever had any past reaction to a flu shot?: No Immunizations Fluarix Triv [id number] (PF) 45 mcg (15 mcg x 3)/0.5 mL IM syringe Performing Provider: Lily Bae MD Performing Location: [facility] Administered by: Kari Haddad CMA on 09/26/24 10:11 Dose Route Admin Location Dispensed Lot Number Expiration Date NDC Campaign Developer 0.5 mL IM Left Deltoid 0.5 mL [id number] 01/19/25 93811-704-47 [employer] VIS Given Date VIS Provided VIS Publication Date 09/26/24 Single Vaccine 21 Eligibility Eligibility Date Funding Source Not [facility] Eligible 09/26/24 Private Coding Level of Care Code Est Pt Level 4 (79546) Complex EM visit Add On G2211 Diagnoses Hyperaldosteronism E26.9 Essential hypertension I10 Hypertension type: essential hypertension Other idiopathic scoliosis, thoracolumbar region M41.25 Idiopathic scoliosis type: other Scoliosis type: idiopathic Spinal region: thoracolumbar Anemia, unspecified type D64.9 Anemia type: unspecified type Impaired glucose tolerance R73.02 Obstructive sleep apnea G47.33 Additional Codes PHQ-9 - 70459 - PHQ-9 Billing: Yes ([id number]) Assessment & Plan Assessment & Plan (1) Hyperaldosteronism: Comment: CT scan right adrenal nodule consistent with adenoma Code(s): E26.9 - Hyperaldosteronism, unspecified Category: Medical Plan: Continue with present blood pressure medications patient had do follow-up with Nephrology (2) HTN (hypertension): Code(s): I10 - Essential (primary) hypertension Category: Medical Qualifiers: Hypertension type: essential hypertension Qualified Code(s): I10 - Essential (primary) hypertension Plan: Patient is on amlodipine 10 mg once a day lisinopril 40 mg once a day. Patient has a follow-up with Nephrology next month (3) Scoliosis: Comment: 2013 back surgery [facility] Status post hardware removalprosthetic joint fusion of spine of thoracolumbar region surgery 11/09/2021 removal of thoracolumbar spine implants left and right sides posterior bilateral surgeon Dr. Yojana Verduzco [place]- Code(s): M41.9 - Scoliosis, unspecified Category: Medical Qualifiers: Idiopathic scoliosis type: other Scoliosis type: idiopathic Spinal region: thoracolumbar Qualified Code(s): M41.25 - Other idiopathic scoliosis, thoracolumbar region Plan: Supportive treatment with pain medication (4) Anemia: Comment: Iron deficient Code(s): D64.9 - Anemia, unspecified Category: Medical Qualifiers: Anemia type: unspecified type Qualified Code(s): D64.9 - Anemia, unspecified Plan: Chronic and improving and will continue to monitor (5) Impaired glucose tolerance: Code(s): R73.02 - Impaired glucose tolerance (oral) Category: Medical Plan: Decrease the amount of carbohydrate intake, pasta, bread, rice and potatoes are all sugar and that is aside from all the sweet stuff, remember that fruits are good but they are Sweet also. (6) Obstructive sleep apnea: Comment: AHI 20 O2 lauren 80% Sleep study done in August 2024 demonstrated severe obstructive sleep apnea AHI of 31 auto CPAP 5-20 cm water Code(s): G47.33 - Obstructive sleep apnea (adult) (pediatric) Category: Medical Plan: Continue to use the CPAP more than 4 hours a night and benefits from this. Orders: Orders Influenza [id number] Immunization Today Z23 - Encounter for immunization Medications: New Fluarix Triv [id number] (PF) (flu vacc [id number] 6mos up(PF)) 0.5 mL IM ONCE 0.5 mL 0RF NS Z23 - Encounter for immunization
--- OUTSIDE RECORDS SUMMARY | 2024-09-26 10:12 | XMS_ITS | Clinical Summary ---
Author Organization [facility] Address [address] [place] [address] [address] [place] [address] Care Team Providers Care Paint Pourer Name Role Phone Unavailable Primary Care Provider [...] Most Recently Relevant to Health Maintenance Insurance [facility] MEDICAID STAND ADULT DENTAL - HSN FULL (MEDICAID)
--- OUTSIDE RECORDS SUMMARY | 2024-09-26 10:12 | XMS_ITS | Encounter Summary ---
Author Organization [facility] Address [address] [place] [address] [address] [place] [address] Care Team Providers Care Puff Iron Operator Name Role Phone Connie Valverde DO Primary Care Provider Encounter Details Date Type Department Care Team (Latest Contact Info) Description 03/08/2021 Abstract [facility] CONVERSIONS Dental, Provider, DDS Social History Tobacco [...] on filedocumented in this encounter Care Teams Puff Iron Operator Relationship Specialty Start Date End Date Connie Valverde DO [address] [place] [id number] PCP - General Family Medicine 06/15/20 07/01/23 documented as of this encounter
== END 2024-09-26 10:21 | disposition home or self-care (01) ==
PROVIDERS: PCP Internal Medicine; Visit Provider Internal Medicine
DX: E26.9 Hyperaldosteronism, unspecified (principal); I10 Essential (primary) hypertension; M41.25 Other idiopathic scoliosis, thoracolumbar region; D64.9 Anemia, unspecified; R73.02 Impaired glucose tolerance (oral); G47.33 Obstructive sleep apnea (adult) (pediatric); Z23 Encounter for immunization

== ENCOUNTER → 2024-09-26 09:27 | Outpatient (BNVA) | payer OTHER, SELFPAY | PROVIDERS: PCP Internal Medicine; Visit Provider Internal Medicine | DX: Z23 Encounter for immunization (principal); E26.9 Hyperaldosteronism, unspecified; I10 Essential (primary) hypertension; M41.25 Other idiopathic scoliosis, thoracolumbar region; D64.9 Anemia, unspecified; R73.02 Impaired glucose tolerance (oral); G47.33 Obstructive sleep apnea (adult) (pediatric) | CPT/HCPCS: 90471; 90656; 96127; 99212 ==

== ENCOUNTER 2024-10-30 08:46 | Outpatient (REF) | payer OTHER, SELFPAY ==
--- OUTSIDE RECORDS SUMMARY | 2024-10-30 09:10 | XMS_ITS | Clinical Summary ---
Author Organization [facility] Address [address] [place] [address] [address] [place] [address] Care Team Providers Care Diamond Merchant Name Role Phone Unavailable Primary Care Provider [...] Most Recently Relevant to Health Maintenance Insurance [facility] MEDICAID STAND ADULT DENTAL - HSN FULL (MEDICAID)
--- OUTSIDE RECORDS SUMMARY | 2024-10-30 09:10 | XMS_ITS | Encounter Summary ---
Author Organization [facility] Address [address] [place] [address] [address] [place] [address] Care Team Providers Care Curing Finisher Name Role Phone Connie Valverde DO Primary Care Provider [phone] Encounter Details Date Type Department Care Team (Latest Contact Info) Description 03/08/[address] [facility] CONVERSIONS Dental, Provider, DDS Social History [...] on filedocumented in this encounter Care Teams Curing Finisher Relationship Specialty Start Date End Date Connie Valverde DO [address] [place] [id number] PCP - General Family Medicine 06/15/20 07/01/23 documented as of this encounter
[2024-10-30 09:45] LABS: Anion Gap 10 (12-20); Blood Urea Nitrogen 12 mg/dL (9-16); Calcium 9.3 mg/dL (8.4-10.2); Carbon Dioxide 30 mmol/L (22-29); Chloride 103 mmol/L (96-108); Estimated Glomerular Filt Rate > 60; Glucose Random 82 mg/dL (60-115); Potassium 3.4 mmol/L (3.3-5.1); Sodium 140 mmol/L (135-145)
== END 2024-10-30 08:47 | disposition home or self-care (01) ==
LOC: HO.LAB 08:46
PROVIDERS: PCP Internal Medicine; Visit Provider Internal Medicine Hypertension Specialist
DX: E87.6 Hypokalemia (principal)
CPT/HCPCS: 36415; 80048

== ENCOUNTER 2024-11-06 09:43 | Outpatient (AMB) | payer OTHER, SELFPAY ==
[2024-11-06 09:46] VITALS: BP 114/70; PULSE 79; O2SAT 96; BMI 26.5
--- NOTE | 2024-11-06 09:46 | HO.NEPHOV_ITS ---
Vital Signs 11/06/24 09:46 Height 5 ft 7 in Weight 169 lb 8 oz BMI 26.5 BP 114/70 Blood Pressure Location Rt brachial Position Sitting Pulse 79 Pulse Source Pulse Oximeter Pulse Oximetry (%) 96 Oxygen Delivery Method Room Air Intake Visit Reasons: Hyperaldosteronism/conf Laborer Construction Or Leak Gang Required: No Accompanied by: Spouse Allergies No Known Allergies Allergy (Verified 11/06/24 09:50) Medication List - Last Reconciled 11/06/24 by Nikolai Michel MD amlodipine 10 mg PO DAILY 90 days ascorbate calcium (vitamin C) 500 mg PO DAILY [AUTO PAP 5-20 cm water humidified Air Sleep study done in August 2024 demonstrated severe obstructive sleep apnea AHI of 31 auto CPAP 5-20 cm water] cholecalciferol (vitamin D3) 50 mcg PO DAILY 90 days CPAP (CPAP Machine/Device) As directed auto PAP 6-16 cm H20 himidified air docusate sodium (Colace) 200 mg PO BEDTIME PRN ferrous sulfate (FeroSul) 325 mg PO DAILY fluticasone propionate 50 mcg/actuation (Flonase Allergy Relief) 2 sprays intranasal DAILY gabapentin 300 mg PO BEDTIME ibuprofen mg PO PRN lactulose 20 grams PO TID PRN lisinopril 40 mg PO DAILY multivitamin 1 tab PO DAILY potassium chloride ER 20 mEq PO BID sennosides-docusate sodium 8.6-50 mg (Senna Plus) 2 tab-caps (2 x 8.6-50 mg) PO BEDTIME tramadol 50 mg PO DAILY zolpidem 5 mg PO BEDTIME PRN Do you need a note to return to daycare/school/sports/work: No HPI Comments Details: Vincenzo is a middle-aged man with these hypertension for more than 15 years. He was diagnosed with hypertension in his early 30s. He since then has been on multiple anti hypertensive medication. Currently is on 2 antihypertensive medications including lisinopril. He is not on any diuretics. He has a history of hypokalemia the potassium 3.0 and mild alkalosis and hence this referral. Lisinopril was held for a week and PA/ PRA was elevated at 146 ! 09/20/23 Doing better ; K is 3.3 07/07/[address] done Results [facility] Medical History Insomnia Insomnia SOB (shortness of breath) History of anemia Colon cancer screening Contusion of left chest wall Cervical myofascial strain Left-sided headache Gallbladder polyp Hepatitis B core antibody positive Hydrocele Insomnia Vitamin D deficiency Allergic rhinitis Obstructive sleep apnea Surgical History History of esophagogastroduodenoscopy (EGD) Hx of colonoscopy Thoracolumbar back pain History of hydrocelectomy History of surgery Family History Father Hypertension Mother Hypertension Maternal Aunt Past heart attack Sister Brain aneurysm Social History Housing: House Alcohol intake: never Patient Tobacco Use Status: Never used Tobacco Tobacco use type: Cigarette e-Cigarette/Vaping Use: Never Used Second Hand Smoke Exposure: Yes service: No Current occupational status: unemployed Cognitive needs: No Hearing needs: No Vision needs: Yes (reading glasses ) Physical Exam Vital Signs: BMI result Body Mass Index 26.5 Comfortable Neck supple no JVD. Lungs entry equal no rales. Heart S1-S2 heard no gallop or rub. Abdomen soft nontender. Neuro alert awake oriented. No asterixis. Extremities no edema. Results Reviewed Nephrology Results: Hgb 13.3 g/dl (14.0-18.0) L 09/10/24 WBC 4.1 X10*3/uL (4.8-10.8) L 09/10/24 Plt Count 220 X10*3/uL (160-400) 09/10/24 Sodium 140 mmol/L (135-145) 10/30/24 Potassium 3.4 mmol/L (3.3-5.1) 10/30/24 Chloride 103 mmol/L (96-108) 10/30/24 Carbon Dioxide 30 mmol/L (22-29) H 10/30/24 BUN 12 mg/dL (9-16) 10/30/24 Creatinine 0.90 mg/dL (0.5-1.4) 10/30/24 Calcium 9.3 mg/dL (8.4-10.2) 10/30/24 Urine Protein Trace mg/dL (Neg-Trace) 09/10/24 Assessment & Plan Assessment & Plan (1) Hyperaldosteronism: Comment: CT scan right adrenal nodule consistent with adenoma Code(s): E26.9 - Hyperaldosteronism, unspecified Category: Medical (2) HTN (hypertension): Code(s): I10 - Essential (primary) hypertension Category: Medical Qualifiers: Hypertension type: essential hypertension Qualified Code(s): I10 - Essential (primary) hypertension (3) Hypokalemia: Code(s): E87.6 - Hypokalemia Category: Medical Plan Middle-aged man with longstanding hypertension who has mild hypokalemia with alkalosis. Currently is not on diuretics. At the present time serum potassium is still low. Renal function stable. Blood pressure is well controlled. PA/PRA was elevated at 146 after stopping Lisiniopril for 1 week Serum aldosterone was 27 suggestive of hyperaldosteronism. He had a CT scan in 2021 which was reported as normal adrenal glands. Repeat CT of the adrenals suggestive of ADENOMA - Follow up CT scanin Jun 2024 showed R adrenal nodule of 1.4 cm ( down from 1.7 cm in Aug 2023 ?) Will repeat CT scan in 12 months ( Jun 2025) Underwent adrenal vein sampling No clear lateralization Keep potassium chloride 20 mEq p.o. BID. Goal is to maintain serum potassium 3.5 millimoles Orders: Orders CT abdomen pelvis wo IV con 8 Months E26.9 - Hyperaldosteronism, unspecified Coding Level of Care Code Est Pt Level 4 (81077) Diagnoses Hyperaldosteronism E26.9 Essential hypertension I10 Hypertension type: essential hypertension Hypokalemia E87.6
--- OUTSIDE RECORDS SUMMARY | 2024-11-06 11:11 | XMS_ITS | Clinical Summary ---
Author Organization [facility] Address [address] [place] [address] [address] [place] [address] Care Team Providers Care Investment Analyst Name Role Phone Unavailable Primary Care Provider [...] Most Recently Relevant to Health Maintenance Insurance [facility]AL-[facility] MEDICAID STAND ADULT DENTAL - HSN FULL (MEDICAID)
--- OUTSIDE RECORDS SUMMARY | 2024-11-06 11:11 | XMS_ITS | Encounter Summary ---
Author Organization [facility] Address [address] [place] [address] [address] [place] [address] Care Team Providers Care Steel Plate Caulker Name Role Phone Connie Valverde DO Primary Care Provider Encounter Details Date Type Department Care Team (Latest Contact Info) Description 03/08/2021 Abstract [facility] CONVERSIONS Dental, Provider, DDS Social History [...] on filedocumented in this encounter Care Teams Steel Plate Caulker Relationship Specialty Start Date End Date Connie Valverde DO [address] [place] [id number] PCP - General Family Medicine 06/15/20 07/01/23 documented as of this encounter
== END 2024-11-06 10:06 | disposition home or self-care (01) ==
LOC: HO.HKA 09:44
PROVIDERS: PCP Internal Medicine; Visit Provider Internal Medicine Hypertension Specialist
DX: E26.9 Hyperaldosteronism, unspecified (principal); I10 Essential (primary) hypertension; E87.6 Hypokalemia
CPT/HCPCS: 99214

== ENCOUNTER → 2024-11-06 09:43 | Outpatient (BNVA) | payer OTHER, SELFPAY | PROVIDERS: PCP Internal Medicine; Visit Provider Internal Medicine Hypertension Specialist | DX: I10 Essential (primary) hypertension (principal); E26.9 Hyperaldosteronism, unspecified; E87.6 Hypokalemia; Z79.899 Other long term (current) drug therapy | CPT/HCPCS: 99212 ==

== ENCOUNTER 2025-01-02 08:35 | Outpatient (AMB) | payer OTHER, SELFPAY ==
--- NOTE | 2025-01-02 08:41 | MHC.PC.OV ---
Vital Signs 01/02/25 08:43 Height 5 ft 7 in Weight 169 lb BMI 26.5 BP 138/72 Blood Pressure Location Lt brachial Position Sitting Pulse 77 Pulse Source Pulse Oximeter Temp 97.3 F Temp Source Temporal Artery Scan Pulse Oximetry (%) 94 Oxygen Delivery Method Room Air Intake Visit Reasons: 3mth f/u Intake Note: Patient is here to follow up on HTN, SELINA. Finished Cloth Checker Required: No Screen And Cyclone Repairer: Not Required per policy Accompanied by: Self / Same As Patient Allergies No Known Allergies Allergy (Verified 01/02/25 08:43) Tobacco use date assessed: 01/02/25 Dental Screening Dental Screen Date: 07/30/24 [facility] Medical History Insomnia Insomnia SOB (shortness of breath) History of anemia Colon cancer screening Contusion of left chest wall Cervical myofascial strain Left-sided headache Gallbladder polyp Hepatitis B core antibody positive Hydrocele Insomnia Vitamin D deficiency Allergic rhinitis Obstructive sleep apnea Surgical History History of esophagogastroduodenoscopy (EGD) Hx of colonoscopy Thoracolumbar back pain History of hydrocelectomy History of surgery Family History Father Hypertension Mother Hypertension Maternal Aunt Past heart attack Sister Brain aneurysm Social History Housing: House Alcohol intake: never Patient Tobacco Use Status: Never used Tobacco Tobacco use type: Cigarette e-Cigarette/Vaping Use: Never Used Second Hand Smoke Exposure: Yes service: No Current occupational status: unemployed Cognitive needs: No Hearing needs: No Vision needs: Yes (reading glasses ) Questionnaire Thrive Questionnaire Date Thrive assessed: 07/30/24 AMISH-7 AMB Questionnaire AMISH-7 Date AMISH - 7 assessed: 07/30/24 Source: Developed by Drs. Igor Sheehan, Perri Robin, Bakari Olivarez and colleagues, with an educational daniele from [employer]. Physical exam (Primary Care) Vital Signs: Last Vital Signs Temp 97.3 F 01/02/25 08:43 Pulse 77 01/02/25 08:43 BP 138/72 01/02/25 08:43 Pulse Ox 94 01/02/25 08:43 Oxygen Delivery Method Room Air 01/02/25 08:43 BMI result Body Mass Index 26.5 Tobacco/Smoking Status: Tobacco use Status Tobacco use date assessed 01/02/25 01/02/25 08:48 Patient Tobacco Use Status Never used Tobacco 01/02/25 08:48 Tobacco use type Cigarette 01/02/25 08:48 e-Cigarette/Vaping Use Never Used 01/02/25 08:48 Thrive Assessment: Date of Thrive Assessment Date Thrive assessed 07/30/24 01/02/25 08:48 Const General: alert; No acute distress Eyes Conjunctivae: conjunctivae normal Resp Auscultation: clear to auscultation bilaterally Cardio Rate: regular rate Rhythm: regular rhythm GI Inspection: Yes normal to inspection Extrem General: Yes normal to inspection and No edema Coding Level of Care Code Est Pt Level 4 (46564) Complex EM visit Add On G2211 Diagnoses Impaired glucose tolerance R73.02 Hyperaldosteronism E26.9 Essential hypertension I10 Hypertension type: essential hypertension Thoracolumbar back pain M54.5; M54.6 Obstructive sleep apnea G47.33 Assessment & Plan Assessment & Plan (1) Impaired glucose tolerance: Code(s): R73.02 - Impaired glucose tolerance (oral) Category: Medical Plan: Decrease the amount of carbohydrate intake, pasta, bread, rice and potatoes are all sugar and that is aside from all the sweet stuff, remember that fruits are good but they are Sweet also. (2) Hyperaldosteronism: Comment: CT scan right adrenal nodule consistent with adenoma June 2024 Code(s): E26.9 - Hyperaldosteronism, unspecified Category: Medical Plan: Patient is being followed up by Nephrology and repeat CAT scan in June 2025 advised to continue with potassium and keeping potassium 3.5. Patient needs blood work. (3) HTN (hypertension): Code(s): I10 - Essential (primary) hypertension Category: Medical Qualifiers: Hypertension type: essential hypertension Qualified Code(s): I10 - Essential (primary) hypertension Plan: Continue with blood pressure medication. 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 Yojana Verduzco Code(s): M54.5 - Low back pain; M54.6 - Pain in thoracic spine Category: Surgical Plan: Continue with present medication as needed (5) Obstructive sleep apnea: Comment: AHI 20 O2 lauren 80% Sleep study done in August 2024 demonstrated severe obstructive sleep apnea AHI of 31 auto CPAP 5-20 cm water Code(s): G47.33 - Obstructive sleep apnea (adult) (pediatric) Category: Medical Plan: discussed the need to use the CPAP. Plan History of Present Illness The patient is a 49-year-old male presenting with management of obstructive sleep apnea. The patient has a history of severe obstructive sleep apnea, which has been managed with CPAP therapy, although adherence has been inconsistent. He reports using the CPAP device intermittently, often for less than the recommended duration, which has been a challenge due to discomfort. The patient also presents with hypertension, which is currently managed with amlodipine 10 mg once daily and lisinopril 40 mg once daily. He has been advised to continue with his current antihypertensive regimen. Additionally, the patient has a right adrenal nodule, which is being monitored with periodic CT scans. He has been advised to continue potassium supplementation to manage mild hypokalemia associated with hyperaldosteronism. The patient has a history of anemia, with recent blood work indicating mild microcytic anemia with a hemoglobin level of 13.3 g/dL. His potassium levels have been slightly low at 3.4 mmol/L, despite normal renal function. Health Maintenance - Colonoscopy last performed in September 2022 - Advised to check insurance coverage for shingles vaccination Social History Review of Systems - General: Reports difficulty adhering to CPAP therapy due to discomfort. - Cardiovascular: Denies swelling. Physical Exam - General: No swelling noted Results - Labs: Mild microcytic anemia with hemoglobin 13.3 g/dL, potassium 3.4 mmol/L, normal renal function, blood sugar normal, cholesterol 110 mg/dL. Plan The patient is advised to continue using CPAP therapy for obstructive sleep apnea, aiming for more than 4 hours per night to prevent cardiovascular complications such as atrial fibrillation. He is encouraged to follow up with sleep management specialists to address adherence issues and consider alternative treatments if necessary. For hypertension, the patient should continue with his current medications, including amlodipine and lisinopril, and monitor blood pressure regularly. Regular follow-up appointments are recommended to assess the effectiveness of the treatment regimen. The right adrenal nodule requires ongoing monitoring with CT scans, and the patient should continue potassium supplementation to manage hypokalemia. He should maintain regular nephrology follow-ups to monitor renal function and electrolyte balance. Patient was informed and verbally consented to the use of an ambient scribe for clinic note documentation during this visit. Discussion Notes I discussed with the patient the importance of adhering to CPAP therapy for obstructive sleep apnea to prevent cardiovascular complications such as atrial fibrillation. We also talked about the need for regular follow-ups with sleep management specialists to address any issues with CPAP adherence. For hypertension, I emphasized the importance of continuing current medications and monitoring blood pressure regularly. We agreed on the necessity of regular follow-up appointments to evaluate treatment effectiveness. Regarding the right adrenal nodule, I advised ongoing monitoring with CT scans and continuation of potassium supplementation. I recommended maintaining regular nephrology follow-ups to ensure stable renal function and electrolyte balance. Patient Instructions - Use CPAP machine for more than 4 hours each night. - Follow up with sleep management specialists for CPAP adherence issues. - Continue taking amlodipine and lisinopril as prescribed. - Monitor blood pressure regularly. - Attend regular follow-up appointments to assess treatment effectiveness. - Continue potassium supplementation as advised. - Maintain regular nephrology follow-ups. Orders: Orders Complete Blood Count Auto Diff Today E26.9 - Hyperaldosteronism, unspecified Reticulocyte Count Today E26.9 - Hyperaldosteronism, unspecified Hemoglobin A1c Today R73.02 - Impaired glucose tolerance (oral) Comprehensive Met. Panel Today R73.02 - Impaired glucose tolerance (oral) IRON PROFILE Today E26.9 - Hyperaldosteronism, unspecified Ferritin Today E26.9 - Hyperaldosteronism, unspecified Vitamin B12 and Folate Today E26.9 - Hyperaldosteronism, unspecified Medications: Refilled lisinopril 40 mg PO DAILY 90 tabs 1RF I10 - Essential (primary) hypertension amlodipine 10 mg PO DAILY 90 days 90 tabs 1RF I10 - Essential (primary) hypertension cholecalciferol (vitamin D3) 50 mcg PO DAILY 90 days 90 caps 3RF E55.9 - Vitamin D deficiency, unspecified ascorbate calcium (vitamin C) 500 mg PO DAILY 90 tabs 1RF D50.9 - Iron deficiency anemia, unspecified multivitamin 1 tab PO DAILY 90 tabs 2RF E26.9 - Hyperaldosteronism, unspecified
[2025-01-02 08:43] VITALS: BP 138/72; PULSE 77; TEMP 36.3; O2SAT 94; BMI 26.5
--- OUTSIDE RECORDS SUMMARY | 2025-01-02 08:45 | XMS_ITS | Encounter Summary ---
Author Organization [facility] Address [address] [place] [address] Care Team Providers Care Developmental Specialist Name Role Phone Connie Valverde DO Primary Care Provider [phone] Encounter Details Date Type Department Care Team (Latest Contact Info) Description 03/08/2021 Abstract [facility] CONVERSIONS Dental, Provider, DDS Social History [...] on filedocumented in this encounter Care Teams Developmental Specialist Relationship Specialty Start Date End Date Connie Valverde DO [address] [place] [address] PCP - General Family Medicine 06/15/20 07/01/23 documented as of this encounter
== END 2025-01-02 09:27 | disposition home or self-care (01) ==
LOC: HO.HMCH 08:35
PROVIDERS: PCP Internal Medicine; Visit Provider Internal Medicine
DX: R73.02 Impaired glucose tolerance (oral) (principal); E26.9 Hyperaldosteronism, unspecified; I10 Essential (primary) hypertension; M54.50 Low back pain, unspecified; M54.6 Pain in thoracic spine; G47.33 Obstructive sleep apnea (adult) (pediatric)

== ENCOUNTER 2025-01-02 08:35 | Outpatient (REF) | payer OTHER, SELFPAY ==
[2025-01-02 10:20] LABS: MANUAL DIFF FLAG NO
[2025-01-02 10:39] LABS: Basophils Absolute Auto 0.1 X10*3/uL (0.0-0.2); Basophils Percent Auto 0.9 % (0-2); Eosinophils Absolute Auto 0.1 X10*3/uL (0.0-0.4); Hematocrit 40.4 % (42.0-52.0); Hemoglobin 13.4 g/dl (14.0-18.0); Imm Gran Abs Auto 0.01 X10*3/uL (0.00-0.03); Imm Gran Pct Auto 0.2 % (0.0-0.4); Immature Retic Fraction 6.6 % (2.3-13.4); Lymphocytes Percent Auto 36.2 % (20-40); Mean Corpuscular HGB Conc 33.2 g/dl (31.0-36.0); Mean Corpuscular Hemoglobin 26.8 pg (27.0-33.0); Mean Corpuscular Volume 80.8 fL (80.0-98.0); Mean Platelet Volume 11.7 fL (9.4-12.4); Monocytes Absolute Auto 0.5 X10*3/uL (0.1-1.2); Monocytes Percent Auto 8.7 % (2-11); Neutrophils Absolute Auto 2.9 x10*3/uL (2.0-8.3); Platelet Count 230 X10*3/uL (160-400); Red Cell Distribution Width 14.9 % (11.0-16.0); Retic HGB Equivalent 30.9 pg (30.0-35.0); Reticulocyte Percent 1.1 % (0.5-1.8); Reticulocytes Absolute 0.056 X10*6/uL (0.026-0.095); White Blood Count 5.6 X10*3/uL (4.8-10.8)
[2025-01-02 10:51] LABS: Estimated Average Glucose 114 mg/dL; Hemoglobin A1c % 5.6 % (<6.0); Total Hemoglobin (HGBA1C) 3487.2495 umol/L
[2025-01-02 11:19] LABS: Alanine Aminotransferase 23 U/L (0-40); Albumin Level 4.6 g/dL (3.5-5.0); Alkaline Phosphatase 65 U/L (39-117); Anion Gap 10 (12-20); Aspartate Amino Transferase 20 U/L (5-37); Bilirubin Total 0.5 mg/dL (0.0-1.0); Blood Urea Nitrogen 12 mg/dL (9-16); Carbon Dioxide 31 mmol/L (22-29); Chloride 103 mmol/L (96-108); Estimated Glomerular Filt Rate > 60; Glucose Random 85 mg/dL (60-115); Iron 119 mcg/dL (45-160); Percent Iron Saturation 43 % (15-50); Potassium 3.4 mmol/L (3.3-5.1); Sodium 141 mmol/L (135-145); Total Iron Binding Capacity 278 mcg/dL (228-428); Total Protein 7.5 g/dL (6.5-8.0); Unsaturated Iron Binding 159 ug/dL
[2025-01-02 11:22] LABS: Ferritin 29 ng/mL (20-250)
[2025-01-02 11:35] LABS: Folate 8.1 ng/mL (> or = 4.0); Vitamin B12 993 pg/mL (200-900)
== END 2025-01-02 08:36 | disposition home or self-care (01) ==
LOC: HO.LAB 08:35
PROVIDERS: PCP Internal Medicine; Visit Provider Internal Medicine
DX: R73.02 Impaired glucose tolerance (oral) (principal); E26.9 Hyperaldosteronism, unspecified; I10 Essential (primary) hypertension; M54.50 Low back pain, unspecified; M54.6 Pain in thoracic spine; G47.33 Obstructive sleep apnea (adult) (pediatric)
CPT/HCPCS: 36415; 80053; 82607; 82728; 82746; 83036; 83540; 85025; 85045; 99212

== ENCOUNTER 2025-04-29 14:51 | Outpatient (AMB) | payer OTHER, SELFPAY ==
[2025-04-29 14:59] VITALS: BP 130/92; PULSE 83; TEMP 36.4; O2SAT 96; BMI 26.8
--- NOTE | 2025-04-29 14:59 | MHC.PC.OV ---
Vital Signs 04/29/25 14:59 Height 5 ft 7 in Weight 171 lb 4 oz BMI 26.8 BP 130/92 H Blood Pressure Location Lt brachial Position Sitting Pulse 83 Pulse Source Pulse Oximeter Temp 97.5 F Temp Source Temporal Artery Scan Pulse Oximetry (%) 96 Oxygen Delivery Method Room Air Intake Visit Reasons: hyperaldosteronism, SELINA Allergies No Known Allergies Allergy (Verified 04/29/25 15:01) Medication List - Last Reconciled 04/29/25 by Lily Bae MD amlodipine 10 mg PO DAILY 90 days ascorbate calcium (vitamin C) 500 mg PO DAILY [AUTO PAP 5-20 cm water humidified Air Sleep study done in August 2024 demonstrated severe obstructive sleep apnea AHI of 31 auto CPAP 5-20 cm water] cholecalciferol (vitamin D3) 50 mcg PO DAILY 90 days CPAP (CPAP Machine/Device) As directed auto PAP 6-16 cm H20 himidified air docusate sodium (Colace) 200 mg PO BEDTIME PRN ferrous sulfate (FeroSul) 325 mg PO DAILY fluticasone propionate 50 mcg/actuation (Flonase Allergy Relief) 2 sprays intranasal DAILY gabapentin 300 mg PO BEDTIME ibuprofen mg PO PRN lactulose 20 grams PO TID PRN lisinopril 40 mg PO DAILY multivitamin 1 tab PO DAILY polyethylene glycol 3350 (Miralax) 17 grams PO DAILY potassium chloride ER 20 mEq PO BID sennosides-docusate sodium 8.6-50 mg (Senna Plus) 2 tab-caps (2 x 8.6-50 mg) PO BEDTIME tramadol 50 mg PO DAILY zolpidem 5 mg PO BEDTIME PRN Tobacco use date assessed: 04/29/25 Dental Screening Dental Screen Date: 04/29/25 Did you have a dental visit in the last 12 months?: Yes Did you have a dental problem in the last 6 months where you did not have access to dental care?: No Was dental information given to patient?: Patient has dentist [facility] Medical History Insomnia Insomnia SOB (shortness of breath) History of anemia Colon cancer screening Contusion of left chest wall Cervical myofascial strain Left-sided headache Gallbladder polyp Hepatitis B core antibody positive Hydrocele Insomnia Vitamin D deficiency Allergic rhinitis Obstructive sleep apnea Surgical History History of esophagogastroduodenoscopy (EGD) Hx of colonoscopy Thoracolumbar back pain History of hydrocelectomy History of surgery Family History Father Hypertension Mother Hypertension Maternal Aunt Past heart attack Sister Brain aneurysm Social History Housing: House Alcohol intake: never Patient Tobacco Use Status: Never used Tobacco Tobacco use type: Cigarette e-Cigarette/Vaping Use: Never Used Second Hand Smoke Exposure: Yes service: No Current occupational status: unemployed Cognitive needs: No Hearing needs: No Vision needs: Yes (reading glasses ) Questionnaire PHQ-9 Over the last 2 weeks, how often have you been bothered by any of the following problems? 1. Little interest or pleasure in doing things: not at all 2. Feeling down, depressed, or hopeless: not at all 3. Trouble falling or staying asleep, or sleeping too much: not at all 4. Feeling tired or having little energy: not at all 5. Poor appetite or overeating: not at all 6. Feeling bad about yourself - or that you are a failure or have let yourself or your family down: not at all 7. Trouble concentrating on things, such as reading the newspaper or watching television: not at all 8. Moving or speaking so slowly that other people could have noticed. Or the opposite - being so fidgety or restless that you have been moving around a lot more than usual: not at all 9. Thoughts that you would be better off or of hurting yourself in some way: not at all Total score: 0 Depression Screening Interpretation: Negative Depression Screening Done: Yes Source: Developed by Drs. Igor Sheehan, Perri Robin, Bakari Olivarez and colleagues, with an educational daniele from [employer]. Thrive Questionnaire Date Thrive assessed: 07/30/24 I am a: Patient What is your living situation today?: I have a steady place to live Within the past 12 months, did the food you bought not last and you didn't have the money to get more?: Never true Within the past 12 months, did you worry whether your food would run out before you got money to buy more?: Never true Do you have trouble paying for medicines?: No Do you have trouble getting transportation to medical appointments?: No Do you have trouble paying your heating and electricity bill?: No Do you have trouble taking care of your child, family member or friend?: No Do you have trouble with day-to-day activities such as bathing, preparing meals, shopping, managing finances, etc.?: No Are you currently unemployed and looking for a job?: No Are you interested in more education?: No Currently or been in a relationship where the following occur: No concerns reported THRIVE Score: 0 AUDIT C Alcohol Use Questionnaire (AUDIT-C) 1. How often do you have a drink containing alcohol?: Never 3. How often do you have six or more drinks on one occasion?: Never Total Score: 0 AMISH-7 AMB Questionnaire AMISH-7 Date AMISH - 7 assessed: 07/30/24 Feeling nervous, anxious, or on edge: 0 = Not at all Not being able to stop or control worryin = Not at all Worrying too much about different things: 0 = Not at all Trouble relaxin = Not at all Being so restless that it is hard to sit still: 0 = Not at all Becoming easily annoyed or irritable: 0 = Not at all Feeling afraid as if something awful might happen: 0 = Not at all Total AMISH-7 score (0-4 normal; 5-9 mild; 10-14 moderate; 15-21 severe): 0 Source: Developed by Drs. Igor Sheehan, Perri Robin, Bakari Olivarez and colleagues, with an educational daniele from [employer]. Physical exam (Primary Care) Vital Signs: Last Vital Signs Temp 97.5 F 04/29/25 14:59 Pulse 83 04/29/25 14:59 BP 130/92 H 04/29/25 14:59 Pulse Ox 96 04/29/25 14:59 Oxygen Delivery Method Room Air 04/29/25 14:59 BMI result Body Mass Index 26.8 Tobacco/Smoking Status: Tobacco use Status Tobacco use date assessed 04/29/25 04/29/25 15:02 Patient Tobacco Use Status Never used Tobacco 04/29/25 15:02 Tobacco use type Cigarette 04/29/25 15:02 e-Cigarette/Vaping Use Never Used 04/29/25 15:02 PHQ-9: PHQ-9 Score PHQ-9: Total score 0 04/29/25 15:02 Depression Screening Interpretation: Negative Thrive Assessment: Date of Thrive Assessment Date Thrive assessed 07/30/24 04/29/25 15:02 Currently or been in a relationship where the following occur: No concerns reported Const General: alert; No acute distress Eyes Conjunctivae: conjunctivae normal Resp Auscultation: clear to auscultation bilaterally Cardio Rate: regular rate Rhythm: regular rhythm GI Inspection: Yes normal to inspection Extrem General: Yes normal to inspection and No edema Coding Level of Care Code Est Pt Level 4 (59503) Complex EM visit Add On G2211 Diagnoses Essential hypertension I10 Hypertension type: essential hypertension Hyperaldosteronism E26.9 Impaired glucose tolerance R73.02 Generalized anxiety disorder F41.1 Thoracolumbar back pain M54.5; M54.6 Obstructive sleep apnea G47.33 Assessment & Plan Assessment & Plan (1) HTN (hypertension): Code(s): I10 - Essential (primary) hypertension Category: Medical Qualifiers: Hypertension type: essential hypertension Qualified Code(s): I10 - Essential (primary) hypertension Plan: Continue with blood pressure medication. Decrease salt intake and exercise on amlodipine 10 mg once a day lisinopril 40 mg once a day patient was placed on potassium 20 mEq twice a day (2) Hyperaldosteronism: Comment: CT scan right adrenal nodule consistent with adenoma June 2024 Code(s): E26.9 - Hyperaldosteronism, unspecified Category: Medical Plan: Patient is being followed up by Nephrology. Patient was advised to have a repeat CT scan in June (3) Impaired glucose tolerance: Code(s): R73.02 - Impaired glucose tolerance (oral) Category: Medical Plan: Decrease the amount of carbohydrate intake, pasta, bread, rice and potatoes are all sugar and that is aside from all the sweet stuff, remember that fruits are good but they are Sweet also. (4) Generalized anxiety disorder: Code(s): F41.1 - Generalized anxiety disorder Category: Medical Plan: Stable (5) Thoracolumbar back pain: Comment: prosthetic joint fusion of spine of thoracolumbar region surgery 11/09/2021 removal of thoracolumbar spine implants left and right sides posterior bilateral surgeon Dr. Yojana Verduzco Code(s): M54.5 - Low back pain; M54.6 - Pain in thoracic spine Category: Surgical Plan: Advised to continue being active (6) Obstructive sleep apnea: Comment: AHI 20 O2 lauren 80% Sleep study done in August 2024 demonstrated severe obstructive sleep apnea AHI of 31 auto CPAP 5-20 cm water Code(s): G47.33 - Obstructive sleep apnea (adult) (pediatric) Category: Medical Plan: Discussed about CPAP, uses the CPAP 2-4 hours and advised need to use CPAP Plan History of Present Illness The patient is a 49-year-old male presenting for management of multiple chronic conditions including hypertension, hyperaldosteronism, and obstructive sleep apnea. The patient has a history of severe scoliosis, which has required surgical intervention in the past due to significant pain and anatomical distortion. This condition has impacted his overall physical function and contributes to his chronic pain issues. He also suffers from obstructive sleep apnea, for which he uses a CPAP machine nightly, although adherence is variable with usage often less than the recommended four hours per night. This condition affects his cardiovascular health, and there is a need for improved compliance with CPAP therapy. The patient has been diagnosed with generalized anxiety disorder, which is managed alongside his other conditions. Hypertension is managed with amlodipine and lisinopril, and he is also on potassium supplementation due to hyperaldosteronism. His blood pressure management is stable, and he is under nephrology care for his hyperaldosteronism. The patient has impaired glucose tolerance, and recent blood work showed mild anemia with normal renal and liver function. Cholesterol and thyroid function tests were normal in the past year. Health Maintenance - Colon cancer screening completed in September 2022 - Blood work including electrolytes and renal function to be repeated within a month - Flu vaccination recommended for June - Shingles vaccination completed recently Social History - Exercise: Patient attempts to stay active by walking and using a treadmill, but is limited by pain and physical constraints. Review of Systems - Respiratory: Reports use of CPAP for obstructive sleep apnea, but less than recommended duration. - Musculoskeletal: Reports chronic pain due to severe scoliosis. - Cardiovascular: Denies any new symptoms related to hypertension. Physical Exam Results - Labs: Mild anemia with hemoglobin 13.4 g/dL, hematocrit 40.4%. - Labs: Normal renal function with creatinine 1.01 mg/dL. - Labs: Normal liver function tests. - Labs: Normal thyroid function tests. - Labs: Cholesterol level at 110 mg/dL as of August 2024. Plan Patient was informed and verbally consented to the use of an ambient scribe for clinic note documentation during this visit. 1. Severe Scoliosis The patient has a history of severe scoliosis, which has required surgical intervention in the past due to significant pain and anatomical distortion. Pain management is a concern, and a referral to pain management services is planned to explore non-pharmacological options. 2. Obstructive Sleep Apnea The patient uses a CPAP machine for obstructive sleep apnea, but adherence is less than optimal. Improved compliance with CPAP therapy is necessary to mitigate cardiovascular risks. 3. Generalized Anxiety Disorder The patient is diagnosed with generalized anxiety disorder, which is managed alongside his other conditions. 4. Hypertension Hypertension is managed with amlodipine and lisinopril, and the patient's blood pressure is stable. 5. Hyperaldosteronism The patient is under nephrology care for hyperaldosteronism and is on potassium supplementation. A repeat CT scan of the adrenals is planned for June to monitor the condition. 6. Impaired Glucose Tolerance The patient has impaired glucose tolerance, and recent blood work showed normal blood sugar levels. Discussion Notes During the visit, we discussed the importance of adhering to CPAP therapy for obstructive sleep apnea to reduce cardiovascular risks. I emphasized the need for regular follow-up with nephrology for hyperaldosteronism and the upcoming CT scan in June. We also talked about the management of hypertension with current medications and the stable status of the patient's blood pressure. I recommended a referral to pain management services to address chronic pain related to scoliosis. Additionally, we reviewed the patient's recent lab results and the plan for repeat blood work within a month. Patient Instructions - Use CPAP machine for at least four hours each night to improve sleep apnea management. - Continue taking prescribed medications for hypertension and hyperaldosteronism. - Follow up with nephrology as scheduled and complete the CT scan in June. - Schedule and complete blood work within the next month. - Consider getting a flu shot in June. - Engage in regular physical activity as tolerated, considering pain limitations. Orders: Orders Comprehensive Met. Panel Today E26.9 - Hyperaldosteronism, unspecified Thyroid Stimulating Hormone Today E26.9 - Hyperaldosteronism, unspecified Free T4 (Free Thyroxine) Today E26.9 - Hyperaldosteronism, unspecified Vitamin B12 and Folate Today E26.9 - Hyperaldosteronism, unspecified Hemoglobin A1c Today E26.9 - Hyperaldosteronism, unspecified Mumps Virus IgG Antibody Today E26.9 - Hyperaldosteronism, unspecified, Z02.0 - Encounter for examination for admission to [facility] Magnesium Today E26.9 - Hyperaldosteronism, unspecified Complete Blood Count Auto Diff Today E26.9 - Hyperaldosteronism, unspecified Lipid Panel Today E26.9 - Hyperaldosteronism, unspecified, E78.00 - Pure hypercholesterolemia, unspecified Prostate Specific Antigen Scr Today E26.9 - Hyperaldosteronism, unspecified Referrals Pain Management Referral M54.5 - Low back pain, M54.6 - Pain in thoracic spine Medications: New polyethylene glycol 3350 (Miralax) 17 grams PO DAILY 100 ea 0RF E26.9 - Hyperaldosteronism, unspecified
== END 2025-04-29 15:39 | disposition home or self-care (01) ==
LOC: HO.HMCH 14:52
PROVIDERS: PCP Internal Medicine; Visit Provider Internal Medicine
DX: I10 Essential (primary) hypertension (principal); E26.9 Hyperaldosteronism, unspecified; R73.02 Impaired glucose tolerance (oral); F41.1 Generalized anxiety disorder; M54.50 Low back pain, unspecified; M54.6 Pain in thoracic spine; G47.33 Obstructive sleep apnea (adult) (pediatric)

== ENCOUNTER → 2025-04-29 14:51 | Outpatient (BNVA) | payer OTHER, SELFPAY | PROVIDERS: PCP Internal Medicine; Visit Provider Internal Medicine | DX: I10 Essential (primary) hypertension (principal); E26.9 Hyperaldosteronism, unspecified; R73.02 Impaired glucose tolerance (oral); F41.1 Generalized anxiety disorder; M54.50 Low back pain, unspecified; M54.6 Pain in thoracic spine; G47.33 Obstructive sleep apnea (adult) (pediatric); M41.9 Scoliosis, unspecified; Z79.899 Other long term (current) drug therapy; Z13.31 Encounter for screening for depression | CPT/HCPCS: 96127; 99212 ==

== ENCOUNTER 2025-05-29 11:13 | Outpatient (AMB) | payer OTHER, SELFPAY ==
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
[2025-05-29 11:20] VITALS: BP 123/78; PULSE 87; O2SAT 99; BMI 26.8
--- OUTSIDE RECORDS SUMMARY | 2025-05-29 13:36 | XMS_ITS | Clinical Summary ---
Author Organization [employer] [facility] Address [address] [place] [address] [address] [place] [address] Care Team Providers Care Life Advisor Name Role Phone Unavailable Primary Care Provider [...] Panel 1973 SDOH Screening 1973 Sigmoidoscopy 1973 Disability Screening 1973 Alcohol/Substance Use Screening 1985 Family Planning (PISQ) 1988 Hepatitis C Screening 1991 Hepatitis B Vaccines (1 of 3 - 19+ 3-dose series) 1992 DTaP/Tdap/Td Vaccines (1 - Tdap) 06/30/2017 06/29/2017 Pneumococcal Vaccine: 50+ Years (1 of 1 - PCV) 2023 Zoster Vaccines (1 of 2) 2023 Tobacco Screening 10/27/2023 10/26/2022 Dental X-Ray: Bitewings 10/28/2023 10/26/2022 COVID-19 Vaccine (3 - 2024-2 6 season) 2025 02/16/2021, 01/26/2021 Influenza Vaccine (#1) 2025 RSV Patients and Patients Aged 60 years [...] patient's age to complete this topic Meningococcal B Vaccine Aged Out No l onger eligible based on patient's age to complete [...] Maintenance Insurance [facility] STAND ADULT DENTAL - HSN FULL (MEDICAID)
--- OUTSIDE RECORDS SUMMARY | 2025-05-29 13:36 | XMS_ITS | Encounter Summary ---
Author Organization [facility] Address [address] [place] [address] Care Team Providers Care Sales Floor Manager Name Role Phone Connie Valverde DO Primary Care Provider [phone] Encounter Details Date Type Department Care Team [...] on filedocumented in this encounter Care Teams Sales Floor Manager Relationship Specialty Start Date End Date Connie Valverde DO [address] [place] [address] PCP - General Family Medicine 06/15/20 07/01/23 documented as of this encounter
== END 2025-05-29 11:44 | disposition home or self-care (01) ==
LOC: HO.PMC 11:14
PROVIDERS: PCP Internal Medicine; Visit Provider Nurse Practitioner Family
DX: M41.25 Other idiopathic scoliosis, thoracolumbar region (principal); M54.50 Low back pain, unspecified; M54.6 Pain in thoracic spine; M96.1 Postlaminectomy syndrome, not elsewhere classified; M62.830 Muscle spasm of back; M47.816 Spondylosis without myelopathy or radiculopathy, lumbar region
CPT/HCPCS: 99204

== ENCOUNTER → 2025-05-29 11:13 | Outpatient (BNVA) | payer OTHER, SELFPAY | PROVIDERS: PCP Internal Medicine; Visit Provider Nurse Practitioner Family | DX: M96.1 Postlaminectomy syndrome, not elsewhere classified (principal); M51.360 Other intervertebral disc degeneration, lumbar region with discogenic back pain only; M41.25 Other idiopathic scoliosis, thoracolumbar region; M62.830 Muscle spasm of back; M47.816 Spondylosis without myelopathy or radiculopathy, lumbar region | CPT/HCPCS: 99202 ==

== ENCOUNTER 2025-06-04 09:53 | Outpatient (REF) | payer OTHER, SELFPAY ==
--- NOTE | ~2025-06-04 | XR_ITS ---
EXAMINATION: XR THORACIC SPINE CLINICAL INFORMATION: M41.25 - Other idiopathic scoliosis, thoracolumbar region COMPARISON: Thoracic spine 01/11/2022 TECHNIQUE: 3 views of the thoracic spine were obtained. FINDINGS: Dorsal spine: There is rotoscoliosis of mid dorsal spine. The vertebral heights, alignment and disc heights are normal. No obvious visible acute fracture, dislocation or subluxation seen. The paravertebral soft tissues are normal. lumbar spine: There is mild levoscoliosis with somewhat maintained lumbar lordosis. The vertebral heights, alignment and disc heights are normal. No visible acute fracture, dislocation or subluxation seen. No bony erosive changes. The disc levels are preserved normal. The paravertebral soft tissues are normal. The SI joints are symmetrical and normal. XR/XR lumbar spine 4V min IMPRESSION: Rotoscoliosis of dorsal spine with mild scoliosis of the upper lumbar spine. No visible acute fracture or dislocation of dorsal and lumbar spine. Electronically signed by: Escobar Montalvo MD 06/04/2025 11:38 AM [facility]
--- NOTE | ~2025-06-04 | XR_ITS ---
EXAMINATION: XR THORACIC SPINE CLINICAL INFORMATION: M41.25 - Other idiopathic scoliosis, thoracolumbar region COMPARISON: Thoracic spine 01/11/2022 TECHNIQUE: 3 views of the thoracic spine were obtained. FINDINGS: Dorsal spine: There is rotoscoliosis of mid dorsal spine. The vertebral heights, alignment and disc heights are normal. No obvious visible acute fracture, dislocation or subluxation seen. The paravertebral soft tissues are normal. lumbar spine: There is mild levoscoliosis with somewhat maintained lumbar lordosis. The vertebral heights, alignment and disc heights are normal. No visible acute fracture, dislocation or subluxation seen. No bony erosive changes. The disc levels are preserved normal. The paravertebral soft tissues are normal. The SI joints are symmetrical and normal. XR/XR thoracic spine 2V IMPRESSION: Rotoscoliosis of dorsal spine with mild scoliosis of the upper lumbar spine. No visible acute fracture or dislocation of dorsal and lumbar spine. Electronically signed by: Escobar Montalvo MD 06/04/2025 11:38 AM [facility]
--- OUTSIDE RECORDS SUMMARY | 2025-06-04 11:43 | XMS_ITS | Encounter Summary ---
Author Organization [facility] Address [address] [facility] [address] [place] [address] Care Team Providers Care Sports Athletic Trainer Name Role Phone Connie Valverde DO Primary Care Provider Encounter Details Date Type Department Care Team (Latest Contact Info) Description 03/08/2021 Abstract [facility] CONVERSION[facility] Dental, Provider, DDS Social History [...] on filedocumented in this encounter Care Teams Sports Athletic Trainer Relationship Specialty Start Date End Date Connie Valverde DO [address] [place] [address] PCP - General Family Medicine 06/15/20 07/01/23 documented as of this encounter
--- OUTSIDE RECORDS SUMMARY | 2025-06-04 11:43 | XMS_ITS | Clinical Summary ---
Author Organization [employer] [facility] Address [address] [place] [address] [address] [place] [address] Care Team Providers Care Damage Prevention Coordinator Name Role Phone Unavailable Primary Care Provider [...] Most Recently Relevant to Health Maintenance Insurance [facility] STAND ADULT DENTAL - HSN FULL (MEDICAID)
== END 2025-06-04 09:54 | disposition home or self-care (01) ==
LOC: HO.XRAY 09:53
PROVIDERS: PCP Internal Medicine; Visit Provider Nurse Practitioner Family
DX: M47.816 Spondylosis without myelopathy or radiculopathy, lumbar region (principal); M41.25 Other idiopathic scoliosis, thoracolumbar region; M96.1 Postlaminectomy syndrome, not elsewhere classified
CPT/HCPCS: 72070; 72110

== ENCOUNTER → 2025-06-04 09:57 | Outpatient (BNV) | payer OTHER, SELFPAY | PROVIDERS: PCP Internal Medicine; Visit Provider Radiology Diagnostic Radiology | DX: M41.25 Other idiopathic scoliosis, thoracolumbar region (principal) | CPT/HCPCS: 72070; 72110 ==